=== PATIENT | female | born 1980 | race Caucasian/White ===

== ENCOUNTER 2016-12-28 10:45 | Emergency (ER) | payer OTHER, SELFPAY ==
[2016-12-28 11:57] LABS: #Eosinphils 0.3 thou/uL (0.0-0.7); #Lymphocytes 1.8 thou/uL (1.20-3.40); #Monocytes 0.4 thou/uL (0.11-0.59); #Neutrophils 5.7 thou/uL (1.40-6.50); %Basophils 0.4 % (0.0-1.0); %Eosinophils 3.3 % (0.0-10.0); %Lymphocytes 21.8 % (21.0-51.0); %Monocytes 4.6 % (0.0-10.0); Hematocrit 42.8 % (36.0-47.0); Mean Platelet Volume 7.3 fL (7.4-10.4); Red Blood Cell (RBC) Count 4.43 mill/uL (4.20-5.40); White Blood Cell (WBC) Count 8.1 thou/uL (4.8-10.8)
[2016-12-28 12:17] LABS: Bilirubin Negative (Negative); Blood, Urine Negative (Negative); Glucose, Urine (Dipstick) Negative (Negative); Ketone, Urine Negative (Negative); Nitrite Negative (Negative); Protein, Urine (Dipstick) 30 mg/dL (Neg-Trace); Urobilinogen 0.2 mg/dL (0.2-1.0)
[2016-12-28 12:23] LABS: ALT (SGPT) 8 U/L (8-55); AST (SGOT) 11 U/L (5-34); Alkaline Phosphatase 81 U/L (40-150); Anion Gap 13 mmol/L (10-20); BUN (Urea Nitrogen) 11 mg/dL (7.0-18.7); Bilirubin, Total 0.3 mg/dL (0.2-1.2); Calc. Creatinine Clearance 0 mL/min (70-130); Calcium 9.4 mg/dL (7.8-10.44); Carbon Dioxide 14 mmol/L (22-29); Chloride 112 mmol/L (98-107); Estimated GFR-MDRD 78
[2016-12-28 12:23] LABS: Bacteria/HPF 1+ HPF (None Seen); Hyaline Casts/LPF 4-6 HYALINE CAST LPF (0-3 Hyaline)
[2016-12-28] MEDS ORDERED: Dexamethasone 10 MG/ML VIAL ONE (13:19)
--- NOTE | 2016-12-28 13:50 | RAD ---
PA AND LATERAL CHEST: Date: 12/28/16 HISTORY: Cough. COMPARISON: 09/11/12. FINDINGS: Cardiac silhouette and pulmonary vasculature are within normal limits. The lungs remain clear. There has been no interval change compared to prior study. IMPRESSION: No acute cardiopulmonary process. POS: [facility]
== END 2016-12-28 14:29 | disposition home or self-care (01) ==
LOC: ERS 10:45
DX: J40 Bronchitis, not specified as acute or chronic (principal); N39.0 Urinary tract infection, site not specified; I10 Essential (primary) hypertension; F31.9 Bipolar disorder, unspecified; F17.210 Nicotine dependence, cigarettes, uncomplicated; Z79.899 Other long term (current) drug therapy
CPT/HCPCS: 36415; 71020; 80053; 81003; 81015; 81025; 85025; 96372; J1100; J7620

== ENCOUNTER 2017-02-28 21:01 | Emergency (ER) | payer SELFPAY ==
[2017-02-28 21:28] LABS: Bilirubin Small (Negative); Blood, Urine Negative (Negative); Clarity Clear (Clear); Glucose, Urine (Dipstick) Negative (Negative); Leukocyte Small (Negative); Nitrite Negative (Negative); Protein, Urine (Dipstick) 30 mg/dL (Neg-Trace); Urobilinogen 0.2 mg/dL (0.2-1.0)
[2017-02-28] MEDS ORDERED: Ibuprofen 800 MG TAB ONE (21:37)
[2017-02-28 21:50] LABS: Bacteria/HPF 1+ HPF (None Seen); Hyaline Casts/LPF 0-3 HYALINE CAST LPF (0-3 Hyaline); RBC/HPF 0-3 HPF (0-3); Specific Gravity, Urine 1.036 (1.002-1.036)
== END 2017-02-28 22:15 | disposition home or self-care (01) ==
LOC: SCSER 21:01
DX: N39.0 Urinary tract infection, site not specified (principal); I10 Essential (primary) hypertension; F31.9 Bipolar disorder, unspecified; F17.210 Nicotine dependence, cigarettes, uncomplicated
CPT/HCPCS: 81003; 81015; 87804; 99406

== ENCOUNTER 2017-03-18 13:01 | Observation (INO) | payer SELFPAY ==
[2017-03-18 13:37] LABS: #Basophils 0.1 thou/uL (0.0-0.2); #Eosinphils 0.2 thou/uL (0.0-0.7); #Lymphocytes 2.7 thou/uL (1.20-3.40); #Monocytes 0.5 thou/uL (0.11-0.59); #Neutrophils 5.7 thou/uL (1.40-6.50); %Eosinophils 2.7 % (0.0-10.0); %Lymphocytes 29.1 % (21.0-51.0); %Monocytes 5.5 % (0.0-10.0); %Neutrophils 61.7 % (42.0-75.0); Mean Corpuscular Hemoglobin 29.2 pg (27.0-31.0); Mean Corpuscular Volume 91.2 fl (81.0-99.0); Mean Platelet Volume 9.2 fL (7.4-10.4); Platelet Count 275 thou/uL (130-400); RBC Distribution Width 14.2 % (11.5-14.5); White Blood Cell (WBC) Count 9.2 thou/uL (4.8-10.8)
[2017-03-18 13:55] LABS: ALT (SGPT) 39 U/L (8-55); AST (SGOT) 34 U/L (5-34); Albumin 3.8 g/dL (3.5-5.0); Alkaline Phosphatase 92 U/L (40-150); Anion Gap 17 mmol/L (10-20); BUN (Urea Nitrogen) 11 mg/dL (7.0-18.7); Bilirubin, Total 0.3 mg/dL (0.2-1.2); Calc. Creatinine Clearance 0 mL/min (70-130); Calcium 9.8 mg/dL (7.8-10.44); Carbon Dioxide 20 mmol/L (22-29); Chloride 104 mmol/L (98-107); Estimated GFR-MDRD 67; Globulin 3.7 g/dL (2.4-3.5); Glucose 100 mg/dL (70-105); Potassium 3.8 mmol/L (3.5-5.1); Protein, Total 7.5 g/dL (6.0-8.3); Sodium 137 mmol/L (136-145)
[2017-03-18 13:57] LABS: BHCG - Serum Negative (NEGATIVE); Pregs Control Background? CLEAR/WHITE (CLR/WHITE); Pregs Control Bar Appear? YES (CONTROL BAR)
[2017-03-18 14:14] LABS: Bilirubin Moderate (Negative); Blood, Urine Moderate (Negative); Clarity Cloudy (Clear); Glucose, Urine (Dipstick) Negative (Negative); Leukocyte Large (Negative); Nitrite Negative (Negative); Protein, Urine (Dipstick) > or equal to 300 mg/dL (Neg-Trace); Specific Gravity, Urine 1.025 (1.005-1.030); Urobilinogen 0.2 mg/dL (0.2-1.0)
[2017-03-18 14:19] LABS: Bacteria/HPF Rare-Few HPF (None Seen)
[2017-03-18] MEDS ORDERED: Ondansetron HCl/PF 4 MG/2 ML Vial IVP PRN (21:57)
[2017-03-18] MEDS ORDERED: Ondansetron ODT 4 MG TAB SL PRN (21:57)
[2017-03-18] MEDS ORDERED: Acetaminophen 325 MG TAB PO PRN (21:57)
[2017-03-18] MEDS ORDERED: Sulfameth/Trimethoprim DS 800-160mg TAB PO SCH (22:00)
[2017-03-18] MEDS: Sodium Chloride 0.9% 1,000 ML IV SCH (22:13)
[2017-03-19] MEDS: Sodium Chloride 0.9% 1,000 ML IV SCH ×2 (01:42→06:13)
[2017-03-19 08:28] VITALS: BMI 34.9
[2017-03-19] MEDS ORDERED: Sulfameth/Trimethoprim DS 800-160mg TAB PO SCH (09:00)
[2017-03-19 09:04] LABS: #Basophils 0.1 thou/uL (0.0-0.2); #Eosinphils 0.2 thou/uL (0.0-0.7); #Lymphocytes 1.8 thou/uL (1.20-3.40); #Monocytes 0.4 thou/uL (0.11-0.59); #Neutrophils 3.2 thou/uL (1.40-6.50); %Basophils 1.3 % (0.0-1.0); %Eosinophils 3.3 % (0.0-10.0); %Lymphocytes 31.4 % (21.0-51.0); %Monocytes 7.7 % (0.0-10.0); %Neutrophils 56.4 % (42.0-75.0); Hemoglobin 11.7 g/dL (12.0-16.0); Mean Corpuscular HGB CONC 31.8 g/dL (32.0-36.0); Mean Corpuscular Hemoglobin 30.3 pg (27.0-31.0); Mean Corpuscular Volume 95.3 fl (81.0-99.0); Mean Platelet Volume 8.8 fL (7.4-10.4); Platelet Count 207 thou/uL (130-400); RBC Distribution Width 13.9 % (11.5-14.5); Red Blood Cell (RBC) Count 3.87 mill/uL (4.20-5.40); White Blood Cell (WBC) Count 5.6 thou/uL (4.8-10.8)
[2017-03-19 09:09] LABS: Anion Gap 10 mmol/L (10-20); BUN (Urea Nitrogen) 8 mg/dL (7.0-18.7); Calc. Creatinine Clearance 188 mL/min (70-130); Calcium 7.7 mg/dL (7.8-10.44); Carbon Dioxide 14 mmol/L (22-29); Chloride 116 mmol/L (98-107); Estimated GFR-MDRD Greater than 90; Glucose 80 mg/dL (70-105); Magnesium 1.6 mg/dL (1.6-2.6); Potassium 3.7 mmol/L (3.5-5.1); Sodium 136 mmol/L (136-145)
[2017-03-19] MEDS ORDERED: Sodium Chloride 0.9% 1,000 ML IV SCH (11:08)
[2017-03-19] MEDS ORDERED: HYDROcodone/Acetaminophen 10/325 mg Tablet PO PRN (11:08)
[2017-03-19] MEDS ORDERED: HYDROcodone/Acetaminophen 5/325 mg Tablet PO PRN (11:08)
[2017-03-19] MEDS ORDERED: Acetaminophen 325 MG TAB PO PRN (11:08)
[2017-03-19] MEDS ORDERED: Ondansetron ODT 4 MG TAB PO PRN (11:08)
[2017-03-19] MEDS ORDERED: Enoxaparin Sodium 40 MG/0.4 ML SYRINGE SC SCH (11:15)
[2017-03-19 14:57] LABS: Bilirubin Negative (Negative); Blood, Urine Negative (Negative); Clarity CLEAR (Clear); Glucose, Urine (Dipstick) Negative (Negative); Leukocyte Trace (Negative); Nitrite Negative (Negative); Protein, Urine (Dipstick) Negative (Neg-Trace); Specific Gravity, Urine 1.011 (1.002-1.036); Urobilinogen 0.2 mg/dL (0.2-1.0); pH, Urine 6.5 (5.0-9.0)
[2017-03-19 15:03] LABS: Bacteria/HPF Rare-Few HPF (None Seen); Hyaline Casts/LPF 0-3 HYALINE CAST LPF (0-3 Hyaline); Pathc Cast-AUWi Flag 0.27 (0-2.49); RBC/HPF 0-3 HPF (0-3)
[2017-03-19 16:50] VITALS: BP 103/59; TEMP 98.7
--- NOTE | 2017-03-19 16:53 | DIS ---
DATE OF ADMISSION: 03/18/2017 DATE OF DISCHARGE: 03/19/2017 DISCHARGE DIAGNOSES: 1. Moderate dehydration. 2. Mild urinary tract infection. 3. Orthostatic hypotension. 4. Medical nonadherence. CONSULTATIONS: None. PROCEDURES: None. HOSPITAL COURSE: Ms. Newton is a 37-year-old female who has had a diagnosis of UTI in early of this year. She did not fill her medicine due to cost and thus never got it treated. She states she has been eating and drinking fine, but over the last few days has had lightheadedness when standing and syncopized a few days prior to admission. On arrival, she was noted to be 83/50, lactate was negative, bicarbonate 20 and we were called for ad mission. The patient was accepted by the dry cell battery assembler and transferred to the floor. The patient was evaluated b y me this morning on rounds. She was continued on antibiotics, through the day her blood pressure re mained stable after 2 liters of IV fluids. Orthostatic blood pressures done this morning showed a he art rate stable and blood pressure in the low 100s over 50s. She has no lightheadedness. Through the day, she is able to tolerate breakfast and lunch without any difficulty or nausea and vom iting and this afternoon was stable for discharge. PHYSICAL EXAMINATION: The patient was seen and examined on the day of discharge. Discharge plan and disposition was discussed with the patient face to face at the bedside. DISCHARGE MEDICATIONS: Cipro 500 mg p.o. b.i.d., 8 tablets prescribed 1 p.o. b.i.d. until gone, of 03/20/2017. FOLLOWUP APPOINTMENTS: Primary care physician. She does not claim any PCP though, it is listed as Aidee Archuleta in the computer system. DISCHARGE DIET: No restrictions. DISCHARGE ACTIVITY: As tolerated. DISCHARGE CONDITION: Stable. DISPOSITION: Being discharged home via private vehicle.
--- NOTE | 2017-03-19 19:22 | HP ---
PRIMARY CARE PHYSICIAN: None. Listed as Dr. Iván Archuleta in the computer. The patient was placed in observation in the ER, 03/18/2017. DATE OF SERVICE: 03/19/2017 TIME OF SERVICE: 1020. CHIEF COMPLAINT: Urinary tract infection, low blood pressure. HISTORY OF PRESENT ILLNESS: Ms. Newton is a 37-year-old female, who presented to the emergency de partment on 03/18/2017 for lightheadedness and syncope. She basically woke up on the morning of 02/28 feeling lightheaded, so she passed out x1 around noon on 03/17/2017. She continued to feel li ghtheaded when standing up and just did not feel right, so decided to present to the emergency depart ment on 03/18/2017 for evaluation. She had a history of being diagnosed with a UTI back in early February of this year, she was prescribe d an antibiotic, but never filled it due to cost. She has had some suprapubic abdominal pain and dys uria. Denies any hematuria. In the emergency room, she was noted to have pyuria, but only few bacteria. She had few epithelial c ells and was subsequently admitted for UTI and possible sepsis. The rest of her labs remained normal . The patient was assessed by the application security architect and turned over to the day shift to complete the admiss ion. On my arrival, she was feeling fine. She tolerated breakfast without any difficulties. Review of the chart showed in the emergency department, she had 3 liters normal saline and has levofl oxacin. PAST MEDICAL HISTORY: 1. Hypertension. 2. History of a back fracture several years ago. 3. Anxiety/depression. 4. History of suicidal ideation overdose in the summer of 2016. 5. Bipolar disorder. PAST SURGICAL HISTORY: Appendectomy and tonsillectomy remotely. HOME MEDICATIONS: None. ALLERGIES: ERYTHROMYCIN and PENICILLIN, cause rash and sore throat. FAMILY HISTORY: Negative for clotting or bleeding disorder, no immune dysfunction. SOCIAL HISTORY: Significant for tobacco about 6-7 cigarettes per day. Rare alcohol use socially and she does have 3 kids at home with her. REVIEW OF SYSTEMS: A 10-point review of systems was performed, negative for all other systems except as per HPI. PHYSICAL EXAMINATION: VITAL SIGNS: Temperature on arrival 97.9, temperature max since presentation is 99.2, current pulse 67, blood pressure 98/50, respiratory rate 18, satting 91% on room air. GENERAL: She is awake. She is alert. She is oriented x3. She is a well-developed and well-nourish ed white female, appears to be in no acute distress. HEENT: Normocephalic, atraumatic. Pupils are equal, round, and reactive to light bilaterally. Mucu s membranes are moist. She has no visible lesions. No thrush. NECK: Supple. There is no lymphadenopathy, no JVD, no thyromegaly. She has normal carotid upstroke s without bruits. LUNGS: Clear. She has no wheezing, no rales, or rhonchi. CARDIOVASCULAR: Normal S1, S2. No S3, S4. No audible murmurs. ABDOMEN: Soft, nontender, and nondistended. No masses, no organomegaly. No rebound, rigidity, or g uarding. Mild superior temporal tenderness. No CVA tenderness. EXTREMITIES: No cyanosis or clubbing. No edema. 2+ peripheral pulses. SKIN: Warm and well perfused. There are no rashes. No lesions. NEUROLOGIC: Cranial nerves II-XII grossly intact. She has 5/5 strength in all 4 extremities. No fo butch deficits. Normal speech pattern. MUSCULOSKELETAL: Normal to inspection. No joint inflammation or palpable effusions. LABORATORY DATA: Sodium 137, potassium 3.8, chloride 104, bicarb 20, BUN 11, creatinine 0.94, glucos e 100, and calcium 9.8. Lactic acid 1.1. Urinalysis shows 4-6 squamous epithelial cells, greater th an 50 white blood cells, few bacteria, negative nitrite. Liver functions normal. CBC showed white count 9.2, hemoglobin 14.0, hematocrit of 43.8, and platelet count is 275,000. ASSESSMENT AND PLAN: 1. Orthostasis: Not quite clear. The patient states she is eating and drinking okay. After gettin g 3 liters of fluids, she did not have any further orthostasis or a negative tilt, seemed to be resol tabitha. 2. Possible urinary tract infection: She was diagnosed earlier this month. She does have pyuria an d a few squamous cells, she has only few bacteria and negative nitrite. We will treat her for 5 days with Cipro. Most of the day she did not eat or drink okay. They will let her go home on Cipro. 3. Hypertension, not on medication. Certainly not hypertensive now. 4. History of anxiety/depression/bipolar disorder, not on treatment.
[2017-03-19] MEDS ORDERED: Famotidine 20 MG TAB PO SCH (21:00)
--- NOTE | 2017-03-21 13:54 | PDOC.EVN ---
Event Note - Event Note Event Note: RN called - Patient here today since she lost her prescription. I sent Cipro to [facility] electronically.
== END 2017-03-19 17:21 | disposition home or self-care (01) ==
LOC: SCSER 13:01 → INTOOBSV 18:42 → 2NO 18:42
PROVIDERS: ADMIT Internal Medicine; ATTEND Internal Medicine
DX: N39.0 Urinary tract infection, site not specified (principal); E86.0 Dehydration; I95.1 Orthostatic hypotension; F31.9 Bipolar disorder, unspecified; F17.210 Nicotine dependence, cigarettes, uncomplicated; Z88.1 Allergy status to other antibiotic agents; Z88.0 Allergy status to penicillin; Z91.14 Patient's other noncompliance with medication regimen; Z90.49 Acquired absence of other specified parts of digestive tract; Z90.89 Acquired absence of other organs
CPT/HCPCS: 36415; 51701; 80048; 80053; 81001; 81003; 81015; 83605; 83690; 83735; 84703; 85025; 87040; 87086; 93005; 96361; 96365; 96372; A4353; G0378; J1650; J1956

== ENCOUNTER 2017-03-27 15:58 | Emergency (ER) | payer SELFPAY ==
[2017-03-27 16:54] LABS: Bilirubin Negative (Negative); Blood, Urine Negative (Negative); Clarity Clear (Clear); Glucose, Urine (Dipstick) Negative (Negative); Leukocyte Negative (Negative); Nitrite Negative (Negative); Protein, Urine (Dipstick) Negative (Neg-Trace); Urobilinogen 0.2 mg/dL (0.2-1.0); pH, Urine 6.5 (5.0-9.0)
[2017-03-27 16:58] LABS: #Basophils 0.1 thou/uL (0.0-0.2); #Eosinphils 0.3 thou/uL (0.0-0.7); #Lymphocytes 3.8 thou/uL (1.20-3.40); #Monocytes 0.5 thou/uL (0.11-0.59); #Neutrophils 3.3 thou/uL (1.40-6.50); %Basophils 1.5 % (0.0-1.0); %Eosinophils 3.4 % (0.0-10.0); %Lymphocytes 47.4 % (21.0-51.0); %Monocytes 6.6 % (0.0-10.0); Hemoglobin 10.8 g/dL (12.0-16.0); Mean Corpuscular HGB CONC 32.9 g/dL (32.0-36.0); Mean Corpuscular Hemoglobin 29.3 pg (27.0-31.0); Mean Corpuscular Volume 89.3 fl (81.0-99.0); Mean Platelet Volume 9.2 fL (7.4-10.4); Platelet Count 258 thou/uL (130-400); Red Blood Cell (RBC) Count 3.69 mill/uL (4.20-5.40); White Blood Cell (WBC) Count 8.1 thou/uL (4.8-10.8)
[2017-03-27 17:16] LABS: Amphetamine Not Detected (NotDetected); Cocaine Metabolite Screen Not Detected (NotDetected); Methamphetamine Not Detected (NotDetected); Opiate Screen Not Detected (NotDetected); Phencyclidine (PCP) Not Detected (NotDetected); THC/Cannabinoid Screen Not Detected (NotDetected)
[2017-03-27 17:17] LABS: Barbiturates Screen Not Detected (NotDetected); Benzodiazepine Screen Detected (NotDetected); Medtox Control Line Valid? VALID (VALID); Methadone Not Detected (NotDetected); Oxycodone Screen Not Detected (NotDetected); Tricyclic Screen Not Detected (NotDetected)
[2017-03-27 17:20] LABS: ALT (SGPT) 18 U/L (8-55); AST (SGOT) 14 U/L (5-34); Albumin 3.9 g/dL (3.5-5.0); Alkaline Phosphatase 70 U/L (40-150); Anion Gap 15 mmol/L (10-20); BUN (Urea Nitrogen) 10 mg/dL (7.0-18.7); Bilirubin, Total 0.2 mg/dL (0.2-1.2); Calc. Creatinine Clearance 0 mL/min (70-130); Calcium 9.2 mg/dL (7.8-10.44); Carbon Dioxide 17 mmol/L (22-29); Chloride 109 mmol/L (98-107); Estimated GFR-MDRD 82; Globulin 2.7 g/dL (2.4-3.5); Glucose 98 mg/dL (70-105); Potassium 3.1 mmol/L (3.5-5.1); Protein, Total 6.6 g/dL (6.0-8.3); Sodium 138 mmol/L (136-145)
[2017-03-27 17:21] LABS: Troponin I Less than 0.010 ng/mL (< 0.028)
--- NOTE | 2017-03-27 17:26 | RAD ---
CHEST 1 VIEW: Date: 03/27/17 HISTORY: Cough. COMPARISON: 03/16/07 and 12/28/16. FINDINGS: Portable single view chest demonstrates a normal cardiac silhouette. Pulmonary vessels and hilum are normal. Costophrenic angles are clear. No consolidation or mass. No pneumothorax or osseous abnormali ties. IMPRESSION: No acute cardiopulmonary process. POS: [facility]
[2017-03-27 17:32] LABS: Acetaminophen Less than 6.0 mcg/mL (10.0-30.0); Salicylate Less than 8.0 mg/dL (15.0-30.0)
[2017-03-27] MEDS ORDERED: Potassium Chloride 20 MEQ TAB ONE (17:47)
== END 2017-03-27 18:25 | disposition home or self-care (01) ==
LOC: SCSER 15:58
DX: I95.1 Orthostatic hypotension (principal); F11.90 Opioid use, unspecified, uncomplicated; E87.6 Hypokalemia; F17.210 Nicotine dependence, cigarettes, uncomplicated; F41.9 Anxiety disorder, unspecified; F31.9 Bipolar disorder, unspecified; Z79.899 Other long term (current) drug therapy
CPT/HCPCS: 71045; 80053; 80306; 80307; 81003; 83605; 84484; 85025; 93005; 96361; 96374; J1610

== ENCOUNTER 2017-05-27 12:48 | Emergency (ER) | payer SELFPAY ==
[2017-05-27 13:42] LABS: #Basophils 0.1 thou/uL (0.0-0.2); #Eosinphils 0.2 thou/uL (0.0-0.7); #Lymphocytes 1.4 thou/uL (1.20-3.40); #Monocytes 0.5 thou/uL (0.11-0.59); #Neutrophils 5.1 thou/uL (1.40-6.50); %Basophils 1.1 % (0.0-1.0); %Eosinophils 3.4 % (0.0-10.0); %Lymphocytes 18.6 % (21.0-51.0); %Monocytes 7.2 % (0.0-10.0); %Neutrophils 69.8 % (42.0-75.0); Hemoglobin 12.1 g/dL (12.0-16.0); Mean Corpuscular HGB CONC 31.9 g/dL (32.0-36.0); Mean Corpuscular Hemoglobin 27.5 pg (27.0-31.0); Mean Corpuscular Volume 86.1 fl (81.0-99.0); Mean Platelet Volume 9.7 fL (7.4-10.4); Platelet Count 269 thou/uL (130-400); RBC Distribution Width 15.1 % (11.5-14.5); Red Blood Cell (RBC) Count 4.41 mill/uL (4.20-5.40); White Blood Cell (WBC) Count 7.3 thou/uL (4.8-10.8)
[2017-05-27 13:46] LABS: BHCG - Serum Negative (NEGATIVE); Pregs Control Background? CLEAR/WHITE (CLR/WHITE); Pregs Control Bar Appear? YES (CONTROL BAR)
[2017-05-27 13:53] LABS: ALT (SGPT) 13 U/L (8-55); AST (SGOT) 15 U/L (5-34); Acetaminophen Less than 6.0 mcg/mL (10.0-30.0); Alcohol Less than 10 mg/dL (Less than 10); Alkaline Phosphatase 85 U/L (40-150); Anion Gap 12 mmol/L (10-20); BUN (Urea Nitrogen) 8 mg/dL (7.0-18.7); Bilirubin, Total 0.3 mg/dL (0.2-1.2); Calc. Creatinine Clearance 0 mL/min (70-130); Calcium 9.3 mg/dL (7.8-10.44); Carbon Dioxide 18 mmol/L (22-29); Chloride 112 mmol/L (98-107); Estimated GFR-MDRD 88; Globulin 3.2 g/dL (2.4-3.5); Glucose 60 mg/dL (70-105); Protein, Total 7.2 g/dL (6.0-8.3); Salicylate Less than 8.0 mg/dL (15.0-30.0); Sodium 139 mmol/L (136-145)
[2017-05-27 14:12] LABS: Thyroid Stimulating Hormone 0.9267 uIU/mL (0.35-4.94)
[2017-05-27 14:13] LABS: Bilirubin Negative (Negative); Blood, Urine Trace (Negative); Clarity Cloudy (Clear); Glucose, Urine (Dipstick) Negative (Negative); Leukocyte Large (Negative); Nitrite Positive (Negative); Protein, Urine (Dipstick) Negative (Neg-Trace); Urobilinogen 0.2 mg/dL (0.2-1.0); pH, Urine 6.5 (5.0-9.0)
[2017-05-27 14:15] LABS: Bacteria/HPF 3+ HPF (None Seen); RBC/HPF 21-50 HPF (0-3); WBC/HPF 21-50 HPF (0-3)
[2017-05-27 14:23] LABS: Opiate Screen Detected (NotDetected)
[2017-05-27 14:24] LABS: Amphetamine Not Detected (NotDetected); Barbiturates Screen Not Detected (NotDetected); Benzodiazepine Screen Detected (NotDetected); Cocaine Metabolite Screen Not Detected (NotDetected); Medtox Control Line Valid? VALID (VALID); Methadone Not Detected (NotDetected); Methamphetamine Not Detected (NotDetected); Oxycodone Screen Not Detected (NotDetected); Phencyclidine (PCP) Not Detected (NotDetected); THC/Cannabinoid Screen Not Detected (NotDetected); Tricyclic Screen Not Detected (NotDetected)
[2017-05-27] MEDS ORDERED: Potassium Chloride 20 MEQ TAB ONE (15:31)
[2017-05-27] MEDS ORDERED: Ciprofloxacin 500 MG TAB ONE (15:31)
[2017-05-27 18:53] LABS: HBCM Index 0.08 S/CO (0-0.79); HBSAg Index 0.21 S/CO (0-0.99); HIV (1/2) Antibody/Antigen Non-Reactive (NonReactive); HIV 1/2 INDEX 0.09 S/CO (<1.00); Hep A IgM AB Non-Reactive (NonReactive); Hep B Surf Ag Non-Reactive S/CO (NonReactive); Hep C IgG Ab Non-Reactive (NonReactive); Hep C Index 0.19 S/CO (0-0.79); Hepatitis B Core IGM Abs Non-Reactive (NonReactive)
== END 2017-05-27 16:25 | disposition home or self-care (01) ==
LOC: SCSER 12:48
DX: F11.10 Opioid abuse, uncomplicated (principal); F32.9 Major depressive disorder, single episode, unspecified; N39.0 Urinary tract infection, site not specified; I10 Essential (primary) hypertension; F41.9 Anxiety disorder, unspecified; F17.210 Nicotine dependence, cigarettes, uncomplicated; Z79.899 Other long term (current) drug therapy
CPT/HCPCS: 36415; 80053; 80074; 80306; 80307; 81003; 81015; 82550; 84443; 84703; 85025; 87389; 93005; 99406

== ENCOUNTER 2017-07-07 13:10 | Emergency (ER) | payer SELFPAY | END 2017-07-07 13:41 | disposition home or self-care (01) | LOC: ERS 13:10 | DX: L03.317 Cellulitis of buttock (principal); I10 Essential (primary) hypertension; F41.9 Anxiety disorder, unspecified; F31.9 Bipolar disorder, unspecified; F17.210 Nicotine dependence, cigarettes, uncomplicated; Z79.899 Other long term (current) drug therapy | CPT/HCPCS: 99283 ==

== ENCOUNTER 2017-11-30 19:48 | Emergency (ER) | payer OTHER ==
[2017-11-30] MEDS ORDERED: Lidocaine 1% w/Epinephrine 1:100K 20 ML VIAL ONE (21:14)
--- NOTE | 2017-12-01 02:49 | HP ---
HISTORY OF PRESENT ILLNESS AND ER EVALUATION: A 37-year-old female who presents to the emergency jonathon m after injecting heroin into her left hip. She has developed an abscess over her left hip. Dr. Tea love has evaluated her and performed a bedside ultrasound and asked me to see her regarding this comp ronaldo abscess multifocal left hip. The patient states she is allergic to TRAMADOL and causes GI upset and her tongue . The patient states that she has tried to stop using heroin and she would like to stop. I have asked the emergency room nurses to provide her resources in the community to help he r with that. PHYSICAL EXAMINATION: Patient has a large abscess on left hip, in the skin and subcutaneous tissues it appears clinically, there are two separate areas, one laterally and one a little more posterior se parate. ASSESSMENT: Left hip abscess. PLAN: Bedside drainage in the emergency room, discharged home. Would ask her to see me in the offic e in a week. I have explained to her who was present. Wound care,I have asked them to remov e the dressings tomorrow, washing with soap and water in the bath or shower, washing the open wound w ith soap and water, patting it dry, and placing normal saline wet to dry dressings. Dressing supplie s have been provided by the nurses. The patient will follow up in my office in a week or two and butch l sooner if she has any problems. She is given clindamycin and Bactrim by Dr. Izaguirre. She reports pain medications and we have offered tramadol, but she states that TRAMADOL causes her GI upset and h er we can give her is ibuprofen and Tylenol, which she says she has at home and she will use th at.
--- NOTE | 2017-12-01 02:50 | OP ---
PREOPERATIVE DIAGNOSIS: Abscess multifocal left hip after heroin skin popping. POSTOPERATIVE DIAGNOSIS: Abscess multifocal left hip after heroin skin popping. PROCEDURE: Incision and drainage at bedside abscesses left hip; one is large that one approximately 8 cm, the other one smaller 3-4 cm. Copious purulent material evacuated and sent for culture. wet-to-dry dressing. SURGEON: Dr. Jairon Regalado. ANESTHESIA: 1% Xylocaine with epinephrine, local anesthetic. PROCEDURE IN DETAIL: At the patient's bedside, left hip was prepared with Betadine and local anesthe tic 1% Xylocaine with epinephrine infiltrated into skin and subcutaneous tissue and large abscess dra gordillo a purulent material. Loculations broken down and saline wet-to-dry dressings applied. A fluctu ant area was noted slightly a little more posterior area and this area was also prepared, anesthetize d with local anesthetic and drained of approximately 3-4 cm abscess with copious purulent material. Saline wet-to-dry dressings applied. Wound care explained and patient discharged home with clindamyc in and Bactrim per Dr. Izaguirre, and she will take ibuprofen and Tylenol .
== END 2017-11-30 23:27 | disposition home or self-care (01) ==
LOC: ERS 19:48
DX: L02.416 Cutaneous abscess of left lower limb (principal); F19.10 Other psychoactive substance abuse, uncomplicated; I10 Essential (primary) hypertension; F41.9 Anxiety disorder, unspecified; F31.9 Bipolar disorder, unspecified; F17.210 Nicotine dependence, cigarettes, uncomplicated; Z79.899 Other long term (current) drug therapy
CPT/HCPCS: 10060; 96365; J2001; J3370

== ENCOUNTER 2018-02-10 18:01 | Emergency (ER) | payer OTHER ==
[2018-02-10] MEDS ORDERED: Adacel (T-DAP) 0.5 ML SYRINGE ONE (18:48)
== END 2018-02-10 19:05 | disposition home or self-care (01) ==
LOC: ERS 18:01
DX: N61.1 Abscess of the breast and nipple (principal); N61.0 Mastitis without abscess; I10 Essential (primary) hypertension; F31.9 Bipolar disorder, unspecified; F17.210 Nicotine dependence, cigarettes, uncomplicated; Z79.899 Other long term (current) drug therapy
CPT/HCPCS: 90471; 90715

== ENCOUNTER 2018-06-05 19:17 | Emergency (ER) | payer OTHER ==
[2018-06-05 20:08] LABS: Pregnancy Test - Urine (BHCG) Negative (Negative); Pregu Control Background? CLEAR/WHITE (CLR/WHITE); Pregu Control Bar Appear? YES (CONTROL BAR)
[2018-06-05] MEDS ORDERED: Ketorolac Tromethamine 30 MG/ML VIAL ONE (20:15)
== END 2018-06-05 20:50 | disposition home or self-care (01) ==
LOC: SCSER 19:17
DX: M54.41 Lumbago with sciatica, right side (principal); I10 Essential (primary) hypertension; F31.9 Bipolar disorder, unspecified; F17.210 Nicotine dependence, cigarettes, uncomplicated; Z79.899 Other long term (current) drug therapy
CPT/HCPCS: 81025; 96372; J1885

== ENCOUNTER 2018-06-30 16:47 | Emergency (ER) | payer OTHER ==
[2018-06-30] MEDS ORDERED: Aspirin Chewable 81 MG TAB ONE (17:21)
[2018-06-30] MEDS ORDERED: Lidocaine Viscous Sol 2% 15 ml UD Cup ONE (17:24)
[2018-06-30] MEDS ORDERED: Mag-Al 1200 mg/1200 mg/30 ML UDCUP ONE (17:24)
--- NOTE | 2018-06-30 17:27 | RAD ---
Portable frontal chest radiograph: 06/30/2018 COMPARISON: 03/27/2017 HISTORY: Vomiting, cough, chest pain FINDINGS: Lungs are clear. Heart and mediastinal contours appear within normal limits. IMPRESSION: No acute findings.
[2018-06-30 17:41] LABS: #Basophils 0.1 thou/uL (0.0-0.2); #Eosinphils 0.3 thou/uL (0.0-0.7); #Lymphocytes 3.4 thou/uL (1.20-3.40); #Monocytes 0.8 thou/uL (0.11-0.59); #Neutrophils 8.7 thou/uL (1.40-6.50); %Basophils 0.5 % (0.0-1.0); %Eosinophils 2.1 % (0.0-10.0); %Lymphocytes 25.7 % (21.0-51.0); %Monocytes 6.2 % (0.0-10.0); %Neutrophils 65.6 % (42.0-75.0); Mean Corpuscular HGB CONC 33.3 g/dL (32.0-36.0); Mean Corpuscular Hemoglobin 28.2 pg (27.0-31.0); Mean Corpuscular Volume 84.6 fL (78.0-98.0); Mean Platelet Volume 8.4 fL (7.4-10.4); Platelet Count 777 thou/uL (130-400); RBC Distribution Width 15.8 % (11.5-14.5); Red Blood Cell (RBC) Count 4.27 mill/uL (4.20-5.40); White Blood Cell (WBC) Count 13.3 thou/uL (4.8-10.8)
[2018-06-30 18:29] LABS: BHCG - Serum Negative (NEGATIVE); Pregs Control Background? CLEAR/WHITE (CLR/WHITE); Pregs Control Bar Appear? YES (CONTROL BAR)
[2018-06-30 18:47] LABS: ALT (SGPT) 57 U/L (8-55); AST (SGOT) 38 U/L (5-34); Albumin 3.9 g/dL (3.5-5.0); Alkaline Phosphatase 131 U/L (40-150); Anion Gap 19 mmol/L (10-20); BUN (Urea Nitrogen) 14 mg/dL (7.0-18.7); Bilirubin, Total Less than 0.2 mg/dL (0.2-1.2); Calc. Creatinine Clearance 0 mL/min (70-130); Calcium 9.5 mg/dL (7.8-10.44); Carbon Dioxide 12 mmol/L (22-29); Chloride 111 mmol/L (98-107); Estimated GFR-MDRD Greater than 90; Globulin 3.7 g/dL (2.4-3.5); Glucose 91 mg/dL (70-105); Potassium 3.5 mmol/L (3.5-5.1); Protein, Total 7.6 g/dL (6.0-8.3); Sodium 138 mmol/L (136-145)
== END 2018-06-30 19:14 | disposition home or self-care (01) ==
LOC: ERS 16:47
DX: R07.89 Other chest pain (principal); J20.9 Acute bronchitis, unspecified; K21.9 Gastro-esophageal reflux disease without esophagitis; I10 Essential (primary) hypertension; F17.210 Nicotine dependence, cigarettes, uncomplicated; Z79.899 Other long term (current) drug therapy
CPT/HCPCS: 36415; 71045; 80053; 84484; 84703; 85025; 87804; 93005; 96360

== ENCOUNTER 2018-07-31 15:01 | Outpatient (CLI) | payer OTHER ==
[~2018-07-31 15:01] MED LIST: Gadobenate Dimeglumine 529 MG/1 ML (20ML VIAL) ONE
--- NOTE | 2018-07-31 16:35 | MRI ---
PRE AND POSTCONTRAST ENHANCED MRI LUMBAR SPINE: HISTORY: Dropfoot. M21.372. Multiplanar, multisequence pre and postcontrast enhanced MRI images lumbar spine obtained. FINDINGS: For the purposes of this dictation, the last freely mobile vertebral body will be considered to be th e L5 vertebral body. All other vertebral bodies are numbered according to this. T12-L1, L1-2, L2-3: Unremarkable. L3-4: There is disc desiccation. There is a mild broad-based central disc protrusion resulting in mil d compression of the thecal sac. The neural foramen are patent. L4-5: There is a huge central disc extrusion. The extruded material measures 1.5 x 1.1 x 1.8 cm. This results in severe compression of the thecal sac, central spine, and lateral recesses. L5-S1: There is a left L5-S1 central, paracentral and lateral recess disc protrusion which compresses the left L5-S1 lateral recess and mildly compresses the thecal sac. IMPRESSION: Large central L4-5 disc extrusion markedly compressing the thecal sac and resulting in critical L4-5 spinal stenosis. CODE T Transcribed Date/Time: 07/31/2018 4:42 PM
== END 2018-07-31 15:02 | disposition home or self-care (01) ==
LOC: SCSMRI 15:01
PROVIDERS: ATTEND Family Medicine
DX: M21.372 Foot drop, left foot (principal); M48.061 Spinal stenosis, lumbar region without neurogenic claudication; M51.26 Other intervertebral disc displacement, lumbar region
CPT/HCPCS: 72158; A9577

== ENCOUNTER 2018-08-07 13:34 | Outpatient (CLI) | payer OTHER ==
[2018-08-07 15:33] LABS: Mean Corpuscular HGB CONC 32.3 g/dL (32.0-36.0); Mean Corpuscular Hemoglobin 28.8 pg (27.0-31.0); Mean Corpuscular Volume 89.1 fL (78.0-98.0); Mean Platelet Volume 8.1 fL (7.4-10.4); Platelet Count 311 thou/uL (130-400); RBC Distribution Width 14.2 % (11.5-14.5); Red Blood Cell (RBC) Count 3.81 mill/uL (4.20-5.40); White Blood Cell (WBC) Count 6.5 thou/uL (4.8-10.8)
[2018-08-07 15:39] LABS: BHCG - Serum Negative (NEGATIVE); Pregs Control Background? CLEAR/WHITE (CLR/WHITE); Pregs Control Bar Appear? YES (CONTROL BAR)
[2018-08-07 15:54] LABS: Anion Gap 14 mmol/L (10-20); BUN (Urea Nitrogen) 15 mg/dL (7.0-18.7); Calc. Creatinine Clearance 0 mL/min (70-130); Calcium 8.8 mg/dL (7.8-10.44); Carbon Dioxide 14 mmol/L (22-29); Chloride 115 mmol/L (98-107); Estimated GFR-MDRD 88; Glucose 74 mg/dL (70-105); PTT 24.9 SEC (22.9-36.1); Potassium 3.8 mmol/L (3.5-5.1); Prothrombin Time 13.5 SEC (12.0-14.7); Sodium 139 mmol/L (136-145)
== END 2018-08-07 13:35 | disposition home or self-care (01) ==
LOC: LABBT 13:34
PROVIDERS: ATTEND Surgery
DX: Z01.818 Encounter for other preprocedural examination (principal); M51.26 Other intervertebral disc displacement, lumbar region; R29.898 Other symptoms and signs involving the musculoskeletal system
CPT/HCPCS: 80048; 84703; 85027; 85610; 85730; 93005; 93010

== ENCOUNTER 2018-08-29 13:26 | Inpatient (IN) | payer OTHER, SELFPAY ==
--- NOTE | 2018-08-29 14:43 | ULT ---
ULTRASOUND WITH DOPPLER DUPLEX VENOUS LOWER EXTREMITY LEFT: CPT: 97608 ICD-10-PCS: B54D HISTORY: Emergency exam for edema. TECHNIQUE: Color flow Doppler, spectral waveform analysis of pulsed Doppler, and fisher-scale imaging with alycia ricki and augmentation, were used to evaluate the bilateral common femoral, femoral, popliteal, estate attorney ior tibial, and superficial femoral, veins; and the proximal portions of the profunda femoral and gre ater saphenous, veins. FINDINGS: There is appropriate compressibility and flow within the imaged deep vein system of the left lower ex tremity without evidence of DVT. IMPRESSION: No deep vein thrombosis. POS: [facility]
[2018-08-29 14:55] LABS: #Eosinphils 0.4 thou/uL (0.0-0.7); #Lymphocytes 2.5 thou/uL (1.20-3.40); #Monocytes 0.7 thou/uL (0.11-0.59); #Neutrophils 4.7 thou/uL (1.40-6.50); %Basophils 0.3 % (0.0-1.0); %Eosinophils 4.7 % (0.0-10.0); %Lymphocytes 30.1 % (21.0-51.0); %Monocytes 8.7 % (0.0-10.0); Hemoglobin 8.7 g/dL (12.0-16.0); Mean Corpuscular HGB CONC 32.7 g/dL (32.0-36.0); Mean Corpuscular Hemoglobin 28.2 pg (27.0-31.0); Mean Corpuscular Volume 86.4 fL (78.0-98.0); Mean Platelet Volume 7.6 fL (7.4-10.4); Platelet Count 362 thou/uL (130-400); RBC Distribution Width 14.8 % (11.5-14.5); White Blood Cell (WBC) Count 8.3 thou/uL (4.8-10.8)
[2018-08-29 14:59] LABS: Bilirubin Negative (Negative); Blood, Urine Negative (Negative); Glucose, Urine (Dipstick) Negative (Negative); Leukocyte Negative (Negative); Nitrite Negative (Negative); Protein, Urine (Dipstick) 30 mg/dL (Neg-Trace); Urobilinogen 0.2 mg/dL (Less than 2)
[2018-08-29 15:03] LABS: Clarity Clear (Clear)
[2018-08-29 15:10] LABS: Bacteria/HPF Rare-Few HPF (None Seen); Crystals/HPF RARE CA OXALATE HPF (Negative); Hyaline Casts/LPF NONE SEEN LPF (0-3 Hyaline); RBC/HPF 0-3 HPF (0-3); WBC/HPF 0-3 HPF (0-3)
[2018-08-29 15:18] LABS: ALT (SGPT) 25 U/L (8-55); AST (SGOT) 15 U/L (5-34); Albumin 3.4 g/dL (3.5-5.0); Alkaline Phosphatase 102 U/L (40-150); Anion Gap 11 mmol/L (10-20); BUN (Urea Nitrogen) 17 mg/dL (7.0-18.7); Bilirubin, Total Less than 0.2 mg/dL (0.2-1.2); CRP (Inflammatory) 7.99 mg/dL (= or < 0.5); Calc. Creatinine Clearance 0 mL/min (70-130); Calcium 8.8 mg/dL (7.8-10.44); Carbon Dioxide 18 mmol/L (22-29); Chloride 116 mmol/L (98-107); Estimated GFR-MDRD 78; Globulin 3.3 g/dL (2.4-3.5); Glucose 87 mg/dL (70-105); Potassium 3.6 mmol/L (3.5-5.1); Protein, Total 6.7 g/dL (6.0-8.3); Sodium 141 mmol/L (136-145)
--- NOTE | 2018-08-29 16:12 | MRI ---
MRI OF THE LUMBAR SPINE WITH AND WITHOUT CONTRAST 08/29/18 COMPARISON: 08/27/18. HISTORY: Lumbar surgery August 08, 2018. For the past five days, calf has been swollen. Evaluate for possible ab scess. TECHNIQUE: MRI of the lumbar spine is performed with and without intravenous gadolinium administration. Multiseq uential, multiplanar imaging is performed. FINDINGS: Appropriate T1 marrow signal intensity of the lumbar vertebrae. Lumbar spine vertebral body height is maintained. No fracture. No significant STIR hyperintensity to suggest vertebral body edema or ligam entous injury. At the laminectomy defect, there is a mixed signal intensity collection. Collection me asures 4.1 cm craniocaudal x 3.4 cm mediolateral x 2.5 cm anterior posterior. There is resultant mass effect upon the thecal sac. In the associated midline subcutaneous fat, there is a similar signal in tensity lesion measuring 3.3 cm anterior posterior x 5 cm mediolateral x 7.3 cm craniocaudal. On the postcontrast images, both of these collections have peripheral enhancements. There is suggestion of a contiguous tract along the superior aspect of the deeper collection just inferior to the spinous pr ocess at L3. The conus medullaris terminates at the mid L1 level. T12-L1: Adequate disc hydration. No significant central canal stenosis or foraminal narrowing. L1-L2: Adequate disc hydration. No significant central canal stenosis or neural foraminal narrowing. L2-L3: Adequate disc hydration. No significant central canal stenosis or neural foraminal narrowing. L3-L4: Desiccation with mild loss of disc space height. Mild central canal stenosis. Neural foramina are patent. L4-L5: Posterior laminectomy defect. There is moderate central canal stenosis secondary to mixed sign al intensity lesion as described above. Previously noted herniated disc is not evident. Moderate righ t and moderate to severe left neural foraminal narrowing. L5-S1: Desiccation with mild loss of disc space height. There is a stable subarticular disc protrusio n. Disc material abuts and partially obscures the traversing left S1 nerve root. Minimal encroachment upon the right subarticular zone without obscuration traversing the right sS1 nerve root. Mild steno sis of the thecal sac. IMPRESSION: 1. Stable degenerative changes at L5-S1. 2. Interval laminectomy at L4-L5. Previously noted disc herniation is no longer evident. There i s evidence of a complex fluid collection just posterior to the posterior aspect of the thecal sac, at the level of the laminectomy defect. There appears to be a small component that is contiguous with a larger collection in the midline subcutaneous fat. There is peripheral enhancement. Differential con siderations include an infected fluid collection versus postoperative change (seroma vs pseudomeningo gerri). There is moderate central canal stenosis at the L4-L5 level. Neurosurgical consultation is rec ommended. POS: [facility]
[2018-08-29] MEDS ORDERED: Nicotine 21 MG PATCH TOP SCH (20:15)
[2018-08-29] MEDS ORDERED: Thrombin 5000 UNITS/5 ML VIAL ONE (23:37)
[2018-08-29] MEDS ORDERED: Sodium Chloride 0.9% 20 ML ONE (23:37)
[2018-08-30] MEDS ORDERED: Sodium Chloride 0.9% 30 ML ONE (01:00)
[2018-08-30] MEDS ORDERED: Piperacillin/Tazobactam 3.375 GM VIAL ONE (01:00)
[2018-08-30] MEDS ORDERED: Vancomycin HCl 1 GM in Premix Bag 1 BAG IVPB SCH (01:30)
--- NOTE | 2018-08-30 01:33 | HP ---
HISTORY OF PRESENT ILLNESS: Ms. Newton is a 38-year-old female, who had a laminectomy, microdiskectomy by Dr. Leung of the lumbar spine on 08/08. She had significant weakness in the left leg, less so on the right. She was progressing well following surgery and spent some time in rehab and then was seen in the office on . She is not complaining of any headaches, fevers, or chills. When she was seen on the , incision was healing. There was still some scabbing along the incision, but no drainage. No sign of infection at that time, and she was improving. Her strength was improving and her sensation is getting better. She was seen by her PCP earlier today and was sent to the emergency room for some bowel and bladder incontinence. Emergency Department did an ultrasound for her left lower extremity swelling and a lumbar spine MRI. Neurosurgery has been consulted. There is a fluid collection in the postoperative space, L4-5, there is some moderate compression. When I entered the room, the patient was alert and oriented. She is not complaining of any worsening pain. She actually believes that her strength has continued to improve. Bilateral lower extremities, she has more sensation than she did prior to surgery. She denies fever, chills, or headaches. Moving her extremities well. Her incision is closed. There is some scabbing along the incision still, but no drainage. No significant erythema or edema. Pressure surrounding the incision does not elicit any significant pain. She states that approximately 4 days ago, she started having some bladder incontinence when she would sleep. She states that she has control when she is awake, but she would go to sleep and she would wake up with soaked in urine. She states that approximately 2 days ago, she started having some bowel incontinence. If she coughed, she would "poop on herself." She states that she has normal sensation along her saddle area. There is no numbness or tingling. She knows if her bladder is full and she control her bladder when she is awake. She states that more recently, she is unsure if she is having a bowel movement; however, in the ER, she states she knows that she started having a bowel movement, was able to stop the progression going to the restroom and continue her bowel movement. On exam, she has decreased rectal tone, [id number] squeeze, but normal sensation. She has weakness in dorsiflexion bilaterally and EHL bilaterally, significantly worse on the left than the right, and continues to have some decreased sensation on her left leg. This is well improved since prior to surgery. REVIEW OF SYSTEMS: A 10-point review of systems has been completed and is negative other than stated in the above HPI. ALLERGIES: 1. ERYTHROMYCIN. 2. AZITHROMYCIN. 3. OMNICEF. 4. PENICILLINS. 5. TRAMADOL. MEDICATIONS: Not a full list, but 1. Gabapentin. 2. Tylenol #4. 3. Tizanidine. PAST MEDICAL HISTORY: Neuropathy, gastrointestinal disease, gastro reflux disease, contracture to back, hypertension. SURGICAL HISTORY: Appendectomy, tonsillectomy, laminectomy, . SOCIAL HISTORY: The patient denies alcohol use. Is currently a tobacco user. Smokes approximately 1 pack a day. Lives with her spouse and children. PHYSICAL EXAMINATION: VITAL SIGNS: Blood pressure 109/74, heart rate 94, respirations 19, temperature 98.8. Pain 6, and O2 saturations 99% on room air. CONSTITUTIONAL: The patient is alert and oriented. No visible distress. Normotensive and afebrile. HEENT: Head is normocephalic and atraumatic. Pupils are equal, round, and reactive to light. Extraocular movements are intact. Hearing intact. Moist mucous membranes. RESPIRATIONS: Normal work of breathing on room air. Symmetric chest rise. EXTREMITIES: Moving all 4 extremities. Normal range of motion. Upper extremity strength, 5/5 deltoid, biceps, triceps, narcotics agent strength. Lower extremities, 5/5 hip flexion, knee flexion, knee extension; 3+/5 left dorsiflexion, EHL; 4/5 plantar flexion, right; 4/5 dorsiflexion, EHL and 5/5 plantar flexion. Decreased sensation, left compared to right, top of left foot and bilateral lower leg. NEUROLOGIC: The patient is alert and oriented x3. GCS is 15. Normal attention and concentration. Speech spontaneous and fluent. Cranial nerves 2 through 12 are grossly intact. Decreased sensation in left lower extremity and decreased strength in bilateral lower extremity along the L5 distribution. Decreased rectal tone. LABORATORY DATA: Lab work, CRP 7.99, ESR 23, white blood cells 8.3. IMAGING DATA: MRI of the lumbar spine showed changes of L5-S1, interval laminectomy at L4-5, previously noted disk herniation is no longer evident. There is a complex fluid collection just posterior to the posterior aspect of the thecal sac at the level of laminectomy, appears to be small component that is contiguous with a large collection of midline subcutaneous fat and peripheral enhancement. Differential considerations include infectious fluid collection versus postoperative changes, seroma versus moderate canal stenosis at L4-5. Doppler ultrasound is negative for deep vein thrombosis. ASSESSMENT AND PLAN: Ms. Luz Newton is a 38-year-old female, who reported to the Emergency Department with bowel and bladder incontinence. She also did have decreased rectal tone, fluid collection found on MRI at L4-5 with moderate compression of the thecal sac. We recommend to take the patient to surgery to do a washout and revision of her lumbar incision. Please contact the Neurosurgery Department with any questions. Job ID: [id number]
--- NOTE | 2018-08-30 02:16 | PRG ---
DATE OF SERVICE: 08/30/2018 I personally examined the patient in the operating room, reviewed notes and imaging, and I agreed with the documentation of Annamaria Brown PA-C, dated 08/29/2018. Briefly, Luz Newton is almost one month out from a lumbar decompression and diskectomy for a very large disk herniation and cauda equina symptoms. Due to progressive pain and a bout of incontinence, she came to the Emergency Department. MRI examination of the operative site reveal both the superficial and deep fluid collection with a connecting area through the fascia. There was some moderate mass effect. Because I was unaware of Ms. Newton's neurological examination before and after her cauda equina surgery, the documentation of the rectal tone that was decreased and some recent incontinence led me to recommend surgical intervention. We took her emergently from the Emergency Department to the operating room for wound exploration, evacuation of fluid, irrigation and debridement. Job ID: [id number]
[2018-08-30] MEDS ORDERED: diphenhydrAMINE 50 MG/ML VIAL IVP PRN (02:34)
[2018-08-30] MEDS ORDERED: Bisacodyl 10 MG SUPP PR PRN (02:34)
[2018-08-30] MEDS ORDERED: Promethazine 25 MG TAB PO PRN (02:34)
[2018-08-30] MEDS ORDERED: Acetaminophen 325 MG TAB PO PRN (02:34)
[2018-08-30] MEDS ORDERED: Acetaminophen/Codeine 30-300mg Tablet PO PRN (02:34)
[2018-08-30] MEDS ORDERED: Mag-Al 1200 mg/1200 mg/30 ML UDCUP PO PRN (02:34)
[2018-08-30] MEDS ORDERED: diphenhydrAMINE 25 MG CAP PO PRN (02:34)
[2018-08-30] MEDS ORDERED: Milk Of Magnesia 30 ML UDCUP PO PRN (02:34)
[2018-08-30] MEDS ORDERED: Ondansetron PF 4 MG/2 ML Vial IVP PRN (02:34)
[2018-08-30] MEDS ORDERED: Promethazine HCl 25 MG/ML VIAL IM PRN ×2 (02:34→03:05)
[2018-08-30] MEDS ORDERED: Morphine 2 MG/ML SYRINGE SLOW IVP PRN (02:34)
[2018-08-30] MEDS ORDERED: Fentanyl 100 MCG/2 ML VIAL ONE ×5 (02:38→03:46)
[2018-08-30] MEDS ORDERED: Non-Formulary Item 1 EACH (Hydroxyzine Hcl [Hydroxyzine Hcl] 50 MG) PO PRN (02:42)
[2018-08-30] MEDS ORDERED: Midazolam HCl 2 mg/2 ml Vial ONE (02:47)
--- NOTE | 2018-08-30 02:49 | OP ---
DATE OF PROCEDURE: 08/30/2018 MOTOR SETTER: Annamaria Brown PA-C. PREOPERATIVE INDICATION: Prevent neurological deterioration. PREOPERATIVE DIAGNOSES: Status post lumbar decompression and diskectomy with new incontinence and decreased rectal tone with postoperative fluid collection. POSTOPERATIVE DIAGNOSES: Status post lumbar decompression and diskectomy with new incontinence and decreased rectal tone with postoperative fluid collection. OPERATIVE PROCEDURE: Reopening lumbar incision, exploration of wound, evacuation of superficial and deep fluid collections, irrigation, debridement of wound, and repeat wound closure. PREOPERATIVE MEDICATION: (Antibiotics given after cultures) vancomycin 1 g IV, Levaquin 500 mg IV. DRAIN NUMBER: One. DRAIN TYPE: 10-Welsh subfascial drain DESCRIPTION OF PROCEDURE: The patient was brought to the operating room. General endotracheal anesthesia was induced. The patient was positioned prone on the operating table with the chest and hips supported by gel-filled chest rolls. The lumbar skin was sterilely prepped and draped. We opened with a 10 blade knife. Immediately, the superficial fluid collection came out under some pressure. We collected fluid and used a culture swab and sent this to the lab for microbiology. We then carefully removed suture material. We opened the fascia by removing multiple sutures that were keeping it close. Beneath the fascia, there was a separate fluid collection. This was also sampled with a culture swab and an aspiration. Finally, we could visualize the edges of the laminectomy and copious amounts of Gel-Foam. This made me worried about a CSF leak at the original surgery, but multiple Valsalva's were administered, and there was no CSF egress whatsoever. We debrided all the Gel-Foam that we could until there was a tiny, thin layer of it left attached to the lateral recesses without this in place. We used a pulse application technician and 3 L of bacitracin irrigation to irrigate out the wound. We debrided any tissue. We placed a drain beneath the fascia. We treated the wound with vancomycin powder. We closed in anatomical layers. We applied a sterile dressing. This was a type 4 case, contaminated. Please note: The fluid collections both superficial and deep were not dense and purulent. The superficial fluid collection was more transparent and then deeper one more translucent with some yellow tinged fluid. None of this was gabi pus. Job ID: [id number]
[2018-08-30] MEDS ORDERED: HYDROmorphone 2 MG/ML VIAL ONE (02:55)
[2018-08-30] MEDS ORDERED: Meperidine HCl/PF 25 MG/ML VIAL SLOW IVP PRN (03:05)
[2018-08-30] MEDS ORDERED: Ondansetron HCl/PF 4 MG/2 ML Vial IVP PRN (03:05)
[2018-08-30] MEDS ORDERED: HYDROmorphone 2 MG/ML VIAL SLOW IVP PRN (03:05)
[2018-08-30] MEDS ORDERED: Promethazine HCl 25 MG/ML VIAL SLOW IVP PRN (03:05)
[2018-08-30] MEDS ORDERED: Morphine Sulfate 2 MG/ML SYRINGE SLOW IVP PRN (03:05)
[2018-08-30] MEDS ORDERED: PACU-Morphine 4MG/ML VIAL SLOW IVP PRN (03:05)
[2018-08-30] MEDS: Sodium Chloride 0.9% 1,000 ML IV SCH ×2 (04:10→17:25)
[2018-08-30 05:54] VITALS: BMI 27.6
[2018-08-30] MEDS: Acetaminophen/Codeine 30-300mg Tablet PO PRN ×5 (06:26→21:06)
[2018-08-30] MEDS: Venlafaxine HCl XR 75 MG CAP PO SCH (09:39)
[2018-08-30] MEDS: Gabapentin 300 MG CAP PO SCH ×3 (09:40→20:13)
[2018-08-30] MEDS: OXcarbazepine 150 MG TAB PO SCH ×2 (09:41→20:13)
--- NOTE | 2018-08-30 09:54 | PRG ---
DATE OF SERVICE: 08/30/2018 Ms. Newton was readmitted by our on-call team last night as she presented to the ER with concerns of Valsalva-related incontinence. She had significant stenosis preoperatively and has done well even with most recent evaluation when we saw her at her postoperative visit just this past week in clinic. We did her surgery, which was a lumbar decompression diskectomy on August 08. She had preoperative left footdrop and this has remained postoperative, although she has been ambulating with cane recently having graduated from a walker and her wound had been healing well. Nevertheless, given the incontinence, she presented to the emergency room. Review of her labs demonstrate a hemoglobin of 8.7, consistent with chronic anemia with an essentially normal ESR of 23, the high ranges 20 but this is fairly unremarkable. Her CRP was elevated at 7.99 not unusual given her recent surgery and I should note that her white blood cell count was normal at 8.3. She had been afebrile as well. An ultrasound was performed, which was negative in the left lower extremity and an MRI was performed of the lumbar spine, which is always somewhat dubious in regard to its findings this early from surgery, The MRI demonstrates a fluid collection both above the fascia and below the fascia compared to preoperatively and no worrisome severe stenosis but certainly mild to moderate, obviously preoperatively she had severe. There was concern of infection and as such, wound washout was performed and we are awaiting cultures. She is on vancomycin and Levaquin. Other than back soreness, she states she feels good. Her EDILIA drain has only put out 5 mL as recorded. We will continue to watch her today. Check postoperative labs. We will watch her bowel and bladder issue, although at any time a patient has a history of severe stenosis essentially cauda equina syndrome like she had prior to our initial surgery, she is at high risk for it again even in the absence of structural pathology as nerve roots heal. We will await the cultures again and follow her. She may mobilize as tolerated at this point. Job ID: [id number] MTDD
[2018-08-30 11:05] LABS: #Eosinphils 0.2 thou/uL (0.0-0.7); #Monocytes 0.6 thou/uL (0.11-0.59); #Neutrophils 4.9 thou/uL (1.40-6.50); %Basophils 0.2 % (0.0-1.0); %Eosinophils 3.1 % (0.0-10.0); %Lymphocytes 25.9 % (21.0-51.0); %Monocytes 7.9 % (0.0-10.0); %Neutrophils 62.8 % (42.0-75.0); Hemoglobin 8.4 g/dL (12.0-16.0); Mean Corpuscular HGB CONC 32.1 g/dL (32.0-36.0); Mean Corpuscular Hemoglobin 27.4 pg (27.0-31.0); Mean Corpuscular Volume 85.2 fL (78.0-98.0); Mean Platelet Volume 7.6 fL (7.4-10.4); Platelet Count 356 thou/uL (130-400); RBC Distribution Width 14.6 % (11.5-14.5); Red Blood Cell (RBC) Count 3.07 mill/uL (4.20-5.40); White Blood Cell (WBC) Count 7.7 thou/uL (4.8-10.8)
[2018-08-30 11:35] LABS: Anion Gap 10 mmol/L (10-20); BUN (Urea Nitrogen) 13 mg/dL (7.0-18.7); Calc. Creatinine Clearance 141 mL/min (70-130); Calcium 8.8 mg/dL (7.8-10.44); Carbon Dioxide 19 mmol/L (22-29); Chloride 114 mmol/L (98-107); Estimated GFR-MDRD Greater than 90; Glucose 79 mg/dL (70-105); Potassium 3.3 mmol/L (3.5-5.1); Sodium 140 mmol/L (136-145)
[2018-08-30] MEDS: Morphine 4 MG/ML VIAL SLOW IVP PRN ×2 (15:00→21:59)
[2018-08-30] MEDS: Vancomycin HCl 1 GM in Premix Bag 1 BAG IVPB SCH (15:01)
[2018-08-30] MEDS ORDERED: Succinylcholine Chloride 20 MG/ML 10 ml SYRINGE FS ONE (16:10)
[2018-08-30] MEDS ORDERED: PHENYLEPHRINE-NS 100 MCG/ML 10 ML SYRINGE ONE (16:10)
[2018-08-30] MEDS ORDERED: Lidocaine 1% PF 5 ML VIAL ONE (16:10)
[2018-08-30] MEDS ORDERED: Rocuronium Bromide 10 MG/ML (10ML VIAL) ONE (16:10)
[2018-08-30] MEDS ORDERED: Ketorolac Tromethamine 30 MG/ML VIAL ONE (16:10)
[2018-08-30] MEDS ORDERED: PROPOFOL 200 MG/20 ML VIAL ONE (16:10)
[2018-08-30] MEDS ORDERED: Glycopyrrolate 0.2 MG/ML 5 ML SYRINGE ONE (16:10)
[2018-08-30] MEDS ORDERED: Ondansetron PF 4 MG/2 ML Vial ONE (16:10)
[2018-08-30] MEDS ORDERED: Lidocaine 2% PF 100 mg/5 ml Syringe ONE (16:10)
[2018-08-31] MEDS: Acetaminophen/Codeine 30-300mg Tablet PO PRN ×7 (02:14→23:56)
[2018-08-31] MEDS: Vancomycin HCl 1 GM in Premix Bag 1 BAG IVPB SCH ×2 (02:16→14:35)
[2018-08-31] MEDS: Sodium Chloride 0.9% 1,000 ML IV SCH ×2 (06:40→18:43)
[2018-08-31] MEDS: Gabapentin 300 MG CAP PO SCH ×3 (09:13→20:26)
[2018-08-31] MEDS: OXcarbazepine 150 MG TAB PO SCH ×2 (09:13→20:26)
[2018-08-31] MEDS: Venlafaxine HCl XR 75 MG CAP PO SCH (09:13)
--- NOTE | 2018-08-31 09:57 | PRG ---
DATE OF SERVICE: 08/31/2018 Ms. Newton is postoperative day 2 following lumbar wound washout, intraoperative cultures and debridement and re-closure. She has been afebrile. Her white blood cell count has been normal. She had mild elevation of her CRP preoperatively. Her ESR was essentially normal at 23. However, she had, had new onset of urinary issues and there was concern of infection in compression of the thecal sac. This morning, she states she is feeling better than yesterday. She again has been afebrile. Her vital signs have been stable hemodynamically. Her drain output has been minimal. Review of her 5 intraoperative cultures demonstrate rare growth of Staphylococcus, which may be a contaminant given no growth at 24 hours in the other 4 specimens. She is on prophylactic antibiotics at this time consistent with Levaquin and vancomycin. I should note there was rare contamination of her urine analysis as well with bacterial growth. She feels as if her urinary incontinence is markedly improved this morning, but I would like to do is make sure the cultures mature today. They should be matured at 48 hours by this evening. Should she develop any clear growth, we will send her out on tailored specific antibiotics based on the growth. Should it be just the rare Staphylococcus we are seeing, it is likely contaminant and we will send her home with likely just prophylactic antibiotics for shorter course. Job ID: [id number]
[2018-08-31] MEDS: tiZANidine HCl 4 MG TAB PO PRN ×2 (14:36→22:02)
--- NOTE | 2018-08-31 20:11 | CON ---
DATE OF CONSULTATION: 08/31/2018 REASON FOR CONSULTATION: Fluid collections following laminectomy with cauda equina syndrome. HISTORY OF PRESENT ILLNESS: A 38-year-old, who has a history of prior UTIs, bipolar disorder, and prior heroin use in remission, who had chronic low back pain and underwent laminectomy with Dr. Leung on August 08. She went to rehab and was not having any obvious problems with normal-appearing incision site. Subsequently, she developed bladder and bowel incontinence, also swelling of the left lower extremity. Duplex ultrasound did not show any evidence of deep vein thrombosis. Lumbar spine MRI demonstrated a fluid collection in the postop space of L4-L5 with moderate compression. She was moving her extremities well and had not any fever and the incision looked well without drainage or erythema. The patient had exploration of the area by Dr. Poole. There was a superficial fluid collection, which came under some pressure. This was sent for microbiology evaluation. The fascia was opened and beneath the fascia, there was a separate fluid collection, which was sampled. No CSF egress was identified. The drain was left beneath the fascia and the wound was closed. Currently, Ms. Newton is feeling well. She has minimal pain at the site. No headaches, visual symptoms, sore throat, odynophagia, or dysphagia. No cough or sputum production. No chest pain. No dyspnea. No abdominal pain. She is voiding in the toilet and does not have any difficulty. She has had bowel movements. Good strength in lower extremities and sensation as well. PAST MEDICAL HISTORY: Include prior heroin use, which is in remission. Neuropathy, gastrointestinal reflux disease, hypertension, back pain with spinal stenosis and laminectomy, and . SOCIAL HISTORY: Current smoker. Prior use of heroin reported. ALLERGIES: AZITHROMYCIN, OMNICEF, PENICILLIN, TRAMADOL, AND ERYTHROMYCINS. MEDICATIONS: 1. Gabapentin. 2. Currently, she is on Tylenol 3. 3. Benadryl. 4. Levofloxacin. 5. Vancomycin. FAMILY HISTORY: Noncontributory. PHYSICAL EXAMINATION: VITAL SIGNS: T-max has been normal. BP 115/72, pulse 94, respirations 18, and O2 saturation 97. SKIN: Shows the operative site with stitches. No erythema. No drainage noted. She still has a drain in place. It is a EDILIA drain with serosanguineous fluid inside and small amount. Peripheral IV access. No lymphadenopathy. HEENT: Ocular movements conjugate. Oral cavity normal. NECK: Supple. LUNGS: Symmetric clear breath sounds. HEART: S1 and S2. Regular rate. ABDOMEN: Soft, not distended or tender. : No bladder distention. EXTREMITIES: Moves extremities equally. NEUROLOGIC: Cognitive function appears to be intact. LABORATORY DATA: White cell count 8.3, hemoglobin 8.7, MCV 86, platelets 362 with normal differential. Sodium 141 and creatinine 0.82. Liver profile normal. Mildly decreased albumin actually. Urinalysis with unremarkable findings. Microbiology, we have five samples of which we have one with Staphylococcus species in rare amounts. This is a lumbar swab, #4. The Gram stain in the first sample showed no organisms seen. In the second sample, moderate gram-positive cocci in clusters. In the third sample, no organisms seen and the final fifth sample with no organisms seen. We have a lumbar spine MRI done on admission, which demonstrated laminectomy L4-L5, complex fluid collection posterior to the posterior aspect of the thecal sac, small component is contiguous with a larger collection in the midline, subcutaneous fat with peripheral enhancement. ASSESSMENT AND PLAN: Chronic smoking with prior use of heroin with chronic low back pain and a recent laminectomy with postop fluid development with cauda equina symptoms, status post revision of the site in view of the MRI findings and a clinical symptoms. The patient has a gram-positive cocci seen in one of this Gram stain samples and there is growth of Staphylococcus species in another sample. If it is confirmed, then we will have to give her treatment with intravenous medication either vancomycin or linezolid. If only one sample is positive, then we can consider oral antimicrobial therapy with the regimen to be chosen according to results of the final susceptibility studies. She has had prior hepatitis and HIV serologies, which were negative. Job ID: [id number]
[2018-09-01] MEDS: Acetaminophen/Codeine 30-300mg Tablet PO PRN ×4 (03:02→12:43)
[2018-09-01] MEDS: Vancomycin HCl 1 GM in Premix Bag 1 BAG IVPB SCH (03:03)
[2018-09-01] MEDS: Sodium Chloride 0.9% 1,000 ML IV SCH (07:29)
[2018-09-01] MEDS: Gabapentin 300 MG CAP PO SCH (09:10)
[2018-09-01] MEDS: Venlafaxine HCl XR 75 MG CAP PO SCH (09:10)
[2018-09-01] MEDS: OXcarbazepine 150 MG TAB PO SCH (09:10)
[2018-09-01 11:17] VITALS: BP 121/82; TEMP 98.2
--- NOTE | 2018-09-01 15:07 | DIS ---
DATE OF ADMISSION: 08/30/2018 DATE OF DISCHARGE: 09/01/2018 DISCHARGE DIAGNOSES: 1. Postoperative seroma collection. 2. Chronic left lower extremity weakness with left footdrop. 3. Bowel and bladder dysfunction. HOSPITAL COURSE: Ms. Newton was admitted by Dr. Poole and underwent a lumbar wound revision with postoperative seroma evacuation for some bowel and bladder dysfunction. The patient originally underwent lumbar spine surgery including a very large L4-L5 diskectomy with Dr. Leung around 3 weeks ago. At the time of her 1st surgery, and even during her 2-1/2 to 3-week wound check, the patient was doing very well in regard to improved strength and sensation and overall functioning postoperatively. She had no drainage from her incision and it was healing well. The patient presented with a roughly 4-day course of nightly urinary incontinence and some stool leakage over the past 2 days, and an MRI was obtained that showed a postoperative seroma collection. Cultures were obtained intraoperatively as Dr. Poole took the patient to evacuate the seroma. There was found to be coagulase-negative Staphylococcus which may have been a contaminant as there has been no other growth of the cultures 48 hours later. Nonetheless, as per the instruction of Infectious Disease, the patient was discharged on doxycycline 100 mg b.i.d. In regard to the patient's bowel and bladder function, these have significantly improved postoperatively. The patient was continuing to use a left AFO, but was ambulating. At the time of discharge, she also had improved sensation into the left lower extremity and stable weakness in dorsiflexion and plantar flexion, but otherwise the patient was doing very well postoperatively. Again, appropriate prescriptions, outpatient followup, and patient education was provided to the patient, and Dr. Leung's team will follow up with the patient during her wound check. The patient again understood to call the office with questions or concerns, but she was discharged and doing well postoperatively. Job ID: [id number]
== END 2018-09-01 13:30 | disposition home or self-care (01) | DRG 908 ==
LOC: ERS 13:26 → SDC/OP 08-30 00:40 → SURG A 08-30 02:58
PROVIDERS: ADMIT Neurological Surgery; ATTEND Neurological Surgery
PROC: 0JD70ZZ Extraction of Back Subcutaneous Tissue and Fascia, Open Approach (ICD-10-PCS; principal; 2018-08-30)
DX: G97.63 Postprocedural seroma of a nervous system organ or structure following a nervous system procedure (principal); G95.29 Other cord compression; M21.372 Foot drop, left foot; N31.9 Neuromuscular dysfunction of bladder, unspecified; K21.9 Gastro-esophageal reflux disease without esophagitis; I10 Essential (primary) hypertension; G62.9 Polyneuropathy, unspecified; F17.210 Nicotine dependence, cigarettes, uncomplicated; D64.9 Anemia, unspecified; Y83.8 Other surgical procedures as the cause of abnormal reaction of the patient, or of later complication, without mention of misadventure at the time of the procedure; R32 Unspecified urinary incontinence; Z88.1 Allergy status to other antibiotic agents; Z88.0 Allergy status to penicillin; Z88.8 Allergy status to other drugs, medicaments and biological substances; Z90.49 Acquired absence of other specified parts of digestive tract
CPT/HCPCS: 36415; 72158; 80048; 80053; 81003; 81015; 85025; 85652; 86140; 87070; 87186; 87205; J1170; J1885; J1956; J2001; J2250; J2270; J2405; J2543; J2704; J3010; J3370; J3490; Q0163

== ENCOUNTER 2018-10-25 16:44 | Emergency (ER) | payer OTHER ==
[2018-10-25 17:16] LABS: Bilirubin Negative (Negative); Blood, Urine Trace (Negative); Glucose, Urine (Dipstick) Negative (Negative); Leukocyte Moderate (Negative); Nitrite Positive (Negative); Protein, Urine (Dipstick) 30 mg/dL (Neg-Trace); Urobilinogen 0.2 mg/dL (Less than 2)
[2018-10-25 17:21] LABS: Clarity Cloudy (Clear)
[2018-10-25 17:22] LABS: Bacteria/HPF 4+ HPF (None Seen); RBC/HPF 0-3 HPF (0-3)
== END 2018-10-25 17:31 | disposition home or self-care (01) ==
LOC: SCSER 16:44
DX: N39.0 Urinary tract infection, site not specified (principal); K21.9 Gastro-esophageal reflux disease without esophagitis; I10 Essential (primary) hypertension; F41.9 Anxiety disorder, unspecified; F31.9 Bipolar disorder, unspecified; F17.210 Nicotine dependence, cigarettes, uncomplicated; Z79.891 Long term (current) use of opiate analgesic; Z79.899 Other long term (current) drug therapy
CPT/HCPCS: 81003; 81015; 99283

== ENCOUNTER 2018-10-26 09:36 | Day surgery (SDC) | payer OTHER ==
[2018-10-25 11:32] VITALS: BMI 27.0
[2018-10-26] MEDS ORDERED: Dexamethasone 20 MG/5 ML VIAL ONE (10:36)
[2018-10-26] MEDS ORDERED: diphenhydrAMINE 50 MG/ML VIAL ONE (10:36)
[2018-10-26] MEDS ORDERED: Glycopyrrolate 0.2 MG/ML 5 ML SYRINGE ONE (10:36)
[2018-10-26] MEDS ORDERED: Ketorolac Tromethamine 30 MG/ML VIAL ONE (10:36)
[2018-10-26] MEDS ORDERED: PROPOFOL 200 MG/20 ML VIAL ONE (10:36)
[2018-10-26] MEDS ORDERED: Ondansetron PF 4 MG/2 ML Vial ONE ×2 (10:36→13:26)
[2018-10-26] MEDS ORDERED: Rocuronium Bromide 10 MG/ML (10ML VIAL) ONE (10:36)
[2018-10-26] MEDS ORDERED: Lidocaine 2% PF 5 ML VIAL ONE (10:36)
[2018-10-26] MEDS ORDERED: Fentanyl 100 MCG/2 ML VIAL ONE ×3 (11:03→13:49)
[2018-10-26] MEDS ORDERED: Midazolam HCl 2 mg/2 ml Vial ONE (11:47)
[2018-10-26] MEDS ORDERED: Bupivacaine PF 0.5% 30 ML VIAL ONE (12:39)
--- NOTE | 2018-10-26 13:10 | RAD ---
RIGHT ANKLE 3 VIEWS: HISTORY: ORIF right ankle FINDINGS: 3 spot fluoroscopic intraoperative images of the right ankle demonstrate changes of internal fixation of distal fibula with plate and screws. The ankle mortise is maintained.
[2018-10-26] MEDS ORDERED: Promethazine HCl 25 MG/ML VIAL ONE (13:52)
--- NOTE | 2018-10-27 11:59 | OP ---
DATE OF PROCEDURE: 10/26/2018 PREOPERATIVE DIAGNOSIS: Right lateral malleolus fracture. POSTOPERATIVE DIAGNOSIS: Right lateral malleolus fracture. PROCEDURES PERFORMED: Open reduction and internal fixation of right lateral malleolus. ANESTHESIA: General. SENIOR CLINICAL STUDY MANAGER: Albino Tadeo PA-C TOURNIQUET TIME: 36 minutes at 300 mmHg. IMPLANTS: Synthes 7-hole 1/3rd tubular plate. COMPLICATIONS: None. DRAINS: None. SPECIMEN: None. OUTCOME: Near-anatomic alignment of the fracture. INDICATIONS FOR PROCEDURE: The patient is a 38-year-old lady status post twisting injury right ankle sustaining a lateral malleolus fracture with just some minimal widening of the mortise. After discussion with the patient including risks and benefits, we decided to proceed with open reduction and internal fixation of this mildly displaced lateral malleolus to aid with mobility and healing. Informed consent has been obtained. Risks and benefits have been discussed with the patient. Risks include, but are not limited to bleeding, infection, nerve injury, DVT, PE, malunion, nonunion, loss of limb or life. The patient appears to understand, does wish to proceed. DESCRIPTION OF PROCEDURE: The patient was brought to the operating room and a time-out performed followed by induction of general anesthesia. Next, a sterile prep and drape were performed of the right lower extremity. The limb was then exsanguinated with Esmarch bandage, tourniquet inflated to 300 mmHg. A vertical incision was made following the path of the distal fibula. After skin was sharply incised, dissection was carried down bluntly exposing the lateral cortex of the distal fibula. Next, the fracture hematoma was lavaged from the wound. A curette was also used to remove some of the hematoma. Soft tissue was removed from the fracture gap and then the fracture was reduced and held in place with a bone tenaculum. Next, an anterior to posterior interfragmentary screw was applied in standard fashion, getting good compression across the fracture gap in anatomic reduction. Next, a 7-hole 1/3rd tubular plate was contoured to fit the lateral aspect of the distal fibula. Once done, this was affixed to the bone with 3 cortical screws proximal and 3 cancellous screws distal to the fracture line. At the completion of this, AP, lateral, and mortise x-rays of the ankle were obtained that showed anatomic alignment. The wound was then irrigated with bulb syringe and closed in layers with 0 Vicryl, deep 2-0 Vicryl subcutaneously, and nano for the skin. Xeroform gauze, Webril, and fiberglass splint was applied to the ankle and the patient was transferred to recovery room in stable condition. There were no complications. The patient tolerated the procedure well. Job ID: [id number]
== END 2018-10-26 15:45 | disposition home or self-care (01) ==
LOC: SDC 09:36
PROVIDERS: ATTEND Orthopaedic Surgery
PROC: 0QSJ04Z Reposition Right Fibula with Internal Fixation Device, Open Approach (ICD-10-PCS; principal; 2018-10-26)
DX: S82.61XA Displaced fracture of lateral malleolus of right fibula, initial encounter for closed fracture (principal); F41.9 Anxiety disorder, unspecified; F32.9 Major depressive disorder, single episode, unspecified; Z79.899 Other long term (current) drug therapy; Z87.891 Personal history of nicotine dependence; Z88.0 Allergy status to penicillin; Z88.1 Allergy status to other antibiotic agents; Z88.5 Allergy status to narcotic agent; Z88.8 Allergy status to other drugs, medicaments and biological substances
CPT/HCPCS: 76000; C1713; J0131; J0690; J1100; J1200; J1885; J2001; J2250; J2405; J2550; J2704; J3010; S0020

== ENCOUNTER 2018-10-31 20:00 | Emergency (ER) | payer OTHER | END 2018-10-31 21:23 | disposition home or self-care (01) | LOC: ERS 20:00 | DX: Z46.89 Encounter for fitting and adjustment of other specified devices (principal); G90.09 Other idiopathic peripheral autonomic neuropathy; K21.9 Gastro-esophageal reflux disease without esophagitis; I10 Essential (primary) hypertension; F41.9 Anxiety disorder, unspecified; F31.9 Bipolar disorder, unspecified; F17.210 Nicotine dependence, cigarettes, uncomplicated | CPT/HCPCS: 99282 ==

== ENCOUNTER 2018-11-20 12:25 | Outpatient (CLI) | payer OTHER ==
--- NOTE | 2018-11-20 14:10 | RAD ---
EXAM: 3 views of the lumbosacral spine HISTORY: Low back pain; bladder incontinence COMPARISON: 05/08/2007 FINDINGS: 3 views of the lumbosacral spine shows normal height and alignment of the vertebral bodies without fracture or subluxation. The patient has had laminectomies at L4 and L5. L4/5 intervertebral disc is narrowed. The sacroiliac joints are unremarkable. IMPRESSION: Interval narrowing of the L4/5 disc space and laminectomies
--- NOTE | 2018-11-20 14:17 | MRI ---
EXAM: MRI lumbar spine without and with contrast HISTORY: Bladder incontinence. History of lumbar surgery in July and August 2018 COMPARISON: 08/29/2018 TECHNIQUE: Multiple planar multisequence MR images were obtained of the lumbar spine without and with contrast. FINDINGS: The vertebral bodies demonstrate normal height and alignment without fracture or subluxation. There is decreased size of the subcutaneous paraspinal fluid collection when compared to the prior ex am. This still measures approximately 8.2 cm in length but is only 1.1 cm in diameter. The deeper fluid collection in the surgical bed of the laminectomies still measures 4.6 cm in length but has dec reased in width measuring 0.4 cm in diameter. No marrow signal abnormality is present. The conus medullaris terminates normally at T12/L1. T12/L1: No significant posterior bulge or protrusion. No posterior facet arthrosis. No central kalpesh l stenosis. No neural foraminal stenosis L1/2: No significant posterior bulge or protrusion. No posterior facet arthrosis. No central canal stenosis. No neural foraminal stenosis L2/3: No significant posterior bulge or protrusion. No posterior facet arthrosis. No central canal stenosis. No neural foraminal stenosis L3/4: No significant posterior bulge or protrusion. No posterior facet arthrosis. No central canal stenosis. No neural foraminal stenosis L4/5: A moderate protrusion is seen which is worse than the prior examination extending into the cent ral canal proximal to 1.0 cm and extending towards the left neural foramen. No posterior facet arthrosis. Moderate central canal stenosis. Moderate left and mild right neural foraminal stenosis L5/S1: A moderate generalized concentric disc bulge is seen. No posterior facet arthrosis. Mild delmi tral canal stenosis. Moderate bilateral neural foraminal stenosis IMPRESSION: Degenerative changes of the lumbar spine as above. When compared with the prior examination, there is a worsening of a protrusion at L4/5.
== END 2018-11-20 12:26 | disposition home or self-care (01) ==
LOC: SCSMRI 12:25
PROVIDERS: ATTEND Surgery
DX: M51.16 Intervertebral disc disorders with radiculopathy, lumbar region (principal); M51.06 Intervertebral disc disorders with myelopathy, lumbar region; M54.5 Low back pain; M47.26 Other spondylosis with radiculopathy, lumbar region; M48.061 Spinal stenosis, lumbar region without neurogenic claudication; Z98.890 Other specified postprocedural states
CPT/HCPCS: 72100; 72158; A9577

== ENCOUNTER 2019-01-19 08:33 | Day surgery (SDC) | payer OTHER ==
[2019-01-19 09:21] LABS: #Basophils 0.1 thou/uL (0.0-0.2); #Eosinphils 0.2 thou/uL (0.0-0.7); #Lymphocytes 2.2 thou/uL (1.20-3.40); #Monocytes 0.3 thou/uL (0.11-0.59); #Neutrophils 4.5 thou/uL (1.40-6.50); %Basophils 0.8 % (0.0-1.0); %Eosinophils 3.3 % (0.0-10.0); %Lymphocytes 30.3 % (21.0-51.0); %Monocytes 4.5 % (0.0-10.0); %Neutrophils 61.1 % (42.0-75.0); Hemoglobin 13.3 g/dL (12.0-16.0); Mean Corpuscular HGB CONC 32.1 g/dL (32.0-36.0); Mean Corpuscular Volume 90.5 fL (78.0-98.0); Mean Platelet Volume 7.3 fL (7.4-10.4); Platelet Count 406 thou/uL (130-400); RBC Distribution Width 14.6 % (11.5-14.5); White Blood Cell (WBC) Count 7.4 thou/uL (4.8-10.8)
[2019-01-19 09:27] LABS: PTT 27.1 SEC (22.9-36.1)
[2019-01-19] MEDS ORDERED: Clindamycin/D5W 900 mg/50 ml Premix Bag ONE (09:31)
[2019-01-19] MEDS ORDERED: Levofloxacin 500 mg/D5W 100 ml Premix Bag ONE (09:32)
[2019-01-19 09:38] LABS: Anion Gap 12 mmol/L (10-20); BUN (Urea Nitrogen) 13 mg/dL (7.0-18.7); Calc. Creatinine Clearance 125 mL/min (70-130); Calcium 9.3 mg/dL (7.8-10.44); Carbon Dioxide 15 mmol/L (22-29); Chloride 112 mmol/L (98-107); Estimated GFR-MDRD 80; Glucose 94 mg/dL (70-105); Potassium 4.7 mmol/L (3.5-5.1); Sodium 134 mmol/L (136-145)
[2019-01-19] MEDS ORDERED: Thrombin 5000 UNITS/5 ML VIAL ONE (09:57)
[2019-01-19] MEDS ORDERED: Sodium Chloride 0.9% 10 ML ONE (09:57)
[2019-01-19] MEDS ORDERED: Bacitracin Zinc Ointment 30 gm TUBE ONE (09:57)
[2019-01-19] MEDS ORDERED: PHENYLEPHRINE-NS 100 MCG/ML 10 ML SYRINGE ONE (10:40)
[2019-01-19] MEDS ORDERED: Glycopyrrolate 0.2 MG/ML 5 ML SYRINGE ONE (10:40)
[2019-01-19] MEDS ORDERED: PROPOFOL 200 MG/20 ML VIAL ONE (10:40)
[2019-01-19] MEDS ORDERED: Ondansetron PF 4 MG/2 ML Vial ONE (10:40)
[2019-01-19] MEDS ORDERED: Dexamethasone 20 MG/5 ML VIAL ONE (10:40)
[2019-01-19] MEDS ORDERED: Rocuronium Bromide 10 MG/ML (10ML VIAL) ONE (10:40)
[2019-01-19] MEDS ORDERED: Midazolam HCl 2 mg/2 ml Vial ONE (11:34)
[2019-01-19] MEDS ORDERED: Fentanyl 250 MCG/5 ML VIAL ONE (11:34)
[2019-01-19] MEDS ORDERED: Rocuronium Bromide 50 MG/5 ML VIAL ONE (13:16)
[2019-01-19] MEDS ORDERED: Fentanyl 100 MCG/2 ML VIAL ONE (14:15)
--- NOTE | 2019-01-19 14:52 | OP ---
DATE OF PROCEDURE: 01/19/2019 LOCATION: OR 5. ASSISTANT WOMEN'S TENNIS COACH: René Laird PA-C PREPROCEDURE DIAGNOSES: Low back and leg pain with history of cauda equina syndrome now with recurrent lumbar disk extrusion L4-L5 with left greater than right lower extremity pain and weakness. POSTPROCEDURE DIAGNOSES: Low back and leg pain with history of cauda equina syndrome now with recurrent lumbar disk extrusion L4-L5 with left greater than right lower extremity pain and weakness. PROCEDURES PERFORMED: 1. Bilateral L4-L5 revision hemilaminotomy, foraminotomy, and diskectomy, L4-L5. 2. Use of operative microscope for microdissection. 3. A modifier should be added to this surgery as it was a bilateral surgery. DESCRIPTION OF PROCEDURE: After informed consent was obtained from the patient, the patient was brought to the OR. Proper patient, pause, and identification were carried out. She was placed in excellent general endotracheal anesthesia and positioned prone on the OR table. All appropriate points were padded. We identified the prior L4-L5 wound and this region was sterilely cleansed, prepared, and draped. Proper patient, pause, and identification were again carried out. The wound was then opened with combination of sharp, monopolar, and blunt dissection. The L4-L5 bilateral hemilaminotomy regions were identified and localization film confirmed our area of interest. We then performed L4-L5 revision bilateral hemilaminotomy, foraminotomy, and diskectomy with excellent decompression of common dural tube and the nerve roots. We worked on the disk from both sides as there was large disk extrusion present on both. We had excellent decompression of the exiting left L4 and traversing left L5 nerve roots. Copious irrigation then occurred. Wound was closed in anatomic layers following sprinkling of vancomycin powder. The patient emerged from anesthesia. Job ID: [id number]
[2019-01-19] MEDS ORDERED: HYDROmorphone 2 MG/ML VIAL ONE (15:01)
[2019-01-19] MEDS ORDERED: Fleet Enema 133 ML BOT PR PRN (15:12)
[2019-01-19] MEDS ORDERED: Milk Of Magnesia 30 ML UDCUP PO PRN (15:12)
[2019-01-19] MEDS ORDERED: Bisacodyl 10 MG SUPP PR PRN (15:12)
[2019-01-19] MEDS ORDERED: Mag-Al 1200 mg/1200 mg/30 ML UDCUP PO PRN (15:12)
[2019-01-19] MEDS ORDERED: Morphine 2 MG/ML SYRINGE SLOW IVP PRN ×2 (15:12→17:13)
[2019-01-19] MEDS ORDERED: Ondansetron PF 4 MG/2 ML Vial IVP PRN ×2 (15:12→15:17)
[2019-01-19] MEDS ORDERED: Acetaminophen 325 MG TAB PO PRN (15:12)
[2019-01-19] MEDS ORDERED: HYDROcodone/Acetaminophen 7.5/325 mg Tablet PO PRN (15:12)
[2019-01-19] MEDS ORDERED: Zolpidem Tartrate 5 MG TAB PO PRN (15:17)
[2019-01-19] MEDS ORDERED: Meperidine HCl/PF 25 MG/ML VIAL SLOW IVP PRN (15:17)
[2019-01-19] MEDS ORDERED: diphenhydrAMINE 50 MG/ML VIAL IVP PRN (15:17)
[2019-01-19] MEDS ORDERED: HYDROmorphone 10 mg/100 ml CADD IVPB PRN (15:17)
[2019-01-19] MEDS ORDERED: Naloxone HCl 0.4 mg/ml Vial IV PRN (15:17)
[2019-01-19] MEDS ORDERED: Promethazine HCl 25 MG/ML VIAL IM PRN ×2 (15:17)
[2019-01-19] MEDS ORDERED: Promethazine HCl 25 MG/ML VIAL SLOW IVP PRN (15:17)
[2019-01-19] MEDS ORDERED: diphenhydrAMINE 50 MG/ML VIAL IM PRN (15:17)
[2019-01-19] MEDS ORDERED: HYDROmorphone 2 MG/ML VIAL SLOW IVP PRN (15:17)
[2019-01-19] MEDS ORDERED: PACU-Morphine 4MG/ML VIAL SLOW IVP PRN (15:17)
[2019-01-19] MEDS ORDERED: diphenhydrAMINE 25 MG CAP PO PRN (15:17)
[2019-01-19] MEDS ORDERED: Ondansetron HCl/PF 4 MG/2 ML Vial IVP PRN (15:17)
[2019-01-19] MEDS ORDERED: Morphine 4 MG/ML VIAL ONE (15:25)
[2019-01-19] MEDS ORDERED: Communication Order-Pharmacy FS SCH (15:30)
[2019-01-19] MEDS ORDERED: HYDROmorphone 0.5 MG/0.5 ML SYRINGE ONE ×2 (15:48→16:15)
[2019-01-19] MEDS ORDERED: Promethazine HCl 25 MG/ML VIAL ONE (16:02)
[2019-01-19] MEDS ORDERED: hydrOXYzine 25 MG TAB PO PRN (17:20)
[2019-01-19] MEDS: Clindamycin/D5W 900 MG in Premix Bag 1 BAG IVPB SCH (17:44)
[2019-01-19] MEDS: Sodium Chloride 0.9% 1,000 ML IV SCH (17:44)
[2019-01-19 17:51] VITALS: BMI 27.0
[2019-01-19] MEDS: Gabapentin 300 MG CAP PO SCH (20:56)
[2019-01-19] MEDS: OXcarbazepine 150 MG TAB PO SCH (20:57)
[2019-01-19] MEDS ORDERED: ZALEPLON 5 MG PO SCH (21:00)
[2019-01-19] MEDS ORDERED: LURASIDONE 40 MG PO SCH (21:00)
[2019-01-19] MEDS ORDERED: Gabapentin 300 MG CAP PO SCH (21:00)
[2019-01-20] MEDS: Clindamycin/D5W 900 MG in Premix Bag 1 BAG IVPB SCH ×2 (01:36→09:13)
[2019-01-20 03:27] VITALS: TEMP 97.9
[2019-01-20] MEDS: tiZANidine HCl 4 MG TAB PO PRN ×2 (03:50→12:16)
[2019-01-20] MEDS: Sodium Chloride 0.9% 1,000 ML IV SCH (05:07)
--- NOTE | 2019-01-20 08:29 | PRG ---
DATE OF SERVICE: 01/20/2019 Ms. Newton is 1 day out from revision microdiskectomy bilaterally at L4-5. She tells me this hospitalization for spine surgery is a bit more painful than the 2 prior for her. She has required a [employer] for pain control and due to the amount of medication she is taking, she had a bit of urinary retention. Both the vitals signs and neurological exam are stable Ms. Newton will continue to mobilize today. If we can get her off the [employer] onto oral pain medications to control her discomfort and she is safe for activities of daily living, controlling her bladder well, then she can be discharged. She hopes that is today, but she understands it may be tomorrow. Job ID: [id number] MTDD
[2019-01-20] MEDS ORDERED: Acetaminophen/Codeine 30-300mg Tablet PO PRN ×2 (08:42→15:25)
[2019-01-20] MEDS ORDERED: Tamsulosin HCl 0.4 MG CAP PO SCH (08:45)
[2019-01-20] MEDS ORDERED: Venlafaxine HCl XR 150 MG CAP PO SCH (09:00)
[2019-01-20] MEDS ORDERED: FLU VACC QS2019-20(6MOS UP)/PF 60 MCG/0.5 ML SYRINGE IM ONE (09:00)
[2019-01-20] MEDS ORDERED: Meloxicam 15 MG TAB PO SCH (09:00)
[2019-01-20] MEDS ORDERED: Venlafaxine XR 37.5 MG CAP PO SCH (09:00)
[2019-01-20] MEDS ORDERED: Pantoprazole 40 MG VIAL IVP SCH (09:00)
[2019-01-20] MEDS ORDERED: Dexamethasone 4 mg/ml Vial SLOW IVP SCH (09:00)
[2019-01-20] MEDS: OXcarbazepine 150 MG TAB PO SCH (09:10)
[2019-01-20] MEDS: Gabapentin 300 MG CAP PO SCH ×2 (09:12→15:46)
[2019-01-20 15:37] VITALS: BP 134/80
--- NOTE | 2019-01-21 14:25 | EKG ---
Test Reason : PREOP Blood Pressure : / mmHG Vent. Rate : 086 BPM Atrial Rate : 086 BPM P-R Int : 132 ms QRS Dur : 068 ms QT Int : 354 ms P-R-T Axes : 050 060 067 degrees QTc Int : 423 ms Normal sinus rhythm Early repolarization Normal ECG When compared with ECG of 07-AUG-2018 14:44, No significant change was found Confirmed by EDVIN SPRINGER (2) on 01/21/2019 2:25:35 PM Referred By: ANASTACIA Confirmed By:EDVIN SPRINGER
== END 2019-01-20 18:19 | disposition home or self-care (01) ==
LOC: SDC 08:33 → SURG A 17:18 → SDC 01-20 18:19
PROVIDERS: ATTEND Surgery
PROC: 01NB0ZZ Release Lumbar Nerve, Open Approach (ICD-10-PCS; principal; 2019-01-19)
DX: M51.16 Intervertebral disc disorders with radiculopathy, lumbar region (principal); M48.061 Spinal stenosis, lumbar region without neurogenic claudication; G83.4 Cauda equina syndrome; Z79.899 Other long term (current) drug therapy; Z88.0 Allergy status to penicillin; Z88.1 Allergy status to other antibiotic agents; Z88.5 Allergy status to narcotic agent
CPT/HCPCS: 36415; 76000; 80048; 85025; 85610; 85730; 93005; 93010; C9113; J1100; J1170; J1956; J2250; J2270; J2405; J2550; J2704; J3010; J3370; J3490

== ENCOUNTER 2019-03-17 14:30 | Inpatient (IN) | payer OTHER ==
[~2019-03-17 14:30] MED LIST changes: -Gadobenate Dimeglumine 529 MG/1 ML (20ML VIAL) ONE; +Iopamidol-370 76% 500 ML 1 ML ONE
[2019-03-17 15:00] LABS: #Basophils 0.1 thou/uL (0.0-0.2); #Eosinphils 0.2 thou/uL (0.0-0.7); #Lymphocytes 2.7 thou/uL (1.20-3.40); #Monocytes 0.7 thou/uL (0.11-0.59); #Neutrophils 9.2 thou/uL (1.40-6.50); %Basophils 0.7 % (0.0-1.0); %Eosinophils 1.3 % (0.0-10.0); %Lymphocytes 20.9 % (21.0-51.0); %Monocytes 5.1 % (0.0-10.0); %Neutrophils 72.1 % (42.0-75.0); Hemoglobin 10.7 g/dL (12.0-16.0); Mean Corpuscular HGB CONC 33.5 g/dL (32.0-36.0); Mean Corpuscular Hemoglobin 30.6 pg (27.0-31.0); Mean Corpuscular Volume 91.2 fL (78.0-98.0); Mean Platelet Volume 7.4 fL (7.4-10.4); Platelet Count 504 thou/uL (130-400); RBC Distribution Width 15.2 % (11.5-14.5); White Blood Cell (WBC) Count 12.8 thou/uL (4.8-10.8)
--- NOTE | 2019-03-17 15:13 | RAD ---
EXAM: Portable chest PROVIDED CLINICAL HISTORY: Dyspnea COMPARISON: 06/30/2018 FINDINGS: Cardiac and mediastinal silhouette is within normal limits. No focal consolidation, pleural fluid or pneumothorax evident. IMPRESSION: No evidence for an acute cardiopulmonary process.
[2019-03-17 15:19] LABS: BHCG - Serum Negative (NEGATIVE); Pregs Control Background? CLEAR/WHITE (CLR/WHITE); Pregs Control Bar Appear? YES (CONTROL BAR)
[2019-03-17 15:28] LABS: CK (CPK) 31 U/L (29-168); Lipase 35 U/L (8-78)
[2019-03-17 15:51] LABS: ALT (SGPT) 7 U/L (8-55); AST (SGOT) 16 U/L (5-34); Albumin 3.6 g/dL (3.5-5.0); Alkaline Phosphatase 116 U/L (40-110); Anion Gap 16 mmol/L (10-20); BUN (Urea Nitrogen) 17 mg/dL (7.0-18.7); Bilirubin, Total 0.2 mg/dL (0.2-1.2); Calc. Creatinine Clearance 0 mL/min (70-130); Calcium 8.8 mg/dL (7.8-10.44); Carbon Dioxide 11 mmol/L (22-29); Chloride 114 mmol/L (98-107); Estimated GFR-MDRD 52; Glucose 114 mg/dL (70-105); Potassium 4.1 mmol/L (3.5-5.1); Protein, Total 7.6 g/dL (6.0-8.3); Sodium 137 mmol/L (136-145)
[2019-03-17 16:25] LABS: Analyzer IN Cardio ER; Base Excess (BEa) -15.2 mEq/L (-2.0 to +3.0); Calcium, Ionized 1.19 mmol/L (1.12-1.30); Hemoglobin (Hb) 9.6 g/dL (12.0-16.0); O2 Tension (PaO2) 142.9 mmHg (80.0-100.0); Potassium - ABG Lab 3.74 mmol/L (3.70-5.30); pH, Arterial 7.31 (7.35-7.45)
[2019-03-17 16:26] LABS: CO2 Tension 18.2 mmHg (35.0-45.0); Puncture Site LRA
--- NOTE | 2019-03-17 17:03 | CT ---
CT ANGIOGRAM THORAX WITH CONTRAST: (CTA pulmonary angiogram) DATE: 03/17/2019 HISTORY: 39-year-old female with elevated d-dimer and dyspnea. Dr. Santamaria reported the findings by telephone to Dr. Maya of the emergency Department at 4:57 PM on 02/28 TECHNIQUE: IV injection of iodinated contrast. Scan acquisition timing attempted to coincide with iodinated contrast bolus reaching maximal density in pulmonary arteries. 3-D MIP reconstructions. FINDINGS: There are filling defects representing thrombus in the posterior basilar segment and anteromedial bas ilar segment branches of the right lower lobe pulmonary artery, and their subsequent branches. No thrombus visualized in pulmonary trunk, left and right main pulmonary arteries, or left pulmonary art risa branches. Patchy bilateral multifocal groundglass infiltrates in the bilateral upper lobes, bilateral lower lob es, and right middle lobe. Questionable tiny bilateral pleural effusions. No thoracic aortic aneurysm or dissection. Minimally enlarged mediastinal and hilar lymph nodes. No pericardial effusion. IMPRESSION: 1) positive for pulmonary thromboembolism involving branches of right lower lobe pulmonary artery. 2) diffuse bilateral patchy groundglass/airspace infiltrates, nonspecific. Possibilities include nonc ardiogenic pulmonary edema versus infectious pneumonia versus noninfectious inflammatory process.
[2019-03-17] MEDS ORDERED: Enoxaparin Sodium 80 MG/0.8 ML SYRINGE ONE (17:27)
[2019-03-17] MEDS ORDERED: Nicotine 14 MG PATCH ONE (17:29)
--- NOTE | 2019-03-17 17:31 | PDOC.FPRHP ---
- History of Present Illness Chief Complaint: SOB/CP History of Present Illness: 39yo F h/o Bipolar, depression presents for CP and SOB. Pt states that she was at her usual state of health until yesterday when she began to experience SOB, this morning SOB worsened to point she couldn't want down driveway. Had associated CP described as "elephant sitting on chest." She had a subjective fever last night. This [facility] and was told to come into the ED for eval. Current denies any recent illness, long car rides or travel, recent immobilization. Did have back surgery in Dec 2018. Takes Depo for contraception. Does smoke 1/2ppd for past 5 years. Also endorses TREJO behind L left with floaters. No vision loss. No n/v. No radiation of the pain. ED Course: 2L NS. CTA positive for PE. - Allergies/Adverse Reactions Allergies Allergy/AdvReac Type Severity Reaction Status Date / Time cefdinir [From Omnicef] Allergy Anaphylaxis Verified 03/17/19 21:55 erythromycin base Allergy Emesis Verified 03/17/19 21:55 Penicillins Allergy Hives Verified 03/17/19 21:55 tramadol Allergy Verified 03/17/19 21:55 - Home Medications Medication Instructions Recorded Confirmed Type Venlafaxine HCl [Venlafaxine HCl 150 mg PO QAM 08/07/18 03/17/19 History ER] Gabapentin 600 mg PO TID 10/25/18 03/17/19 History Lurasidone HCl [Latuda] 1 tab PO HS 10/25/18 03/17/19 History MedroxyPROGESTERone [Depo-Provera] 150 mg IM Q90D 10/25/18 03/17/19 History Pantoprazole Sodium 1 tab PO QAM 10/25/18 03/17/19 History Zaleplon 1 tab PO HS 10/25/18 03/17/19 History Acetaminophen W/ Codeine 1 tab PO Q6HR PRN #80 tab 01/20/19 03/17/19 Rx [Acetaminophen/Codeine #3] tiZANidine HCl [Zanaflex] 4 mg PO TIDPRN PRN #60 tab 01/20/19 03/17/19 Rx Acetaminophen/Diphenhydramine 3 capsule PO HS PRN 03/17/19 03/17/19 History [Tylenol Pm Ex-Strength Caplet] Comments: Zanaflex, Effexor, Motrin, Gabapentin, Tylenol #3, Pepcid - History PMHx: Bipolar, Depression, back pain PSHx: multiple back surgeries, last in Dec 2018. Appy, tonsils, ankle surg. FHx: Mom - cervical cancer. Dad HLD. Social: Denies illicit or EtOH use. Smokes 1/2 ppd x5 years. - Review of Systems General: reports: fever/chills. denies: weight/appetite/sleep changes Eyes: denies: vision changes ENT: denies: nasal congestion, rhinorrhea Respiratory: reports: shortness of breath, exercise intolerance. denies: cough , congestion Cardiovascular: reports: chest pain. denies: palpitation, edema Gastrointestinal: denies: nausea, vomiting, abdominal pain Genitourinary: denies: incontinence, dysuria Neurological: denies: numbness, syncope Psychological: reports: anxiety, depression - Vital signs BP: 128/81, MAP: 96, Pulse: 86, Resp: 20, Temp: 97.4 (Oral), Pain: 0, O2 sat: 99 on (Room Air). Wt: 81kg - Physical Exam Constitutional: NAD, awake, alert and oriented, well developed HEENT: PERRLA, EOMI, conjunctiva clear, MMM Neck: supple, trachea midline Heart: RRR, normal S1/S2, no murmurs/rubs/gallops, no edema Lungs: CTAB, no respiratory distress, good air movement, no rales/rhonchi, no wheezing Abdomen: soft, non-tender, bowel sounds present Neurological: no focal deficit, normal sensation Skin: no rash/lesions Heme/Lymphatic: no unusual bruising or bleeding FMR H&P: Results - Labs Result Diagrams: 03/18/19 04:35 03/18/19 00:46 Lab results: WBC 12.8 thou/uL (4.8-10.8) H 03/17/19 14:44 Hgb 10.7 g/dL (12.0-16.0) L 03/17/19 14:44 Hct 32.0 % (36.0-47.0) L 03/17/19 14:44 MCV 91.2 fL (78.0-98.0) 03/17/19 14:44 Plt Count 504 thou/uL (130-400) H 03/17/19 14:44 Neutrophils % 72.1 % (42.0-75.0) 03/17/19 14:44 ABG pH 7.31 (7.35-7.45) L 03/17/19 16:10 ABG pCO2 18.2 mmHg (35.0-45.0) L* 03/17/19 16:10 ABG pO2 142.9 mmHg (80.0-100.0) H 03/17/19 16:10 Sodium 137 mmol/L (136-145) 03/17/19 14:44 Potassium 4.1 mmol/L (3.5-5.1) 03/17/19 14:44 Chloride 114 mmol/L (98-107) H 03/17/19 14:44 Carbon Dioxide 11 mmol/L (22-29) L 03/17/19 14:44 BUN 17 mg/dL (7.0-18.7) 03/17/19 14:44 Creatinine 1.16 mg/dL (0.6-1.1) H 03/17/19 14:44 Glucose 114 mg/dL (70-105) H 03/17/19 14:44 Lactic Acid 0.9 mmol/L (0.5-2.2) 03/17/19 15:20 Calcium 8.8 mg/dL (7.8-10.44) 03/17/19 14:44 Total Bilirubin 0.2 mg/dL (0.2-1.2) 03/17/19 14:44 AST 16 U/L (5-34) 03/17/19 14:44 ALT 7 U/L (8-55) L 03/17/19 14:44 Alkaline Phosphatase 116 U/L (40-110) H 03/17/19 14:44 Creatine Kinase 31 U/L (29-168) 03/17/19 14:44 B-Natriuretic Peptide 34.9 pg/mL (0-100) 03/17/19 14:44 Serum Total Protein 7.6 g/dL (6.0-8.3) 03/17/19 14:44 Albumin 3.6 g/dL (3.5-5.0) 03/17/19 14:44 Lipase 35 U/L (8-78) 03/17/19 14:44 - EKG Interpretation EKG: normal sinus rhythm, Rate (beats per minute): 71, Conduction normal, ST, ST elevation, probably due to early repolarization, T waves normal, [place] normal, Other findings include:, possible left atrial enlargement. - Radiology Interpretation CT scan - chest Status: report reviewed by me (R lower lobe PE, diffuse ground glass opacities) FMR H&P: A/P - Problem List (1) Pulmonary embolism Current Visit: Yes Status: Acute Code(s): I26.99 - OTHER PULMONARY EMBOLISM WITHOUT ACUTE COR PULMONALE Qualifiers: Chronicity: acute (2) Metabolic acidosis Current Visit: Yes Status: Acute Code(s): E87.2 - ACIDOSIS (3) Bipolar disorder Current Visit: Yes Status: Acute Code(s): F31.9 - BIPOLAR DISORDER, UNSPECIFIED - Plan 39yo F h/o Bipolar, depression presents for CP and SOB admitted for acute PE #PE - Presented with sxs of CP, SOB - Initially hypotensive, responded to fluids. Satting well on RA. - CTA Positive for Right-sided PE - Will place on Th lovenox and transition to DOAC in AM - Trop neg. TSH WNL, - Monitor resp status - Risk factors of Depo, surgery in Nov, smoking - Will order BL LE Doppler for DVTs. Unclear course of PE. #Non anion gap metabolic acidosis - Concern for RTA - Urine studies ordered - will monitor - LR @ 120cc/hr #SONU - Cr 1.16, baseline 0.8 - considering RTA, workup per above - IVF and monitor - UA with high SG #Leukocytosis - Wbc 12, likely volume contraction, will rehydrate and monitor - VSS, no s/s of infection at this time - UA pending #Anemia - Normocytic, chronic, at baseline #Bipolar - cont home meds PCP: DAVIS Ordaz DVT: Th lovenox IVF: LR @120cc/hr Code: Full Diet: Regular Dispo: Admitted for acute PE. Started th lovenox. Monitor. Non anion gap metabolic acidosis workup pending. FMR H&P: Upper Level - Plan Date/Time: 03/17/19 5061 I, Kamran Candelaria MD, have evaluated this patient and agree with findings/ plan as outlined by academic intern resident. Pertinent changes/additions are listed here. Pulmonary Embolism - Therapeutic Lovenox - Will transition to oral anticoagulants - Supplemental O2 as needed Non anion gap acidosis - Will trend Q6h BMP to monitor bicarbonate level - Suspected secondary to PE - Will order urine studies to rule out RTA All other chronic conditions reviewed and medications to be restarted as appropriate. PCP: DAVIS Ordaz CODE STATUS: FULL CODE Disposition: Stable, will admit to Telemetry for further evaluation and treatment. Addendum - Attending - Attending Attestation Date/Time: 03/18/19 6549 I personally evaluated the patient and discussed the management with Dr. Servin/ Teagan. I agree with the History, Examination, Assessment and Plan documented above with any addition or exceptions noted below. Patient here with acute onset shortness of breath and chest pain 3 days ago. She denies long trips or immobility, but is postsurgical and has been wearing a leg orthotic. She had CTA that showed PE. She will be admitted for PE. She is not hypoxic and is HDS. Continue anticoagulation and work to get on NOAC if possible. Will obtain LE dopplers and Echo to ensure no cardiac strain. She also has this hypercloremic metabolic acidosis. We will work up for RTA and compare her labs to clinic labs.
[2019-03-17 17:56] LABS: Bilirubin Negative (Negative); Blood, Urine Negative (Negative); Clarity Clear (Clear); Glucose, Urine (Dipstick) Normal (Negative); Leukocyte 500 Leu/uL (Negative); Nitrite Negative (Negative); Protein, Urine (Dipstick) 30 mg/dL (Neg-Trace); Urobilinogen Normal mg/dL (Less than 2); WBC/HPF Greater than 50 HPF (0-3)
[2019-03-17 17:58] LABS: Bacteria/HPF 1+ HPF (None Seen)
[2019-03-17 18:00] LABS: Amphetamine Not Detected (NotDetected); Barbiturates Screen Not Detected (NotDetected); Benzodiazepine Screen Not Detected (NotDetected); Cocaine Metabolite Screen Not Detected (NotDetected); Medtox Control Line Valid? VALID (VALID); Medtox Reader # READER 4; Methadone Not Detected (NotDetected); Methamphetamine Not Detected (NotDetected); Opiate Screen Detected (NotDetected); Oxycodone Screen Not Detected (NotDetected); Phencyclidine (PCP) Not Detected (NotDetected); THC/Cannabinoid Screen Not Detected (NotDetected); Tricyclic Screen Detected (NotDetected)
[2019-03-17 18:08] LABS: Alcohol Less than 10 mg/dL (Less than 10); Salicylate 10.3 mg/dL (15.0-30.0)
[2019-03-17] MEDS ORDERED: Acetaminophen 325 MG TAB PO PRN (18:56)
[2019-03-17] MEDS ORDERED: Ondansetron ODT 4 MG TAB PO PRN (18:56)
[2019-03-17] MEDS ORDERED: Sodium Chloride 0.9% 500 ML IV SCH (19:00)
[2019-03-17 19:44] VITALS: BMI 29.7
[2019-03-17 19:50] LABS: Anion Gap 14 mmol/L (10-20); BUN (Urea Nitrogen) 16 mg/dL (7.0-18.7); Calc. Creatinine Clearance 117 mL/min (70-130); Calcium 7.8 mg/dL (7.8-10.44); Carbon Dioxide 11 mmol/L (22-29); Chloride 119 mmol/L (98-107); Estimated GFR-MDRD 72; Glucose 97 mg/dL (70-105); Potassium 3.5 mmol/L (3.5-5.1); Sodium 140 mmol/L (136-145)
[2019-03-17 21:06] LABS: Creatinine, Urine 35.78 mg/dL (47-110); Potassium, Urine 38.9 mmol/L
[2019-03-17] MEDS ORDERED: Labetalol HCl 100 MG/20 ML VIAL SLOW IVP PRN (23:11)
[2019-03-17] MEDS: Lactated Ringer's 1,000 ML IV SCH (23:43)
[2019-03-18] MEDS ORDERED: tiZANidine HCl 4 MG TAB PO PRN (00:41)
[2019-03-18 01:14] LABS: Anion Gap 13 mmol/L (10-20); BUN (Urea Nitrogen) 13 mg/dL (7.0-18.7); Calc. Creatinine Clearance 127 mL/min (70-130); Calcium 8.3 mg/dL (7.8-10.44); Carbon Dioxide 11 mmol/L (22-29); Chloride 119 mmol/L (98-107); Estimated GFR-MDRD 79; Glucose 99 mg/dL (70-105); Potassium 3.3 mmol/L (3.5-5.1); Sodium 140 mmol/L (136-145)
[2019-03-18] MEDS ORDERED: Potassium Chloride 20 MEQ TAB PO SCH (02:15)
[2019-03-18 04:47] LABS: #Basophils 0.1 thou/uL (0.0-0.2); #Eosinphils 0.3 thou/uL (0.0-0.7); #Lymphocytes 2.6 thou/uL (1.20-3.40); #Monocytes 0.6 thou/uL (0.11-0.59); #Neutrophils 8.1 thou/uL (1.40-6.50); %Basophils 0.6 % (0.0-1.0); %Eosinophils 2.3 % (0.0-10.0); %Lymphocytes 22.2 % (21.0-51.0); %Monocytes 5.2 % (0.0-10.0); %Neutrophils 69.7 % (42.0-75.0); Hemoglobin 10.6 g/dL (12.0-16.0); Mean Corpuscular HGB CONC 32.2 g/dL (32.0-36.0); Mean Corpuscular Hemoglobin 30.2 pg (27.0-31.0); Mean Corpuscular Volume 93.8 fL (78.0-98.0); Mean Platelet Volume 7.1 fL (7.4-10.4); Platelet Count 433 thou/uL (130-400); RBC Distribution Width 15.4 % (11.5-14.5); Red Blood Cell (RBC) Count 3.53 mill/uL (4.20-5.40); White Blood Cell (WBC) Count 11.6 thou/uL (4.8-10.8)
--- NOTE | 2019-03-18 05:46 | PDOC.FM ---
- Objective Vital Signs & Weight: Vital Signs (12 hours) Temp Pulse Resp BP BP Pulse Ox 03/18/19 03:44 98.0 F 114 H 20 115/63 94 L 03/17/19 23:51 101 H 126/85 03/17/19 21:00 103 H 118/78 03/17/19 20:00 96 03/17/19 19:44 84 106/66 03/17/19 18:50 97.8 F 71 20 87/55 L 96 Weight Weight 86.137 kg Result Diagrams: 03/18/19 04:35 03/18/19 00:46 Dx/Plan - Plan Plan: Pulmonary Embolism - Therapeutic Lovenox - Will transition to oral anticoagulants - Supplemental O2 as needed Non anion gap acidosis - Will trend Q6h BMP to monitor bicarbonate level - Suspected secondary to PE - Will order urine studies to rule out RTA
--- NOTE | 2019-03-18 06:04 | PDOC.FM ---
- Subjective Subjective: Doing well this morning, no acute events overnight. SOB slightly improving. CP markedly improved with only mild pressure. No LE edema. No fever/chills, n/v, abd pain. Tolerating PO well. Has not ambulated since admission. - Objective MAR Reviewed: Yes Vital Signs & Weight: Vital Signs (12 hours) Temp Pulse Resp BP BP Pulse Ox 03/18/19 03:44 98.0 F 114 H 20 115/63 94 L 03/17/19 23:51 101 H 126/85 03/17/19 21:00 103 H 118/78 03/17/19 20:00 96 03/17/19 19:44 84 106/66 03/17/19 18:50 97.8 F 71 20 87/55 L 96 Weight Weight 86.137 kg Result Diagrams: 03/18/19 04:35 03/18/19 00:46 EKG Reviewed by me: Yes (Tele: NSR with episodes of sinus tach) Phys Exam - Physical Examination Constitutional: NAD (resting comfortably) HEENT: moist MMs poor dentition Neck: supple Respiratory: no wheezing, no rales, no rhonchi, clear to auscultation bilateral Cardiovascular: RRR, no significant murmur, no rub Gastrointestinal: soft, non-tender, no distention, positive bowel sounds Musculoskeletal: no edema, pulses present Neurological: non-focal, moves all 4 limbs Psychiatric: normal affect, A&O x 3 Dx/Plan (1) Pulmonary embolism Code(s): I26.99 - OTHER PULMONARY EMBOLISM WITHOUT ACUTE COR PULMONALE Status : Acute Qualifiers: Chronicity: acute (2) Metabolic acidosis Code(s): E87.2 - ACIDOSIS Status: Acute (3) Bipolar disorder Code(s): F31.9 - BIPOLAR DISORDER, UNSPECIFIED Status: Acute - Plan Plan: 39yo F h/o Bipolar, depression presents for CP and SOB admitted for acute PE #PE - Presented with sxs of CP, SOB -> sxs improving - Initially hypotensive, responded to fluids. Satting well on RA. VSS - CTA Positive for Right-sided PE - Th lovenox and transition to Eliquis today - Trop neg. TSH WNL. - Monitor resp status - Risk factors of Depo, surgery in Nov, smoking - Will order BL LE Doppler for DVTs. Unclear cause of PE. #Non anion gap metabolic acidosis - Concern for RTA - Urine studies no acidosis, final studies pending - possibly 2/2 respiratory alkalosis compensation - Stable, will monitor - LR @ 120cc/hr #SNOU, resolved - Cr 1.16 -> 0.8 - IVF and monitor #Hypokalemia - K 3.3, replaced. Will check Mg and replace as necessary. #Leukocytosis - Wbc 12, likely volume contraction, will rehydrate and monitor - VSS, no s/s of infection at this time - dirty but asymptomatic -> asx bacteuria #Anemia - Normocytic, chronic, at baseline #Bipolar - cont home meds PCP: DAVIS Ordaz DVT: Th lovenox IVF: LR @120cc/hr Code: Full Diet: Regular Dispo: Admitted for acute PE. Th lovenox. Transition to Eliquis. Monitor. Non anion gap metabolic acidosis workup pending. Addendum - Attending - Attending Attestation Date/Time: 03/18/19 1934 I personally evaluated the patient and discussed the management with Dr. Servin. I agree with the History, Examination, Assessment and Plan documented above with any addition or exceptions noted below. See H/P addendum for full details.
[2019-03-18] MEDS: Lactated Ringer's 1,000 ML IV SCH ×3 (06:25→20:47)
[2019-03-18] MEDS: Apixaban 5 MG TAB PO SCH ×2 (08:03→20:46)
[2019-03-18] MEDS: Gabapentin 300 MG CAP PO SCH ×3 (08:03→20:47)
[2019-03-18] MEDS: Venlafaxine HCl XR 75 MG CAP PO SCH (08:03)
[2019-03-18] MEDS ORDERED: Enoxaparin Sodium 100 MG/ML SYRINGE SC SCH (09:00)
--- NOTE | 2019-03-18 11:23 | ULT ---
EXAM: Bilateral lower extremity venous Doppler PROVIDED CLINICAL HISTORY: Pulmonary embolus FINDINGS: Grayscale and color Doppler sonography with spectral analysis was performed of the common femoral, fe moral, popliteal, posterior tibial, greater saphenous and profunda femoral veins bilaterally. The evaluated venous structures demonstrate a normal sonographic appearance. IMPRESSION: No sonographic evidence for lower extremity deep venous thrombosis.
[2019-03-18] MEDS ORDERED: LURASIDONE HCL PO SCH (21:00)
[2019-03-18] MEDS ORDERED: [UNRECOGNIZED DRUG - OTHER] PO SCH (21:00)
[2019-03-19] MEDS ORDERED: Acetaminophen/Codeine 30-300mg Tablet PO SCH (03:25)
[2019-03-19] MEDS: Lactated Ringer's 1,000 ML IV SCH (03:43)
--- NOTE | 2019-03-19 05:57 | PDOC.FM ---
- Subjective Subjective: Doing well this morning, Cp has resolved. SOB improving. Tolerating PO well without n/v. No fever/chills, abd pain, LE edema. Ambulating well. Eager for discharge. - Objective MAR Reviewed: Yes Vital Signs & Weight: Vital Signs (12 hours) Temp Pulse Resp BP Pulse Ox 03/19/19 03:34 97.8 F 91 20 114/64 100 03/19/19 00:00 92 18 03/18/19 20:00 98.7 F 112 H 20 108/57 L 96 Weight Weight 86.137 kg I&O: 03/17/19 03/18/19 03/19/19 06:59 06:59 06:59 Intake Total 2293 2520 Output Total 2100 Balance 193 2520 Result Diagrams: 03/18/19 04:35 03/18/19 00:46 Phys Exam - Physical Examination Constitutional: NAD (resting comfortably, in good spirits) HEENT: moist MMs Neck: supple Respiratory: no wheezing, no rales, no rhonchi, clear to auscultation bilateral Cardiovascular: RRR, no significant murmur, no rub Gastrointestinal: soft, non-tender, no distention, positive bowel sounds Musculoskeletal: no edema Neurological: non-focal, moves all 4 limbs Psychiatric: normal affect, A&O x 3 Dx/Plan (1) Pulmonary embolism Code(s): I26.99 - OTHER PULMONARY EMBOLISM WITHOUT ACUTE COR PULMONALE Status : Acute Qualifiers: Chronicity: acute (2) Metabolic acidosis Code(s): E87.2 - ACIDOSIS Status: Acute (3) Bipolar disorder Code(s): F31.9 - BIPOLAR DISORDER, UNSPECIFIED Status: Acute - Plan Plan: 39yo F h/o Bipolar, depression presents for CP and SOB admitted for acute PE #PE - Presented with sxs of CP, SOB -> sxs cont to improve - Initially hypotensive, responded to fluids. Satting well on RA. VSS - CTA Positive for Right-sided PE - s/p lovenox. Now on Eliquis - 10mg BID x7d then transition to 5mg BID - Trop neg. TSH WNL. - Monitor resp status - Risk factors of Depo, back and ankle surgery in Nov and was in boot, smoking - Doppler US neg for DVT - Echo WNL, EF 60-65% - Discussed pt needs to talk with PCP regarding BC options as hormonal BC is relatively contraindicated with PE. Voiced understanding and agreement. States she is due for Depo so will make appt. #Non anion gap metabolic acidosis, chronic - Concern for RTA - Urine studies no acidosis, final studies pending - possibly 2/2 respiratory alkalosis compensation - Stable, and after record review appears to be chronic in nature, will monitor - d/c IVF #SONU, resolved - Cr 1.16 -> 0.8 #Hypokalemia - K 3.3, replaced. Mg 1.9 #Leukocytosis - Wbc 12, likely volume contraction, will rehydrate and monitor - VSS, no s/s of infection at this time - dirty but asymptomatic -> asx bacteuria #Anemia - Normocytic, chronic, at baseline #Bipolar - cont home meds #Tob abuse - encourage cessation, discussed risk factor for PE. States she is interested in quitting and will speak with PCP regarding NRT and/or chantix. PCP: DAVIS Ordaz DVT: Th lovenox IVF: SL Code: Full Diet: Regular Dispo: Admitted for acute PE. Transitioned to Eliquis. Monitor. Non anion gap metabolic acidosis appears chronic. VSS and SOB improved with pain resolved. Anticipate discharge today pending clinical course. Addendum - Attending - Attending Attestation Date/Time: 03/19/19 1416 I personally evaluated the patient and discussed the management with Dr. Servin. I agree with the History, Examination, Assessment and Plan documented above with any addition or exceptions noted below. Patient doing well. Not requiring O2 and otherwise stable. She will be discharged today for suspected provoked PE on Eliquis. Precautions given. She will need to be off hormonal contraceptives and stop smoking. She has follow up with PCP later this week.
[2019-03-19 07:22] VITALS: BP 123/81; TEMP 98.3
--- NOTE | 2019-03-19 08:10 | PDOC.BPN ---
- Brief Progress Note Ms. Newton is doing well this morning. States she feels like she is breathing better, still some pain with deep inspiration. Discussed with patient risks of resuming Depo shot for control, she has previously obtained this from a clinic other than [facility] in the past. Patient does not wish to try any other form of contraception at this time d/t side effects she had in the past with other methods. She continues to express her desire to quit smoking, which we have been working on as an outpatient. She is down to 4-5 cigarettes/day ( was previously at 0.5 ppd at last visit), which she mainly uses when she has periods of increased anxiety. Instructed patient we can discuss some NRT/ Chantix options at her hospital f/u appointment. Agree with primary team's plan. Patient will plan to schedule an appointment to see me in clinic on Tuesday.
[2019-03-19] MEDS: Gabapentin 300 MG CAP PO SCH (08:21)
[2019-03-19] MEDS: Venlafaxine HCl XR 75 MG CAP PO SCH (08:21)
[2019-03-19] MEDS: Apixaban 5 MG TAB PO SCH (08:22)
--- NOTE | 2019-03-19 12:09 | DIS ---
DATE OF ADMISSION: 03/17/2019 DATE OF DISCHARGE: 03/19/2019 RESIDENT: Dr. Román Servin. ADMITTING ATTENDING: Sherif Burton MD DISCHARGE ATTENDING: Sherif Burton MD CONSULTS: None. PROCEDURES: 1. Chest x-ray on 03/17/2019 demonstrating no acute cardiopulmonary disease. 2. CTA of chest on 03/17/2019 demonstrating pulmonary thromboembolism involving the branches of the right lower lobe pulmonary artery as well as diffuse bilateral patchy ground-glass airspace infiltrates, that are nonspecific. Possibilities include noncardiogenic pulmonary edema versus infectious pneumonia versus noninfectious inflammatory process. 3. Venogram on 03/18/2019 demonstrating no evidence of lower extremity DVT. 4. Echocardiogram on 03/18/2019 demonstrating an EF of 60% to 65%. Normal right ventricular size and function. Valves within normal limits. PRIMARY DIAGNOSIS: Pulmonary embolism. SECONDARY DIAGNOSES: 1. Non-anion gap metabolic acidosis. 2. Acute kidney injury, resolved. 3. Hypokalemia. 4. Anemia, chronic. 5. Bipolar. 6. Tobacco abuse. DISCHARGE MEDICATIONS: 1. Eliquis 10 mg p.o. b.i.d. x6 days. 2. Eliquis 5 mg p.o. b.i.d., to start after completion of 10 mg course. 3. Effexor ER 150 mg p.o. q.a.m. 4. Protonix 40 mg p.o. q.a.m. 5. Latuda 40 mg p.o. at bedtime. 6. Zaleplon 5 mg p.o. at bedtime. 7. Gabapentin 600 mg p.o. t.i.d. 8. Tizanidine 4 mg p.o. t.i.d. p.r.n. 9. Tylenol No. 3 one tablet p.o. q.6 hours p.r.n. DISCONTINUED MEDICATIONS: Depo 150 mg IM every 3 months. HISTORY OF PRESENT ILLNESS AND HOSPITAL COURSE: The patient is a 39-year-old female with history of bipolar and depression, presented for chest pain and shortness of breath. The patient said that she was in her usual state of health until the day prior to admission when she began to experience slow onset of shortness of breath. This shortness of breath worsened in the morning to the point that she could not walk on her driveway. She also began to have associated chest pain, shows an elephant sitting on her chest, subjective fever the night prior. She called the after hours pager for clinic and was instructed to come to the emergency department for further evaluation. She denies any recent illness or recent long car rides or travel or immobilization. However, did have back surgery and ankle surgery requiring her to be placed in a boot back in December 2018. She also takes Depo for contraception and has smoked approximately half-pack per day for the past 5 years. In the ER, her vitals were stable. She was mildly hypotensive, responded to [address] of the chest was positive for PE. She was admitted to the floor for further management. Once on the floor, she was started on therapeutic Lovenox, that was then transitioned to p.o. Eliquis. The patient was monitored on telemetry and did not have any acute events. Her O2 saturations remained stable and her chest pain resolved. Her shortness of breath improved throughout her hospitalization. She was able to ambulate and tolerate p.o. well without any nausea or vomiting. Troponins and TSH were within normal limits. A Doppler ultrasound was negative for DVT, and an echo was within normal limits. It was discussed with the patient about her risk factors for developing PE including her control, recent surgery, embolization, and smoking, as well as small increased risk with her history of psychiatric medications. It was discussed that she would benefit from quitting smoking and finding a different form of control and to follow up with her primary care provider for this discussion. She voiced agreement understanding and desired to quit smoking as well. At the time of discharge, her respiratory status was stable. She was eager to be discharged home. The patient also presented with a mild SONU with creatinine 1.16, improved with fluid hydration to 0.8. She also was noted to have a non-anion gap metabolic acidosis that appeared chronic in nature from record review. Urine studies were ordered, that did not show any renal tubular acidosis. She also had a mild hypokalemia, that was replaced. Regarding her chronic medical conditions including her bipolar and depression, her home medications were continued. At the time of discharge, the patient was doing well near her baseline. She was eager to be discharged home. Discharge plan was discussed with patient, who voiced agreement and understanding and appropriate followup and taking her medications as directed. The patient will need to be on Eliquis for at least 3 months until risk factors are modified. Should the patient have a further DVT or PE, detailed discussion for lifelong anticoagulation will need to be discussed and further workup as necessary. DISPOSITION: Stable. DISCHARGE INSTRUCTIONS: 1. Location: Home. 2. Diet, as tolerated. 3. Activity, as tolerated. 4. Followup: The patient to follow up with her primary care physician within 1 week of discharge, Dr. Ordaz at [facility]. Job ID: [id number]
--- NOTE | 2019-03-21 03:01 | PQF ---
[employer] Reports Win[employer] SABI Colon JASON MD *r* [id number] CLINICAL DOCUMENTATION CLARIFICATION FORM: POST DISCHARGE Addendum to original discharge summary date: ____ Late entry note date: __ DATE: 03/21/19 ATTN:Sherif Bonner Please exercise your independent, professional judgment in responding to the clarification form. Clinical indicators are provided on the bottom of this form for your review Can you please further clarify the specificity of Pulmonary Embolism? Please check appropriate box(s): [ ] Non Post Operative Pulmonary Embolism [ ] Post Operative Pulmonary embolism [ ] Other diagnosis please specify [ X ] Unable to determine In addition, please specify: Present on Admission (POA): [X ] Yes [ ] No [ ] Unable to determine For continuity of documentation, please document condition throughout progress notes and discharge summary. Thank You. CLINICAL INDICATORS - SIGNS / SYMPTOMS / LABS H and P pg.1- presents for CP and SOB H and P pg.1- CTA positive for PE DS pg2 03/19- did have back surgery and ankle surgery requiring her to be placed in a boot back in Dec 2018 DS pg2 03/19- It was discussed with the patient about her risk factors for developing PE including control, recent surgery, embolization and smoking HP pg5 03/17- Unclear course of PE RISK FACTORS Smokes ppd- H and P pg.1 multiple back surgery- H and P pg.2 Anemia- Ds pg.1 TREATMENT: Chest X ray 03/17 Chest/Thorax CTA 03/17 Therapeutic Lovenox- DS pg.2 O2 supplementation IV fluids- MAR (This form is maintained as a part of the permanent medical record) 2014 [employer]. All Rights Reserved [email or web address] [not provided] MTDD
[2019-03-25] MEDS ORDERED: Apixaban 5 MG TAB PO SCH (21:00)
== END 2019-03-19 13:56 | disposition home or self-care (01) | DRG 176 ==
LOC: ERS 14:30 → 2NO 16:52
PROVIDERS: ADMIT Student in an Organized Health Care Education/Training Program; ATTEND Student in an Organized Health Care Education/Training Program
DX: I26.99 Other pulmonary embolism without acute cor pulmonale (principal); E87.2 Acidosis; N17.9 Acute kidney failure, unspecified; E87.6 Hypokalemia; D64.9 Anemia, unspecified; F31.9 Bipolar disorder, unspecified; I95.9 Hypotension, unspecified; G62.9 Polyneuropathy, unspecified; I10 Essential (primary) hypertension; K21.9 Gastro-esophageal reflux disease without esophagitis; F41.9 Anxiety disorder, unspecified; F17.210 Nicotine dependence, cigarettes, uncomplicated; D72.829 Elevated white blood cell count, unspecified; Z90.49 Acquired absence of other specified parts of digestive tract; Z88.1 Allergy status to other antibiotic agents; Z88.0 Allergy status to penicillin; Z88.5 Allergy status to narcotic agent; Z79.899 Other long term (current) drug therapy; E87.8 Other disorders of electrolyte and fluid balance, not elsewhere classified
CPT/HCPCS: 36415; 71045; 71275; 80048; 80053; 80306; 80307; 81003; 81015; 82140; 82340; 82436; 82550; 82570; 82805; 83605; 83690; 83735; 83880; 84133; 84156; 84300; 84443; 84484; 84703; 85025; 85379; 87040; 87804; 93005; 93306; 93970; J1650; Q9967

== ENCOUNTER 2019-03-28 17:25 | Emergency (ER) | payer OTHER ==
--- NOTE | 2019-03-28 18:57 | RAD ---
PA AND LATERAL CHEST: 03/28/19 HISTORY: Shortness of breath. COMPARISON: 12/28/16 study. FINDINGS: Heart size and mediastinum are within normal limits. The lungs are clear of any focal infiltrative p rocess. IMPRESSION: No active intrathoracic disease. POS: [facility]
[2019-03-28 19:14] LABS: #Basophils 0.1 thou/uL (0.0-0.2); #Eosinphils 0.4 thou/uL (0.0-0.7); #Lymphocytes 4.4 thou/uL (1.20-3.40); #Monocytes 0.9 thou/uL (0.11-0.59); #Neutrophils 6.1 thou/uL (1.40-6.50); %Basophils 1.2 % (0.0-1.0); %Eosinophils 3.6 % (0.0-10.0); %Lymphocytes 36.8 % (21.0-51.0); %Monocytes 7.2 % (0.0-10.0); %Neutrophils 51.3 % (42.0-75.0); Hemoglobin 12.6 g/dL (12.0-16.0); Mean Corpuscular Hemoglobin 29.2 pg (27.0-31.0); Mean Corpuscular Volume 91.3 fL (78.0-98.0); Mean Platelet Volume 7.1 fL (7.4-10.4); Platelet Count 502 thou/uL (130-400); RBC Distribution Width 15.4 % (11.5-14.5); Red Blood Cell (RBC) Count 4.31 mill/uL (4.20-5.40); White Blood Cell (WBC) Count 11.9 thou/uL (4.8-10.8)
[2019-03-28 19:35] LABS: ALT (SGPT) 44 U/L (8-55); AST (SGOT) 34 U/L (5-34); Albumin 4.5 g/dL (3.5-5.0); Alkaline Phosphatase 147 U/L (40-110); Anion Gap 17 mmol/L (10-20); BUN (Urea Nitrogen) 24 mg/dL (7.0-18.7); Bilirubin, Total Less than 0.2 mg/dL (0.2-1.2); Calc. Creatinine Clearance 0 mL/min (70-130); Calcium 9.3 mg/dL (7.8-10.44); Carbon Dioxide 18 mmol/L (22-29); Chloride 109 mmol/L (98-107); Estimated GFR-MDRD 53; Globulin 3.7 g/dL (2.4-3.5); Glucose 73 mg/dL (70-105); Potassium 3.8 mmol/L (3.5-5.1); Protein, Total 8.2 g/dL (6.0-8.3); Sodium 140 mmol/L (136-145)
[2019-03-28 19:42] LABS: BHCG - Serum Negative (NEGATIVE); Pregs Control Background? CLEAR/WHITE (CLR/WHITE); Pregs Control Bar Appear? YES (CONTROL BAR)
--- NOTE | 2019-03-28 20:50 | CT ---
CT ANGIO OF CHEST PERFORMED WITH INTRAVENOUS CONTRAST ENHANCEMENT WITH 3D RECONSTRUCTIONS: 03/28/19 HISTORY: Dyspnea, shortness of breath. COMPARISON: A 03/17/19 exam. The lungs are clear of any infiltrative process. No pulmonary nodules or pleural effusions are identi fied. Patchy ground glass density seen in both lung klein noted on the previous study has completely resol tabitha. The thoracic aorta is normal in caliber. There is fair pulmonary artery opacification. Opacification is not as good as seen on the previous exam. There appears to be a tiny amount of residual embolus se en within a subsegmental branch in the right lower lobe which would be difficult to even perceive if not for the previous exam. This is probably just residual chronic change. The visualized liver parenchyma is normal. IMPRESSION: Resolution of the ground glass opacity in both lung klein. No evidence of any new pulmonary embolus. A tiny residual subsegmental embolus is seen in the right lower lobe. POS: [facility]
== END 2019-03-28 21:25 | disposition home or self-care (01) ==
LOC: ERS 17:25
DX: I26.99 Other pulmonary embolism without acute cor pulmonale (principal); E86.0 Dehydration; K21.9 Gastro-esophageal reflux disease without esophagitis; F41.9 Anxiety disorder, unspecified; F31.9 Bipolar disorder, unspecified; I10 Essential (primary) hypertension; F17.210 Nicotine dependence, cigarettes, uncomplicated; G62.9 Polyneuropathy, unspecified; Z79.1 Long term (current) use of non-steroidal anti-inflammatories (NSAID); Z79.891 Long term (current) use of opiate analgesic; Z79.899 Other long term (current) drug therapy
CPT/HCPCS: 36415; 71046; 71275; 80053; 83880; 84484; 84703; 85025; 93005; 96360; Q9967

== ENCOUNTER 2019-08-29 11:17 | Emergency (ER) | payer OTHER ==
[2019-08-30 14:15] LABS: SARS-CoV-2 MS2 Positive; SARS-CoV-2 N Gene Negative; SARS-CoV-2 S Gene Negative; SARS-CoV-2 orf1ab Negative
== END 2019-08-29 11:43 | disposition home or self-care (01) ==
LOC: ERS 11:17
DX: R06.02 Shortness of breath (principal); R05 Cough; K21.9 Gastro-esophageal reflux disease without esophagitis; I10 Essential (primary) hypertension; F31.9 Bipolar disorder, unspecified; F41.9 Anxiety disorder, unspecified; F17.210 Nicotine dependence, cigarettes, uncomplicated; Z20.828 Contact with and (suspected) exposure to other viral communicable diseases; Z79.899 Other long term (current) drug therapy; Z79.01 Long term (current) use of anticoagulants
CPT/HCPCS: 87635; 99283; U0003

== ENCOUNTER 2019-12-26 15:49 | Emergency (ER) | payer OTHER ==
--- NOTE | 2019-12-26 16:58 | RAD ---
EXAM: 3 views of the left hand COMPARISON: None HISTORY: Hand pain after dog bite FINDINGS: 3 views of the hand shows no evidence of acute fracture or dislocation. No degenerative joselito nges are seen. No soft tissue swelling is present. IMPRESSION: Unremarkable exam.
== END 2019-12-26 17:30 | disposition home or self-care (01) ==
LOC: ERS 15:49
DX: S61.452A Open bite of left hand, initial encounter (principal); S81.852A Open bite, left lower leg, initial encounter; K21.9 Gastro-esophageal reflux disease without esophagitis; I10 Essential (primary) hypertension; F41.9 Anxiety disorder, unspecified; F31.9 Bipolar disorder, unspecified; F17.210 Nicotine dependence, cigarettes, uncomplicated; Z79.899 Other long term (current) drug therapy; W54.0XXA Bitten by dog, initial encounter

== ENCOUNTER 2020-03-29 11:04 | Inpatient (IN) | payer OTHER ==
[2020-03-29 11:52] LABS: #Lymphocytes 1.4 thou/uL (1.20-3.40); #Monocytes 0.4 thou/uL (0.11-0.59); #Neutrophils 11.5 thou/uL (1.40-6.50); %Basophils 0.2 % (0.0-1.0); %Eosinophils 0.1 % (0.0-10.0); %Lymphocytes 10.3 % (21.0-51.0); %Monocytes 2.8 % (0.0-10.0); %Neutrophils 86.6 % (42.0-75.0); Hemoglobin 14.1 g/dL (12.0-16.0); Mean Corpuscular HGB CONC 32.7 g/dL (32.0-36.0); Mean Corpuscular Hemoglobin 29.7 pg (27.0-31.0); Mean Corpuscular Volume 90.7 fL (78.0-98.0); Mean Platelet Volume 8.4 fL (7.4-10.4); Platelet Count 248 thou/uL (130-400); RBC Distribution Width 13.6 % (11.5-14.5); Red Blood Cell (RBC) Count 4.77 mill/uL (4.20-5.40); White Blood Cell (WBC) Count 13.3 thou/uL (4.8-10.8)
--- NOTE | 2020-03-29 11:55 | RAD ---
RADIOGRAPH CHEST 1 VIEW: DATE: 03/29/2020 TIME: 11:38 AM HISTORY: 40-year-old female, COVID 19 positive, presents with dyspnea COMPARISON: 03/28/2020 FINDINGS: New finding of small mild focal infiltrate at right base. New finding of diffuse bilateral mild, faint groundglass infiltrates in upper, mid, and lower lung zo zabrina. No cardiomegaly or pneumothorax. IMPRESSION: Evidence for diffuse mild bilateral COVID 19 pneumonia
[2020-03-29 12:13] LABS: BHCG - Serum Negative (NEGATIVE); Pregs Control Background? CLEAR/WHITE (CLR/WHITE); Pregs Control Bar Appear? YES (CONTROL BAR)
[2020-03-29 12:16] LABS: ALT (SGPT) 46 U/L (8-55); AST (SGOT) 50 U/L (5-34); Albumin 3.5 g/dL (3.5-5.0); Alkaline Phosphatase 125 U/L (40-110); Anion Gap 13 mmol/L (10-20); BUN (Urea Nitrogen) 8 mg/dL (7.0-18.7); Bilirubin, Total 0.2 mg/dL (0.2-1.2); Calc. Creatinine Clearance 0 mL/min (70-130); Calcium 9.3 mg/dL (7.8-10.44); Carbon Dioxide 12 mmol/L (22-29); Chloride 116 mmol/L (98-107); Glucose 122 mg/dL (70-105); Potassium 3.3 mmol/L (3.5-5.1); Protein, Total 7.5 g/dL (6.0-8.3); Sodium 138 mmol/L (136-145)
--- NOTE | 2020-03-29 12:42 | PDOC.FPRHP ---
- History of Present Illness Chief Complaint: Worsening COVID symptoms History of Present Illness: 40yoF presents to the ER by EMS for evaluation of worsening COVID-19 symptoms. Her symptoms began on 03/21/2020 with cough, loss of taste and smell, congestion, and shortness of breath. She was seen at [facility] on 03/25 and diagnosed with COVID with a rapid antigen test and sent home with ER precautions and symptom management instructions. She states over the last 24 hours her shortness of breath significantly worsened and she felt like she was struggling to breathe. She called EMS. On arrival, her O2 saturation was reported to be 80% on room air. They gave her a DuoNeb and started her on O2 via NC. Once she arrived to the ED, the RN took off the NC and monitored her saturations. They were in the low 80s. She then put the patient on 6L NC and her maximum was in the upper 80s, so she called for HFNC which brought her sats to the mid 90s. She is still short of breath appearing and working to breathe. She has a history of pulmonary emboli from 2019 for which she takes Eliquis. She has missed a couple of doses this week. ED Course: 1L NS, 10mg decadron, IV Levaquin, Lovenox 1mg/kg - Allergies/Adverse Reactions Allergies Allergy/AdvReac Type Severity Reaction Status Date / Time cefdinir [From Omnicef] Allergy Anaphylaxis Verified 03/29/20 14:31 erythromycin base Allergy Emesis Verified 03/29/20 14:31 Penicillins Allergy Hives Verified 03/29/20 14:31 tramadol Allergy Verified 03/29/20 14:31 - Home Medications Medication Instructions Recorded Confirmed Type Venlafaxine HCl [Venlafaxine HCl 150 mg PO QAM 08/07/18 03/29/20 History ER] Gabapentin 300 mg PO TID 10/25/18 03/29/20 History Acetaminophen W/ Codeine 1 tab PO Q6HR PRN #80 tab 01/20/19 03/29/20 Rx [Acetaminophen/Codeine #3] tiZANidine HCl [Zanaflex] 4 mg PO TIDPRN PRN #60 tab 01/20/19 03/29/20 Rx Apixaban [Eliquis] 5 mg PO BID #30 tab 03/19/19 03/29/20 Rx Ibuprofen 800 mg PO Q8HR PRN 03/29/20 03/29/20 History QUEtiapine Fumarate [SEROquel] 400 mg PO HS 03/29/20 03/29/20 History Varenicline Tartrate [Chantix] 1 mg PO BID 03/29/20 03/29/20 History - History PMHx: PE diagnosed 03/17/2019, HTN, GERD, peripheral neuropathy, chronic back pain, depression, anxiety PSHx: L4-L5 hemilaminotomy, foraminotomy, diskectomy revision (12/2018), tonsillectomy FHx: Mom: HTN, Dad: HLD Social: 1/2 pack per week tobacco use x 10 years. Former heroin and and marijuana abuse, denies current use. Denies alcohol use. - Review of Systems General: reports: fever/chills, weight/appetite/sleep changes, fatigue ENT: reports: nasal congestion. denies: rhinorrhea Respiratory: reports: cough, congestion, shortness of breath Cardiovascular: denies: chest pain, palpitation, edema, paroxysmal nocturnal dyspnea, orthopnea Gastrointestinal: denies: nausea, vomiting, diarrhea, constipation, abdominal pain Genitourinary: denies: incontinence, dysuria Skin: denies: rashes, lesions Musculoskeletal: denies: pain, tenderness Neurological: reports: weakness. denies: numbness, syncope, seizure Psychological: reports: anxiety, depression - Vital signs Weight: 100kg Selected Entries 03/29/20 14:05 Temperature 98.8 F Pulse Rate 124 H Blood Pressure 125/79 [Semi-Fowlers] Respiratory 25 H Rate O2 Sat by Pulse 94 L Oximetry Oxygen Flow 35 Rate Oxygen Delivery High Flow NC Method % Fraction of 40 Inspired Oxygen (FIO2) - Physical Exam Constitutional: awake, alert and oriented -Constitutional: Visibly short of breath, tachypneic HEENT: normocephalic and atraumatic, PERRLA, EOMI, conjunctiva clear, grossly normal vision, grossly normal hearing, MMM Neck: supple, FROM, trachea midline Heart: normal S1/S2, no murmurs/rubs/gallops -Heart: tachycardic Lungs: CTAB, good air movement -Lungs: tachypneic Abdomen: soft, non-tender Musculoskeletal: normal structure, normal tone Neurological: no focal deficit, CN II-XII intact Skin: no rash/lesions, good turgor Heme/Lymphatic: no unusual bruising or bleeding, no purpura Psychiatric: normal mood and affect, good judgment and insight, intact recent and remote memory FMR H&P: Results - Labs Result Diagrams: 03/29/20 11:25 03/29/20 11:25 Lab results: WBC 13.3 thou/uL (4.8-10.8) H 03/29/20 11:25 Hgb 14.1 g/dL (12.0-16.0) 03/29/20 11:25 Hct 43.2 % (36.0-47.0) 03/29/20 11:25 MCV 90.7 fL (78.0-98.0) 03/29/20 11:25 Plt Count 248 thou/uL (130-400) 03/29/20 11:25 Neutrophils % 86.6 % (42.0-75.0) H 03/29/20 11:25 Sodium 138 mmol/L (136-145) 03/29/20 11:25 Potassium 3.3 mmol/L (3.5-5.1) L 03/29/20 11:25 Chloride 116 mmol/L (98-107) H 03/29/20 11:25 Carbon Dioxide 12 mmol/L (22-29) L 03/29/20 11:25 BUN 8 mg/dL (7.0-18.7) 03/29/20 11:25 Creatinine 0.82 mg/dL (0.6-1.1) 03/29/20 11:25 Glucose 122 mg/dL (70-105) H 03/29/20 11:25 Lactic Acid 2.0 mmol/L (0.5-2.2) 03/29/20 11:25 Calcium 9.3 mg/dL (7.8-10.44) 03/29/20 11:25 Total Bilirubin 0.2 mg/dL (0.2-1.2) 03/29/20 11:25 AST 50 U/L (5-34) H 03/29/20 11:25 ALT 46 U/L (8-55) 03/29/20 11:25 Alkaline Phosphatase 125 U/L (40-110) H 03/29/20 11:25 Serum Total Protein 7.5 g/dL (6.0-8.3) 03/29/20 11:25 Albumin 3.5 g/dL (3.5-5.0) 03/29/20 11:25 - Radiology Interpretation Chest x-ray Status: image reviewed by me, report reviewed by me (Diffuse COVID 19 PNA.) FMR H&P: A/P - Problem List (1) History of pulmonary embolism Current Visit: Yes Status: Acute Code(s): Z86.711 - PERSONAL HISTORY OF PULMONARY EMBOLISM (2) HTN (hypertension) Current Visit: Yes Status: Acute Code(s): I10 - ESSENTIAL (PRIMARY) HYPERTENSION (3) Peripheral neuropathy Current Visit: Yes Status: Acute Code(s): G62.9 - POLYNEUROPATHY, UNSPECIFIED (4) COVID-19 Current Visit: Yes Status: Acute Code(s): U07.1 - COVID-19 (5) Pneumonia Current Visit: Yes Status: Acute Code(s): J18.9 - PNEUMONIA, UNSPECIFIED ORGANISM (6) S/P laminectomy Current Visit: No Status: Acute Code(s): Z98.890 - OTHER SPECIFIED POSTPROCEDURAL STATES - Plan Acute Hypoxic Respiratory Failure 2/2 COVID Pneumonia -Symptoms 03/21, DX 03/25 w/ rapid antigen test in clinic -80% on RA per EMS, now 95% on HFNC. HR 120s. -CXR: diffuse mild bilateral covid-19 penumonia, small mild focal infiltrate in right base -WBC 13.3, Lactate 2.0, trop 0.023 -s/p 1L NS, 10mg decadron, IV Levaquin, 1mg/kg lovenox in ED - 6mg dexamethasone daily - Remdesivir 03/29 - Dulera inhaler BID History of Pulmonary Embolism -Diagnosed 03/17/2019. On Eliquis 5mg BID -Patient reports has missed several doses of eliquis, received loading dose of lovenox in ED, will resume home Eliquis for anticoagulation. Hypokalemia -K 3.3 -Replace and monitor Chronic back pain -Continue home meds HTN -Not currently on medication. Will monitor pressures. GERD -Not currently on meds. -Tums PRN PCP:Yared Diet: HH DVT PPx: Eliquis GI PPx: Not indicated Dispo: Stable, admit to telemetry inpatient. Addendum - Attending - Attending Attestation Date/Time: 03/29/20 [id number] I personally evaluated the patient and discussed the management with Dr. Her/Jose Ramon. I agree with the History, Examination, Assessment and Plan documented above with any addition or exceptions noted below. Patient with history of VTE and PE here with COVID related hypoxia. She will be admitted, HFNC and wean as tolerated. Steroids, Remdesevir, usual care. CXR overall appears fairly well. Continue to monitor and further mgmt pending clinical course.
[2020-03-29] MEDS ORDERED: Enoxaparin Sodium 100 MG/ML SYRINGE ONE (12:46)
[2020-03-29] MEDS ORDERED: Dexamethasone 10 MG/ML VIAL ONE (12:48)
[2020-03-29] MEDS ORDERED: Calcium Carbonate 500 MG ChewTAB PO PRN (13:33)
[2020-03-29] MEDS ORDERED: Ondansetron ODT 4 MG TAB PO PRN (13:33)
[2020-03-29] MEDS ORDERED: REMDESIVIR (EUA) 200 MG in Sodium Chloride 0.9% 250 ML 210 ML IV SCH (14:30)
[2020-03-29 14:50] VITALS: BMI 35.1
[2020-03-29] MEDS ORDERED: Potassium Chloride 20 MEQ TAB PO SCH (15:30)
[2020-03-29 15:34] LABS: Troponin I 0.021 ng/mL (< 0.028)
[2020-03-29] MEDS: Lactated Ringer's 1,000 ML IV SCH (17:19)
[2020-03-29] MEDS: Acetaminophen 325 MG TAB PO PRN ×2 (17:27→21:27)
[2020-03-29 18:07] LABS: Troponin I 0.015 ng/mL (< 0.028)
[2020-03-29] MEDS ORDERED: Mometasone 200 MCG/Formoterol 5 MCG 120 PUFF INHALER INH SCH (18:30)
[2020-03-29] MEDS: Apixaban 5 MG TAB PO SCH (20:54)
[2020-03-29] MEDS: Mometasone 200 MCG/Formoterol 5 MCG 120 PUFF INHALER INH SCH (20:54)
[2020-03-29] MEDS: Gabapentin 300 MG CAP PO SCH (20:55)
[2020-03-30 02:23] LABS: SARS-CoV-2 PCR by NAA DETECTED (NotDetected)
[2020-03-30] MEDS: Lactated Ringer's 1,000 ML IV SCH ×3 (02:24→18:54)
[2020-03-30] MEDS ORDERED: Acetaminophen/Codeine 30-300mg Tablet PO SCH (04:45)
[2020-03-30] MEDS: Mometasone 200 MCG/Formoterol 5 MCG 120 PUFF INHALER INH SCH ×2 (05:19→18:53)
[2020-03-30] MEDS: tiZANidine HCl 4 MG TAB PO PRN (05:19)
--- NOTE | 2020-03-30 05:35 | PDOC.FM ---
- Subjective Subjective: Ms. Newton is feeling SOB this morning although she appeared to be sleeping when I walked in. She is on HFNC 45L/38% and was SpO2 was in the mid-/upper-90s but quickly drops to 91% with a few words. She denies N/V/D. - Objective Vital Signs & Weight: Vital Signs (12 hours) Temp Pulse Resp BP Pulse Ox 03/30/20 04:28 99.1 F 131 H 36 H 109/81 96 03/30/20 02:56 96 03/29/20 23:00 99.9 F H 128 H 28 H 120/70 100 03/29/20 22:54 98 03/29/20 21:00 100.1 F H 115 H 26 H 132/82 97 03/29/20 18:35 98 Weight Weight 101.741 kg I&O: 03/28/20 03/29/20 03/30/20 06:59 06:59 06:59 Intake Total 490 Output Total 600 Balance -110 Result Diagrams: 03/30/20 05:12 03/30/20 05:12 Phys Exam - Physical Examination Constitutional: NAD Neck: supple, full ROM Respiratory: clear to auscultation bilateral Poor inspiratory effort, breaths fast and shallow Cardiovascular: RRR, no significant murmur Neurological: non-focal, moves all 4 limbs Psychiatric: normal affect, A&O x 3 Anxious Dx/Plan - Plan Plan: This is a 40F presenting to the ED for worsening Covid sxs. Acute Hypoxic Respiratory Failure 2/2 COVID Pneumonia - Symptoms 03/21, DX 03/25 w/ rapid antigen test in clinic - HFNC 40L/40%. Will attempt to wean as tolerated - Has continued to be tachycardic, tachypneic, and has had low-grade fevers - CXR: diffuse mild bilateral covid-19 pneumonia, small mild focal infiltrate in right base - WBC 13.3, Lactate 2.0, Procal 1.17 > 0.84, trop 0.023 > 0.015 - LDH 1061, Ferritin 299, CRP 28.25 c/w Covid, D-dimer 3.74 - 6mg dexamethasone daily, Remdesivir started 03/29 - Dulera inhaler BID, prn hydroxyzine for anxiety. Consider changing hydroxyzine for ativan if main issue is air hunger - am CBC, CMP History of Pulmonary Embolism - Diagnosed 03/17/2019. On Eliquis 5mg BID - Patient reports has missed several doses of eliquis, received loading dose of lovenox in ED, will resume home Eliquis for anticoagulation. - D-dimer 3.74. Elevation could be 2/2 Covid or repeat PE, but pt already on anticoagulation so there is nothing to do. Hypokalemia - K 3.3 > 2.9. Mg 1.7 - 40mEq IV KCl + 40mEq PO KCl - Repeat BMP this afternoon - Monitor with am CMP Hyperchloremic metabolic acidosis - Present on previous admissions. Suspect likely 2/2 undiagnosed RTA Chronic back pain - Continue home meds HTN - Not currently on medication. Will monitor pressures. GERD - Not currently on meds. - Tums PRN PCP:Yared Diet: HH DVT PPx: home Eliquis GI PPx: Not indicated IVF: LR 125mL/h Dispo: Stable, admit to telemetry inpatient. Monitor resp status and adjust HFNC as needed. Addendum - Attending - Attending Attestation Date/Time: 03/30/20 6224 I personally evaluated the patient and discussed the management with Dr. Avinash Boogie. I agree with the History, Examination, Assessment and Plan documented above with any addition or exceptions noted below. Patient here for acute hypoxic resp failure 2/2 COVID with history of VTE. Continue full anticoagulation, continue steroids, remdesevir, respiratory sup port. I suspect that a large component of her issues is anxiety given her low HFNC settings. Will work to get that under control, wean HFNC as tolerated. Needs K repletion. She has hyperchloremic metabolic acidosis that is chronic and present during previous hospitalization, continue to monitor.
[2020-03-30 05:47] LABS: #Lymphocytes 1.7 thou/uL (1.20-3.40); #Monocytes 0.7 thou/uL (0.11-0.59); #Neutrophils 10.8 thou/uL (1.40-6.50); %Basophils 0.3 % (0.0-1.0); %Eosinophils 0.1 % (0.0-10.0); %Lymphocytes 12.8 % (21.0-51.0); %Monocytes 5.4 % (0.0-10.0); %Neutrophils 81.5 % (42.0-75.0); Hemoglobin 12.1 g/dL (12.0-16.0); Mean Corpuscular HGB CONC 33.1 g/dL (32.0-36.0); Mean Corpuscular Hemoglobin 29.6 pg (27.0-31.0); Mean Corpuscular Volume 89.4 fL (78.0-98.0); Platelet Count 245 thou/uL (130-400); RBC Distribution Width 13.4 % (11.5-14.5); Red Blood Cell (RBC) Count 4.08 mill/uL (4.20-5.40); White Blood Cell (WBC) Count 13.3 thou/uL (4.8-10.8)
[2020-03-30 06:11] LABS: ALT (SGPT) 29 U/L (8-55); AST (SGOT) 37 U/L (5-34); Alkaline Phosphatase 103 U/L (40-110); Anion Gap 13 mmol/L (10-20); BUN (Urea Nitrogen) 7 mg/dL (7.0-18.7); Bilirubin, Total 0.3 mg/dL (0.2-1.2); Calc. Creatinine Clearance 167 mL/min (70-130); Calcium 8.5 mg/dL (7.8-10.44); Carbon Dioxide 10 mmol/L (22-29); Chloride 118 mmol/L (98-107); Globulin 3.5 g/dL (2.4-3.5); Glucose 108 mg/dL (70-105); Protein, Total 6.5 g/dL (6.0-8.3); Sodium 138 mmol/L (136-145)
[2020-03-30 06:17] LABS: Potassium 2.9 mmol/L (3.5-5.1)
[2020-03-30] MEDS ORDERED: Potassium Chloride 40 MEQ in Sodium Chloride 0.9% 250 ML 250 ML IVPB SCH (07:45)
[2020-03-30] MEDS: Apixaban 5 MG TAB PO SCH ×2 (08:05→21:00)
[2020-03-30] MEDS: Potassium Chloride 20 MEQ TAB PO SCH (08:05)
[2020-03-30] MEDS: Dexamethasone 4 mg/ml Vial SLOW IVP SCH (08:05)
[2020-03-30] MEDS: Gabapentin 300 MG CAP PO SCH ×3 (08:06→21:02)
[2020-03-30] MEDS: Venlafaxine HCl XR 75 MG CAP PO SCH (08:06)
[2020-03-30] MEDS: hydrOXYzine 10 MG TAB PO PRN ×2 (08:07→12:02)
[2020-03-30] MEDS ORDERED: Magnesium 2 GM/50 ML 2 GM in Premix Bag 1 BAG IVPB SCH (09:30)
[2020-03-30] MEDS: Lorazepam 0.5 MG TAB PO PRN ×2 (13:12→18:55)
[2020-03-30] MEDS: Acetaminophen 325 MG TAB PO PRN (13:12)
[2020-03-30] MEDS: REMDESIVIR (EUA) 100 MG in Sodium Chloride 0.9% 250 ML 230 ML IV SCH (14:38)
[2020-03-30 17:17] LABS: Potassium 3.6 mmol/L (3.5-5.1)
[2020-03-30] MEDS: Acetaminophen 325 MG TAB PO SCH ×2 (18:53→23:18)
[2020-03-30] MEDS: Ibuprofen 200 MG TAB PO SCH (21:01)
[2020-03-31] MEDS: Ibuprofen 200 MG TAB PO SCH ×5 (01:14→17:55)
[2020-03-31] MEDS: Lorazepam 0.5 MG TAB PO PRN ×3 (01:24→21:42)
[2020-03-31] MEDS: Lactated Ringer's 1,000 ML IV SCH ×2 (01:25→08:22)
[2020-03-31] MEDS: Acetaminophen 325 MG TAB PO SCH ×4 (03:20→15:15)
--- NOTE | 2020-03-31 05:40 | PDOC.FM ---
- Subjective Subjective: Resting comfortably in bed. No acute events overnight. Patient remains tachycardic, but appears tachy at baseline based on clinic notes. - Objective MAR Reviewed: Yes Vital Signs & Weight: Vital Signs (12 hours) Temp Pulse Resp BP Pulse Ox 03/31/20 03:55 98.6 F 120 H 28 H 113/55 L 97 03/31/20 02:41 100 03/31/20 01:00 98.3 F 112 H 30 H 103/61 96 03/30/20 20:15 98.3 F 126 H 26 H 121/73 99 03/30/20 19:18 93 L Weight Weight 101.741 kg I&O: 03/29/20 03/30/20 03/31/20 06:59 06:59 06:59 Intake Total 980 2125 Output Total 1550 401 Balance -570 1724 Result Diagrams: 03/31/20 05:30 03/31/20 05:30 Phys Exam - Physical Examination Constitutional: NAD HFNC Respiratory: no wheezing, clear to auscultation bilateral Tachycardic Gastrointestinal: soft, non-tender, positive bowel sounds Musculoskeletal: no edema Neurological: non-focal Dx/Plan - Plan Plan: Acute Hypoxic Respiratory Failure 2/2 COVID Pneumonia - Symptoms 03/21, DX 03/25 w/ rapid antigen test in clinic - HFNC 45/40, wean as tolerated - Has continued to be tachycardic, tachypneic, and has had low-grade fevers - CXR: diffuse mild bilateral covid-19 pneumonia, small mild focal infiltrate in right base - WBC 13.3, Lactate 2.0, Procal 1.17 > 0.84, trop 0.023 > 0.015 - LDH 1061, Ferritin 299, CRP 28.25 c/w Covid, D-dimer 3.74; will trend CRP - 6mg dexamethasone daily, Remdesivir started 03/29 - Dulera inhaler BID, prn hydroxyzine for anxiety, ativan added prn for anxiety History of Pulmonary Embolism - Diagnosed 03/17/2019. On Eliquis 5mg BID - missed several doses of eliquis, s/p loading dose of lovenox in ED, will resume home Eliquis for anticoagulation. - D-dimer 3.74. Elevation could be 2/2 Covid or repeat PEb; pt already on anticoagulation so no need for CTA Tachycardia - based on chart review, appears to be tachycardic at baseline (clinic notes show HR from 100-118) - will monitor Hypokalemia, improved - K 3.3 > 2.9 > 3.6 - ma.7 - Monitor with am CMP Hyperchloremic metabolic acidosis - Present on previous admissions. Suspect likely 2/2 undiagnosed RTA Chronic back pain - Continue home meds HTN - Not currently on medication. Will monitor pressures. GERD - Not currently on meds. - Tums PRN
[2020-03-31 06:12] LABS: #Eosinphils 0.1 thou/uL (0.0-0.7); #Monocytes 0.7 thou/uL (0.11-0.59); #Neutrophils 11.6 thou/uL (1.40-6.50); %Basophils 0.1 % (0.0-1.0); %Eosinophils 0.8 % (0.0-10.0); %Lymphocytes 13.6 % (21.0-51.0); %Monocytes 4.9 % (0.0-10.0); %Neutrophils 80.5 % (42.0-75.0); Mean Corpuscular HGB CONC 32.1 g/dL (32.0-36.0); Mean Corpuscular Hemoglobin 28.6 pg (27.0-31.0); Mean Corpuscular Volume 89.2 fL (78.0-98.0); Mean Platelet Volume 8.9 fL (7.4-10.4); Platelet Count 276 thou/uL (130-400); RBC Distribution Width 13.4 % (11.5-14.5); Red Blood Cell (RBC) Count 3.84 mill/uL (4.20-5.40); White Blood Cell (WBC) Count 14.4 thou/uL (4.8-10.8)
[2020-03-31] MEDS: Mometasone 200 MCG/Formoterol 5 MCG 120 PUFF INHALER INH SCH ×2 (06:30→17:48)
[2020-03-31 06:33] LABS: ALT (SGPT) 22 U/L (8-55); AST (SGOT) 22 U/L (5-34); Albumin 2.8 g/dL (3.5-5.0); Alkaline Phosphatase 93 U/L (40-110); Anion Gap 11 mmol/L (10-20); BUN (Urea Nitrogen) 13 mg/dL (7.0-18.7); Bilirubin, Total 0.3 mg/dL (0.2-1.2); Calc. Creatinine Clearance 182 mL/min (70-130); Calcium 8.3 mg/dL (7.8-10.44); Carbon Dioxide 17 mmol/L (22-29); Chloride 120 mmol/L (98-107); Globulin 3.2 g/dL (2.4-3.5); Glucose 102 mg/dL (70-105); Potassium 3.6 mmol/L (3.5-5.1); Sodium 144 mmol/L (136-145)
[2020-03-31] MEDS: Potassium Chloride 20 MEQ TAB PO SCH (08:21)
[2020-03-31] MEDS: Dexamethasone 4 mg/ml Vial SLOW IVP SCH (08:23)
[2020-03-31] MEDS: Apixaban 5 MG TAB PO SCH ×2 (08:23→21:45)
[2020-03-31] MEDS: Gabapentin 300 MG CAP PO SCH ×3 (08:23→21:42)
[2020-03-31] MEDS: Venlafaxine HCl XR 75 MG CAP PO SCH (08:24)
--- NOTE | 2020-03-31 13:20 | PQF ---
CLINICAL DOCUMENTATION CLARIFICATION FORM: Dear Dr. Tamia Dowling Date / Time: 03/31/20 Please exercise your independent, professional judgment in responding to the clarification form. Clinical indicators are provided on the bottom of this form for your review. Please check appropriate box(es): [ ] Sepsis due to: [ ] Severe sepsis with associated acute organ dysfunction: Acute Respiratory Failure [ ] Localized infection without sepsis [ ] SIRS due to non-infectious process (please specify etiology) [ ] with organ dysfunction [ ] without organ dysfunction [X] Other diagnosis : COVID PNA [ ] Unable to determine In addition, please specify: Present on Admission (POA): [X ] Yes [ ] No [ ] Unable to determine For continuity of documentation, please document condition throughout progress notes and discharge summary. Thank You. To be completed by CDI/Coding staff for physician review: CLINICAL INDICATORS - SIGNS / SYMPTOMS / LABS / RESULTS AND LOCATION IN MR ER Documentation 03/29: SEPSIS Activation 1152; EMS RA 80% > NRB 96%; HR 123, RR 24; Pt reports subjective fevers at home ER FINAL: Acute hypoxic resp fail, COVID Pneumonia LABS 03/29: WBC 13.3; Neutrophils 86.6%, Lactic acid 2.0, Procalcitonin 1.17 > 0.84 VITAL SIGNS: T 100.1 (EMR, 03/29, 2100) RISK FACTORS / RESULTS AND LOCATION IN MR COVID 19 Pneumonia (H&P, 03/29) Acute Hypoxic respiratory failure (H&P, 03/29) Metabolic Acidosis (PN, 03/31) TREATMENTS / RESULTS AND LOCATION IN MR High flow 02 (EMR, 02 record 03/29 present) IV Antibiotic (IV Levaquin, ED 03/29) IVF (1L NS, ED 03/29) Thank you! CDS Signature: Negra Colby, RN, BSN Phone #: [phone] Date: 03/31/20 This is a permanent part of the Medical Record [facility]
[2020-03-31] MEDS: REMDESIVIR (EUA) 100 MG in Sodium Chloride 0.9% 250 ML 230 ML IV SCH (15:14)
--- NOTE | 2020-03-31 17:24 | EKG ---
Test Reason : STAT Blood Pressure : / mmHG Vent. Rate : 126 BPM Atrial Rate : 126 BPM P-R Int : 180 ms QRS Dur : 082 ms QT Int : 414 ms P-R-T Axes : 000 030 032 degrees QTc Int : 599 ms Sinus tachycardia Nonspecific ST and T wave abnormality Abnormal ECG When compared with ECG of 29-MAR-2020 11:22, (Unconfirmed) No significant change was found Confirmed by DR. Tiara CLARK ([id number]) on 03/31/2020 5:24:00 PM Referred By: Confirmed By:DR. Tiara CLARK
[2020-03-31] MEDS: Acetaminophen/Codeine 30-300mg Tablet PO PRN (17:47)
[2020-03-31] MEDS: tiZANidine HCl 4 MG TAB PO PRN (21:42)
[2020-04-01] MEDS: Mometasone 200 MCG/Formoterol 5 MCG 120 PUFF INHALER INH SCH ×2 (05:14→17:45)
[2020-04-01] MEDS: Acetaminophen/Codeine 30-300mg Tablet PO PRN ×2 (05:15→14:33)
[2020-04-01 05:25] LABS: ALT (SGPT) 18 U/L (8-55); AST (SGOT) 17 U/L (5-34); Albumin 2.9 g/dL (3.5-5.0); Alkaline Phosphatase 103 U/L (40-110); Anion Gap 15 mmol/L (10-20); BUN (Urea Nitrogen) 11 mg/dL (7.0-18.7); Bilirubin, Total 0.2 mg/dL (0.2-1.2); Calc. Creatinine Clearance 191 mL/min (70-130); Calcium 8.4 mg/dL (7.8-10.44); Carbon Dioxide 15 mmol/L (22-29); Chloride 117 mmol/L (98-107); Globulin 3.4 g/dL (2.4-3.5); Glucose 98 mg/dL (70-105); Potassium 3.8 mmol/L (3.5-5.1); Protein, Total 6.3 g/dL (6.0-8.3); Sodium 143 mmol/L (136-145)
[2020-04-01 05:36] LABS: Band 3 % (5-11); Eosinophils 3 % (0-10); Hemoglobin 11.1 g/dL (12.0-16.0); Lymphocytes 6 % (21-51); MDiff Complete? YES; Mean Corpuscular HGB CONC 32.6 g/dL (32.0-36.0); Mean Corpuscular Hemoglobin 29.1 pg (27.0-31.0); Mean Corpuscular Volume 89.3 fL (78.0-98.0); Mean Platelet Volume 8.3 fL (7.4-10.4); Monocytes 9 % (0-10); Myelocyte 1 % (0-0); Neutrophil 78 % (42-75); Platelet Count 271 thou/uL (130-400); RBC Distribution Width 13.4 % (11.5-14.5); Red Blood Cell (RBC) Count 3.81 mill/uL (4.20-5.40); White Blood Cell (WBC) Count 15.7 thou/uL (4.8-10.8)
--- NOTE | 2020-04-01 06:01 | PDOC.FM ---
- Subjective Subjective: Reports that she does not feel well this morning. She has a poor appetite but is able to drink liquids. Her pain is controlled with her home Tylenol 3. She remains tachycardic and on HFNC. Denies CP, abdominal pain. - Objective MAR Reviewed: Yes Vital Signs & Weight: Vital Signs (12 hours) Temp Pulse Resp BP Pulse Ox 04/01/20 04:42 100.7 F H 127 H 32 H 118/72 94 L 04/01/20 01:33 94 L 03/31/20 23:26 94 L 03/31/20 23:16 98.1 F 118 H 32 H 129/65 90 L 03/31/20 19:44 92 L 03/31/20 19:40 98.7 F 119 H 36 H 109/68 93 L Weight Weight 101.741 kg I&O: 03/30/20 03/31/20 04/01/20 06:59 06:59 06:59 Intake Total 980 2432 850 Output Total 1550 826 400 Balance -570 1606 450 Result Diagrams: 04/01/20 04:26 04/01/20 04:26 EKG Reviewed by me: Yes (ST 120-130) Phys Exam - Physical Examination Constitutional: NAD HFNC Respiratory: no wheezing, clear to auscultation bilateral Cardiovascular: RRR Gastrointestinal: soft, non-tender, positive bowel sounds Musculoskeletal: no edema Neurological: non-focal Psychiatric: normal affect Dx/Plan - Plan Plan: Acute Hypoxic Respiratory Failure 2/2 COVID Pneumonia - Symptoms 03/21, DX 03/25 w/ rapid antigen test in clinic - HFNC 45/40, wean as tolerated - Has continued to be tachycardic, tachypneic, and has had low-grade fevers - CXR: diffuse mild bilateral covid-19 pneumonia, small mild focal infiltrate in right base - WBC 13.3, Lactate 2.0, Procal 1.17 > 0.84, trop 0.023 > 0.015 - LDH 1061, Ferritin 299, CRP 28.25 c/w Covid, D-dimer 3.74; will trend CRP - 6mg dexamethasone daily, Remdesivir started 03/29 - Dulera inhaler BID, prn hydroxyzine for anxiety, ativan added prn for anxiety - patient had a fever overnight, will obtain procal and consider starting antibiotics; if patient fevers again, obtain blood cultures History of Pulmonary Embolism - Diagnosed 03/17/2019. On Eliquis 5mg BID - missed several doses of eliquis, s/p loading dose of lovenox in ED, on home Eliquis for anticoagulation. - D-dimer 3.74. Elevation could be 2/2 Covid or repeat PEb; pt already on anticoagulation so no need for CTA Tachycardia - based on chart review, appears to be tachycardic at baseline (clinic notes show HR from 100-118) - will monitor Hypokalemia, improved - K 3.3 > 2.9 > 3.6 > 3.8 - ma.7 - Monitor with am CMP Hyperchloremic metabolic acidosis - Present on previous admissions. Suspect likely 2/2 undiagnosed RTA Chronic back pain - Continue home meds HTN - Not currently on medication. Will monitor pressures. GERD - Not currently on meds. - Tums PRN
[2020-04-01] MEDS: Potassium Chloride 20 MEQ TAB PO SCH (09:15)
[2020-04-01] MEDS: Venlafaxine HCl XR 75 MG CAP PO SCH (09:15)
[2020-04-01] MEDS: Dexamethasone 4 mg/ml Vial SLOW IVP SCH (09:15)
[2020-04-01] MEDS: Apixaban 5 MG TAB PO SCH ×2 (09:16→21:30)
[2020-04-01] MEDS: Gabapentin 300 MG CAP PO SCH ×3 (09:16→21:30)
[2020-04-01] MEDS: REMDESIVIR (EUA) 100 MG in Sodium Chloride 0.9% 250 ML 230 ML IV SCH (13:55)
[2020-04-01] MEDS: Lorazepam 0.5 MG TAB PO PRN (21:30)
[2020-04-02] MEDS ORDERED: Acetaminophen/Codeine 30-300mg Tablet ONE ×2 (02:00)
[2020-04-02 07:24] LABS: ALT (SGPT) 24 U/L (8-55); AST (SGOT) 21 U/L (5-34); Albumin 2.8 g/dL (3.5-5.0); Alkaline Phosphatase 98 U/L (40-110); Anion Gap 11 mmol/L (10-20); BUN (Urea Nitrogen) 11 mg/dL (7.0-18.7); Bilirubin, Total 0.2 mg/dL (0.2-1.2); Calc. Creatinine Clearance 188 mL/min (70-130); Calcium 7.9 mg/dL (7.8-10.44); Carbon Dioxide 18 mmol/L (22-29); Chloride 114 mmol/L (98-107); Globulin 3.3 g/dL (2.4-3.5); Glucose 92 mg/dL (70-105); Potassium 3.4 mmol/L (3.5-5.1); Protein, Total 6.1 g/dL (6.0-8.3); Sodium 140 mmol/L (136-145)
[2020-04-02] MEDS: Mometasone 200 MCG/Formoterol 5 MCG 120 PUFF INHALER INH SCH ×2 (07:42→22:02)
[2020-04-02] MEDS: Potassium Chloride 20 MEQ TAB PO SCH (07:42)
[2020-04-02] MEDS: Apixaban 5 MG TAB PO SCH ×2 (07:42→22:01)
[2020-04-02] MEDS: Gabapentin 300 MG CAP PO SCH ×3 (07:43→22:01)
[2020-04-02] MEDS: Dexamethasone 4 mg/ml Vial SLOW IVP SCH (07:43)
[2020-04-02] MEDS: Venlafaxine HCl XR 75 MG CAP PO SCH (07:44)
--- NOTE | 2020-04-02 07:44 | PDOC.FM ---
- Subjective Subjective: Patient resting comfortably in bed, on HFNC. Reports feeling better than she did yesterday. Denies TREJO, CP, Abd pain. No concerns this morning. - Objective MAR Reviewed: Yes Vital Signs & Weight: Vital Signs (12 hours) Temp Pulse Resp BP Pulse Ox 04/02/20 00:46 97 04/02/20 00:39 98.3 F 100 20 114/71 96 04/01/20 19:46 97.8 F 94 20 125/77 98 Weight Weight 101.741 kg I&O: 04/01/20 04/02/20 04/03/20 06:59 06:59 06:59 Intake Total 850 910 Output Total 400 750 Balance 450 160 Result Diagrams: 04/01/20 04:26 04/02/20 03:30 EKG Reviewed by me: Yes (RADHA) Phys Exam - Physical Examination Constitutional: NAD HFNC mild inspiratory wheezes heard at the bases Cardiovascular: RRR Gastrointestinal: soft, non-tender Musculoskeletal: no edema Neurological: non-focal, moves all 4 limbs Psychiatric: normal affect Dx/Plan - Plan Plan: Acute Hypoxic Respiratory Failure 2/2 COVID Pneumonia - Symptoms 03/21, DX 03/25 w/ rapid antigen test in clinic - HFNC 45/40, wean as tolerated - Has continued to be tachycardic, tachypneic, and has had low-grade fevers - CXR: diffuse mild bilateral covid-19 pneumonia, small mild focal infiltrate in right base - WBC 13.3, Lactate 2.0, Procal 1.17 > 0.84, trop 0.023 > 0.015 - LDH 1061, Ferritin 299, CRP 28.25 c/w Covid, D-dimer 3.74; will trend CRP - 6mg dexamethasone daily, Remdesivir started 03/30 (day 4 today) - Dulera inhaler BID, prn hydroxyzine for anxiety, ativan added prn for anxiety - patient had a fever of 100.7 on 04/01, procal: 0.11; if patient fevers again, obtain blood cultures History of Pulmonary Embolism - Diagnosed 03/17/2019. On Eliquis 5mg BID - missed several doses of eliquis, s/p loading dose of lovenox in ED, on home Eliquis for anticoagulation. - D-dimer 3.74. Elevation could be 2/2 Covid or repeat PEb; pt already on anticoagulation so no need for CTA Tachycardia - based on chart review, appears to be tachycardic at baseline (clinic notes show HR from 100-118) - will monitor Hypokalemia, improved - K: 3.4, will replace as needed - Monitor with am CMP Hyperchloremic metabolic acidosis - Present on previous admissions. Suspect likely 2/2 undiagnosed RTA Chronic back pain - Continue home meds HTN - Not currently on medication. Will monitor pressures. GERD - Not currently on meds. - Tums PRN
[2020-04-02] MEDS: Acetaminophen/Codeine 30-300mg Tablet PO PRN ×3 (08:25→22:00)
[2020-04-02 09:56] LABS: Band 10 % (5-11); Eosinophils 2 % (0-10); Hemoglobin 11.1 g/dL (12.0-16.0); Lymphocytes 13 % (21-51); MDiff Complete? YES; Mean Corpuscular HGB CONC 31.7 g/dL (32.0-36.0); Mean Corpuscular Hemoglobin 28.5 pg (27.0-31.0); Mean Corpuscular Volume 89.9 fL (78.0-98.0); Mean Platelet Volume 8.2 fL (7.4-10.4); Monocytes 6 % (0-10); Neutrophil 68 % (42-75); Platelet Count 213 thou/uL (130-400); Platelet Morphology Comment Appears Adequate; Polychromasia SLIGHT = 2-3 cells (100X) (0-2/hpf); RBC Distribution Width 13.5 % (11.5-14.5); Reactive Lymphocytes 1 % (0-10); Red Blood Cell (RBC) Count 3.91 mill/uL (4.20-5.40); White Blood Cell (WBC) Count 17.1 thou/uL (4.8-10.8)
[2020-04-02] MEDS ORDERED: Potassium Chloride 20 MEQ TAB PO SCH (12:45)
[2020-04-02] MEDS: Lorazepam 0.5 MG TAB PO PRN ×2 (13:00→22:01)
[2020-04-02] MEDS: REMDESIVIR (EUA) 100 MG in Sodium Chloride 0.9% 250 ML 230 ML IV SCH (14:14)
[2020-04-02] MEDS: tiZANidine HCl 4 MG TAB PO PRN (22:01)
--- NOTE | 2020-04-03 05:46 | PDOC.FM ---
- Subjective Subjective: Felling better today. RT able to decrease oxygen requirement. Patient denies pain. No events overnight. Denies questions or concerns. - Objective MAR Reviewed: Yes Vital Signs & Weight: Vital Signs (12 hours) Temp Pulse Resp BP Pulse Ox 04/03/20 04:00 99.2 F 78 20 107/66 98 04/03/20 03:41 98 04/03/20 00:00 98.0 F 78 22 H 92/65 98 04/02/20 19:50 98.1 F 93 22 H 107/81 98 Weight Weight 101.741 kg I&O: 04/01/20 04/02/20 04/03/20 06:59 06:59 06:59 Intake Total 850 910 600 Output Total 400 750 400 Balance 450 160 200 Result Diagrams: 04/03/20 04:45 04/03/20 04:45 EKG Reviewed by me: Yes (SR) Phys Exam - Physical Examination Constitutional: NAD HFNC Respiratory: no wheezing, clear to auscultation bilateral Cardiovascular: RRR Gastrointestinal: soft, non-tender, positive bowel sounds Musculoskeletal: no edema Neurological: moves all 4 limbs Psychiatric: normal affect Dx/Plan - Plan Plan: Acute Hypoxic Respiratory Failure 04/01 COVID Pneumonia - Symptoms 03/21, DX 03/25 w/ rapid antigen test in clinic - HFNC 45/40, hoping to wean to NC - Has continued to be tachycardic, tachypneic, and has had low-grade fevers - CXR: diffuse mild bilateral covid-19 pneumonia, small mild focal infiltrate in right base - WBC 13.3, Lactate 2.0, Procal 1.17 > 0.84, trop 0.023 > 0.015 - LDH 1061, Ferritin 299, CRP 28.25 c/w Covid, D-dimer 3.74; will trend CRP - 6mg dexamethasone daily, s/p Remdesivir started 03/29 - Dulera inhaler BID, prn hydroxyzine for anxiety, - ativan prn switched to scheduled Klonipin with hopes of weaning patient to NC - patient had a fever of 100.7 on 04/01, procal: 0.11; if patient fevers again, obtain blood cultures History of Pulmonary Embolism - Diagnosed 03/17/2019. On Eliquis 5mg BID - missed several doses of eliquis, s/p loading dose of lovenox in ED, on home Eliquis for anticoagulation. - D-dimer 3.74. Elevation could be 2/2 Covid or repeat PEb; pt already on anticoagulation so no need for CTA Tachycardia, resolved - based on chart review, appears to be tachycardic at baseline (clinic notes show HR from 100-118) - will monitor Hypokalemia - K: 3.8, will replace as needed - Monitor with am CMP Hyperchloremic metabolic acidosis - Present on previous admissions. Suspect likely 2/2 undiagnosed RTA Chronic back pain - Continue home meds HTN - Not currently on medication. Will monitor pressures. GERD - Not currently on meds. - Tums PRN Dispo: will transfer to medical for further monitoring, attempt to wean to NC
[2020-04-03 06:05] LABS: ALT (SGPT) 32 U/L (8-55); AST (SGOT) 21 U/L (5-34); Albumin 3.1 g/dL (3.5-5.0); Alkaline Phosphatase 95 U/L (40-110); Anion Gap 15 mmol/L (10-20); BUN (Urea Nitrogen) 10 mg/dL (7.0-18.7); Bilirubin, Total 0.3 mg/dL (0.2-1.2); Calc. Creatinine Clearance 179 mL/min (70-130); Calcium 8.4 mg/dL (7.8-10.44); Carbon Dioxide 18 mmol/L (22-29); Chloride 111 mmol/L (98-107); Globulin 3.6 g/dL (2.4-3.5); Glucose 91 mg/dL (70-105); Potassium 3.8 mmol/L (3.5-5.1); Protein, Total 6.7 g/dL (6.0-8.3); Sodium 140 mmol/L (136-145)
[2020-04-03] MEDS: Mometasone 200 MCG/Formoterol 5 MCG 120 PUFF INHALER INH SCH ×2 (06:10→18:08)
[2020-04-03 06:22] LABS: Band 4 % (5-11); Eosinophils 4 % (0-10); Hemoglobin 11.9 g/dL (12.0-16.0); Lymphocytes 22 % (21-51); MDiff Complete? YES; Mean Corpuscular HGB CONC 32.2 g/dL (32.0-36.0); Mean Corpuscular Hemoglobin 29.1 pg (27.0-31.0); Mean Corpuscular Volume 90.3 fL (78.0-98.0); Mean Platelet Volume 8.1 fL (7.4-10.4); Monocytes 6 % (0-10); Myelocyte 3 % (0-0); Neutrophil 61 % (42-75); Platelet Count 254 thou/uL (130-400); RBC Distribution Width 13.6 % (11.5-14.5); Red Blood Cell (RBC) Count 4.08 mill/uL (4.20-5.40); White Blood Cell (WBC) Count 16.9 thou/uL (4.8-10.8)
[2020-04-03] MEDS: Dexamethasone 4 mg/ml Vial SLOW IVP SCH (08:00)
[2020-04-03] MEDS: Apixaban 5 MG TAB PO SCH ×2 (08:00→20:39)
[2020-04-03] MEDS: Potassium Chloride 20 MEQ TAB PO SCH (08:00)
[2020-04-03] MEDS: Gabapentin 300 MG CAP PO SCH ×3 (08:01→20:38)
[2020-04-03] MEDS: Venlafaxine HCl XR 75 MG CAP PO SCH (08:01)
[2020-04-03] MEDS: Acetaminophen/Codeine 30-300mg Tablet PO PRN ×3 (11:27→23:51)
[2020-04-03] MEDS: tiZANidine HCl 4 MG TAB PO PRN ×2 (16:57→23:50)
[2020-04-03] MEDS: clonazePAM 0.5 MG TAB PO SCH (20:39)
[2020-04-04] MEDS: Mometasone 200 MCG/Formoterol 5 MCG 120 PUFF INHALER INH SCH ×2 (05:39→17:59)
[2020-04-04 06:13] LABS: ALT (SGPT) 36 U/L (8-55); AST (SGOT) 20 U/L (5-34); Albumin 3.2 g/dL (3.5-5.0); Alkaline Phosphatase 96 U/L (40-110); Anion Gap 16 mmol/L (10-20); BUN (Urea Nitrogen) 12 mg/dL (7.0-18.7); Bilirubin, Total 0.2 mg/dL (0.2-1.2); Calc. Creatinine Clearance 185 mL/min (70-130); Calcium 8.2 mg/dL (7.8-10.44); Carbon Dioxide 18 mmol/L (22-29); Chloride 109 mmol/L (98-107); Globulin 3.6 g/dL (2.4-3.5); Glucose 96 mg/dL (70-105); Potassium 3.9 mmol/L (3.5-5.1); Protein, Total 6.8 g/dL (6.0-8.3); Sodium 139 mmol/L (136-145)
[2020-04-04 06:46] LABS: Band 5 % (5-11); Eosinophils 2 % (0-10); Hemoglobin 12.6 g/dL (12.0-16.0); Lymphocytes 19 % (21-51); MDiff Complete? YES; Mean Corpuscular HGB CONC 32.4 g/dL (32.0-36.0); Mean Corpuscular Hemoglobin 29.1 pg (27.0-31.0); Mean Corpuscular Volume 89.5 fL (78.0-98.0); Mean Platelet Volume 8.2 fL (7.4-10.4); Metamyelocyte 1 % (0-0); Monocytes 6 % (0-10); Neutrophil 67 % (42-75); Platelet Count 264 thou/uL (130-400); Platelet Morphology Comment Appears Adequate; RBC Distribution Width 13.6 % (11.5-14.5); Red Blood Cell (RBC) Count 4.32 mill/uL (4.20-5.40); White Blood Cell (WBC) Count 15.7 thou/uL (4.8-10.8)
--- NOTE | 2020-04-04 06:52 | PDOC.FM ---
- Subjective Subjective: Feeling better from a COVID stand point. Now on NC. Reports that she is eating better. Reports dental pain and has concerns that her recent extraction is infected. She is also experiencing some nausea but no vomitting. She denies CP, abdominal pain. - Objective MAR Reviewed: Yes Vital Signs & Weight: Vital Signs (12 hours) Temp Pulse Resp BP Pulse Ox 04/04/20 00:00 98.6 F 100 20 100/70 95 04/03/20 21:47 96 04/03/20 19:30 98.4 F 90 20 97/67 96 Weight Weight 101.741 kg I&O: 04/02/20 04/03/20 04/04/20 06:59 06:59 06:59 Intake Total 417 303 3255 Output Total 750 400 300 Balance 160 200 950 Result Diagrams: 04/04/20 05:14 04/04/20 05:14 Phys Exam - Physical Examination Constitutional: NAD HEENT: moist MMs purulent discharge from left upper molar extraction site Neck: supple, full ROM Respiratory: no wheezing, clear to auscultation bilateral Cardiovascular: RRR Gastrointestinal: soft, non-tender, positive bowel sounds Musculoskeletal: no edema Neurological: non-focal, moves all 4 limbs Psychiatric: normal affect Skin: no rash Dx/Plan - Plan Plan: Acute Hypoxic Respiratory Failure 2/2 COVID Pneumonia - Symptoms 03/21, DX 03/25 w/ rapid antigen test in clinic - HFNC >> NC - CXR: diffuse mild bilateral covid-19 pneumonia, small mild focal infiltrate in right base - WBC 13.3, Lactate 2.0, Procal 1.17 > 0.84, trop 0.023 > 0.015 - LDH 1061, Ferritin 299, CRP 28.25 c/w Covid, D-dimer 3.74; will trend CRP - 6mg dexamethasone daily, s/p Remdesivir started 03/29 - Dulera inhaler BID, prn hydroxyzine for anxiety, - scheduled Klonipin - afebrile since 04/01 - transferred to medical on 04/03 History of Pulmonary Embolism - Diagnosed 03/17/2019. On Eliquis 5mg BID - missed several doses of eliquis, s/p loading dose of lovenox in ED, on home Eliquis for anticoagulation. - D-dimer 3.74. Elevation could be 2/2 Covid or repeat PEb; pt already on anticoagulation so no need for CTA Recent Dental Extraction - continued home pain medication - patient is tolerating PO intake - afebrile but purulent discharge found on exam - consider antibiotics Tachycardia, resolved - based on chart review, appears to be tachycardic at baseline (clinic notes esha w HR from 100-118) - will monitor Hypokalemia - K: 3.9, will replace as needed - Monitor with am CMP Hyperchloremic metabolic acidosis - Present on previous admissions. Suspect likely 2/2 undiagnosed RTA Chronic back pain - Continue home meds HTN - Not currently on medication. - patient has been normotensive throughout her hospital stay GERD - Not currently on meds. - Tums PRN Dispo: continue to wean O2 as tolerated, continue steroids
[2020-04-04] MEDS: clonazePAM 0.5 MG TAB PO SCH ×2 (07:59→20:11)
[2020-04-04] MEDS: Venlafaxine HCl XR 75 MG CAP PO SCH (07:59)
[2020-04-04] MEDS: Apixaban 5 MG TAB PO SCH ×2 (08:00→20:11)
[2020-04-04] MEDS: Potassium Chloride 20 MEQ TAB PO SCH (08:00)
[2020-04-04] MEDS: Gabapentin 300 MG CAP PO SCH ×3 (08:01→20:11)
[2020-04-04] MEDS: Dexamethasone 4 mg/ml Vial SLOW IVP SCH (08:02)
[2020-04-04] MEDS: Acetaminophen/Codeine 30-300mg Tablet PO PRN ×3 (08:18→20:26)
[2020-04-04] MEDS ORDERED: metroNIDAZOLE 500 MG TAB PO SCH (10:00)
[2020-04-04] MEDS ORDERED: Clindamycin 150 MG CAP PO SCH (14:00)
[2020-04-04] MEDS: tiZANidine HCl 4 MG TAB PO PRN ×2 (16:57→23:23)
[2020-04-04] MEDS: metroNIDAZOLE 500 MG TAB PO SCH (20:12)
[2020-04-05 05:40] LABS: #Basophils 0.1 thou/uL (0.0-0.2); #Eosinphils 0.1 thou/uL (0.0-0.7); #Lymphocytes 3.8 thou/uL (1.20-3.40); #Monocytes 1.2 thou/uL (0.11-0.59); #Neutrophils 10.2 thou/uL (1.40-6.50); %Basophils 0.3 % (0.0-1.0); %Eosinophils 0.4 % (0.0-10.0); %Monocytes 7.8 % (0.0-10.0); %Neutrophils 66.4 % (42.0-75.0); Hemoglobin 12.8 g/dL (12.0-16.0); Mean Corpuscular HGB CONC 30.8 g/dL (32.0-36.0); Mean Corpuscular Hemoglobin 27.5 pg (27.0-31.0); Mean Corpuscular Volume 89.5 fL (78.0-98.0); Mean Platelet Volume 8.1 fL (7.4-10.4); Platelet Count 320 thou/uL (130-400); RBC Distribution Width 13.7 % (11.5-14.5); Red Blood Cell (RBC) Count 4.64 mill/uL (4.20-5.40); White Blood Cell (WBC) Count 15.3 thou/uL (4.8-10.8)
--- NOTE | 2020-04-05 05:50 | PDOC.FM ---
- Subjective Subjective: Patient resting comfortably in bed. Not currently requiring supplemental O2, but often desats with exertion and requires minimal O2 via NC (1-3L). She reports dental pain that improves with medication. She is tolerating PO intake and feeling much better. She reports that her home O2 has been arranged and that she is ready to go home. Denies CP, TREJO, Abdominal pain. - Objective MAR Reviewed: Yes Vital Signs & Weight: Vital Signs (12 hours) Temp Pulse Resp BP Pulse Ox 04/04/20 22:14 96 04/04/20 20:00 98.4 F 82 18 109/76 94 L Weight Weight 101.741 kg I&O: 04/03/20 04/04/20 04/05/20 06:59 06:59 06:59 Intake Total 600 1250 Output Total 400 300 Balance 200 950 Result Diagrams: 04/05/20 05:26 04/05/20 05:26 Phys Exam - Physical Examination Constitutional: NAD HEENT: moist MMs Neck: supple, full ROM Respiratory: no wheezing, clear to auscultation bilateral Cardiovascular: RRR Gastrointestinal: soft, non-tender, positive bowel sounds Musculoskeletal: no edema Neurological: non-focal, moves all 4 limbs Psychiatric: normal affect Dx/Plan - Plan Plan: Acute Hypoxic Respiratory Failure 2/2 COVID Pneumonia - Symptoms 03/21, DX 03/25 w/ rapid antigen test in clinic - HFNC >> NC, alternates between NC and RA as she often desats with minimal exertion; home O2 being arranged - CXR: diffuse mild bilateral covid-19 pneumonia, small mild focal infiltrate in right base - WBC 13.3, Lactate 2.0, Procal 1.17 > 0.84, trop 0.023 > 0.015 - LDH 1061, Ferritin 299, CRP 28.25 c/w Covid, D-dimer 3.74; will trend CRP - 6mg dexamethasone daily, s/p Remdesivir started 03/29 - Dulera inhaler BID, prn hydroxyzine for anxiety, scheduled Klonipin History of Pulmonary Embolism - Diagnosed 03/17/2019. On Eliquis 5mg BID - on home Eliquis for anticoagulation. - D-dimer 3.74. Elevation could be 2/2 Covid or repeat PEb; pt already on anticoagulation so no need for CTA Recent Dental Extraction - continued home pain medication, tolerating PO intake - afebrile but purulent discharge found on exam - started on levofloxacin and metronidazole (2/5) Tachycardia, resolved Hypokalemia, resolved Hyperchloremic metabolic acidosis - Present on previous admissions. Suspect likely 2/2 undiagnosed RTA Chronic back pain - Continue home meds HTN - Not currently on medication. - patient has been normotensive throughout her hospital stay GERD - Not currently on meds. - Tums PRN Dispo: will likely DC home pending home O2 Addendum - Attending - Attending Attestation Date/Time: 04/05/20 0113 I personally evaluated the patient and discussed the management with Dr. Dowling. I agree with the History, Examination, Assessment and Plan documented above with any addition or exceptions noted below.
[2020-04-05 06:06] LABS: ALT (SGPT) 38 U/L (8-55); AST (SGOT) 20 U/L (5-34); Albumin 3.4 g/dL (3.5-5.0); Alkaline Phosphatase 93 U/L (40-110); Anion Gap 17 mmol/L (10-20); BUN (Urea Nitrogen) 13 mg/dL (7.0-18.7); Bilirubin, Total 0.3 mg/dL (0.2-1.2); Calc. Creatinine Clearance 185 mL/min (70-130); Calcium 8.5 mg/dL (7.8-10.44); Carbon Dioxide 16 mmol/L (22-29); Chloride 107 mmol/L (98-107); Globulin 3.7 g/dL (2.4-3.5); Glucose 105 mg/dL (70-105); Potassium 3.8 mmol/L (3.5-5.1); Protein, Total 7.1 g/dL (6.0-8.3); Sodium 136 mmol/L (136-145)
[2020-04-05] MEDS: Acetaminophen/Codeine 30-300mg Tablet PO PRN ×2 (06:06→11:32)
[2020-04-05] MEDS: tiZANidine HCl 4 MG TAB PO PRN (06:06)
[2020-04-05] MEDS: Mometasone 200 MCG/Formoterol 5 MCG 120 PUFF INHALER INH SCH (07:03)
[2020-04-05] MEDS: metroNIDAZOLE 500 MG TAB PO SCH (07:51)
[2020-04-05] MEDS: Venlafaxine HCl XR 75 MG CAP PO SCH (07:52)
[2020-04-05] MEDS: Gabapentin 300 MG CAP PO SCH (07:52)
[2020-04-05] MEDS: Potassium Chloride 20 MEQ TAB PO SCH (07:52)
[2020-04-05] MEDS: clonazePAM 0.5 MG TAB PO SCH (07:53)
[2020-04-05] MEDS: Dexamethasone 4 mg/ml Vial SLOW IVP SCH (07:53)
[2020-04-05] MEDS: Apixaban 5 MG TAB PO SCH (07:53)
[2020-04-05] MEDS ORDERED: Dexamethasone 4 MG TAB PO SCH (09:00)
[2020-04-05 13:27] VITALS: TEMP 98.7
[2020-04-05 13:36] VITALS: BP 115/79
--- NOTE | 2020-04-05 20:35 | DIS ---
DATE OF ADMISSION: 03/29/2020 DATE OF DISCHARGE: 04/05/2020 RESIDENT: Tamia Dowling MD ADMITTING ATTENDING: Sherif Burton MD DISCHARGE ATTENDING: Meir Corley MD CONSULTS: Case Management. REPORTS/IMAGES: Chest x-ray, evidence for diffuse mild bilateral COVID-19 pneumonia. PRIMARY DIAGNOSES: 1. Acute hypoxic respiratory failure secondary to COVID pneumonia. 2. COVID pneumonia. SECONDARY DIAGNOSES: 1. History of pulmonary embolism. 2. Dental infection, status post dental extraction. 3. Tachycardia. 4. Hypokalemia. 5. Hyperchloremic metabolic acidosis. 6. Chronic back pain. 7. Gastroesophageal reflux disease. DISCHARGE MEDICATIONS: 1. Venlafaxine 150 mg p.o. q.a.m. 2. Gabapentin 300 mg t.i.d. 3. Zanaflex 4 mg p.o. t.i.d. p.r.n. 4. Acetaminophen with codeine 1 tab p.o. q.6 hours p.r.n. 5. Eliquis 5 mg p.o. b.i.d. 6. Chantix 1 mg p.o. b.i.d. 7. Seroquel 400 mg p.o. at bedtime. 8. Ibuprofen 800 mg p.o. q.8 hours p.r.n. 9. Metronidazole 500 mg p.o. b.i.d. for 13 more days. 10. Levaquin 500 mg p.o. daily for 13 more days. DISCONTINUED MEDICATIONS: None. HISTORY OF PRESENT ILLNESS AND HOSPITAL COURSE: The patient is a 40-year-old female who was brought to the ER by EMS for evaluation of worsening COVID symptoms. Her symptoms began on 03/21/2020 with cough, loss of taste and smell, congestion, and shortness of breath. She was seen at [facility] on 03/25 and was diagnosed with COVID with rapid antigen test and sent home with ER precautions and symptom management instructions. Prior to coming to the ER, her symptoms of shortness of breath significantly worsened and then she felt like she was struggling to breathe. When EMS arrived, her O2 saturations were reportedly 80% on room air. Upon admission to the hospital, the patient's D-dimer was found to be 3.74; however, a CTA was not performed as the patient was already on Eliquis at home for prior pulmonary embolism and the elevation could have been due to COVID alone. The patient was started on high-flow nasal cannula during her stay and slowly weaned to nasal cannula. She was treated with 6 mg of dexamethasone during her stay as well as remdesivir. The patient's anxiety was also treated during her stay. Home O2 was arranged for the patient and her electrolytes were replaced as needed during her stay. Towards the end of her stay, the patient reported increasing dental pain and exam revealed purulent discharge from previous site of extraction. Due to the patient's penicillin allergy and high resistance of clindamycin at our hospital, the patient was started on levofloxacin and metronidazole to treat the dental infection. It is recommended that the patient followup with the dentist who performed the extraction upon discharge. DISPOSITION: Stable. DISCHARGE INSTRUCTIONS: 1. Location: Home. 2. Activity: As tolerated. 3. Diet: No restrictions. 4. Followup: Follow up with primary care provider in 7 days. Job ID: [id number]
--- NOTE | 2020-04-05 21:43 | EKG ---
Test Reason : DYSPNEA Blood Pressure : / mmHG Vent. Rate : 120 BPM Atrial Rate : 120 BPM P-R Int : 144 ms QRS Dur : 080 ms QT Int : 342 ms P-R-T Axes : 048 025 061 degrees QTc Int : 483 ms Sinus tachycardia Possible Left atrial enlargement Nonspecific ST abnormality Abnormal ECG Confirmed by PASCUAL LUTZ DO ([id number]), associate editor VERÓNICA YAP ([id number] on 04/05/2020 9:42:52 PM Referred By: Confirmed By:PASCUAL LUTZ DO
== END 2020-04-05 12:31 | disposition home or self-care (01) | DRG 177 ==
LOC: ERS 11:04 → 2SW 12:45 → T4-A 04-03 19:09
PROVIDERS: ADMIT Student in an Organized Health Care Education/Training Program; ATTEND Student in an Organized Health Care Education/Training Program
PROC: XW033E5 Introduction of Remdesivir Anti-infective into Peripheral Vein, Percutaneous Approach, New Technology Group 5 (ICD-10-PCS; principal; 2020-03-29)
DX: U07.1 COVID-19 (principal); J12.82 Pneumonia due to coronavirus disease 2019; J96.01 Acute respiratory failure with hypoxia; E87.2 Acidosis; G62.9 Polyneuropathy, unspecified; I10 Essential (primary) hypertension; K21.9 Gastro-esophageal reflux disease without esophagitis; F17.210 Nicotine dependence, cigarettes, uncomplicated; F41.9 Anxiety disorder, unspecified; F31.9 Bipolar disorder, unspecified; G89.29 Other chronic pain; M54.9 Dorsalgia, unspecified; E87.6 Hypokalemia; K04.7 Periapical abscess without sinus; T45.516A Underdosing of anticoagulants, initial encounter; R00.0 Tachycardia, unspecified; Z90.49 Acquired absence of other specified parts of digestive tract; Z90.89 Acquired absence of other organs; Z98.890 Other specified postprocedural states; Z88.1 Allergy status to other antibiotic agents; Z88.0 Allergy status to penicillin; Z79.899 Other long term (current) drug therapy; Z79.01 Long term (current) use of anticoagulants; Z79.51 Long term (current) use of inhaled steroids; Z82.49 Family history of ischemic heart disease and other diseases of the circulatory system; Z86.711 Personal history of pulmonary embolism; Z91.5 Personal history of self-harm; Z88.5 Allergy status to narcotic agent
CPT/HCPCS: 36415; 71045; 80053; 82728; 83605; 83615; 83735; 84145; 84484; 84703; 85025; 85379; 86140; 87040; 87635; 93005; 93010; 96365; 96372; 96375; J1100; J1650; J1956; J3475; J3480; J3490; J7050; J8540; Q0162; U0003; U0005